=== PATIENT | male | born 1955 | race Caucasian/White ===

== ENCOUNTER 2016-10-25 23:45 | Emergency (ER) | payer OTHER ==
[~2016-10-25] VITALS: Ht 193 cm; Wt 163.3 kg
[~2016-10-25 23:45] MED LIST: ALLOPURINOL300 MG PO; DURAGESIC100 MCG TOP; LASIX20 MG PO; LISINOPRIL HCTZ1 TAB PO; OXYCODONE HCL30 MG PO; SYMBICORT 160/41 PUF INH; VENTOLIN1 PUF INH; Vitamin B12 PO; XANAX0.5 MG PO
--- NOTE | 2016-10-25 23:55 | ED CARDIAC/CP/PALPITATIONS ---
History of Present Illness General Chief Complaint: General Adult Stated Complaint: FEVER, SORE THROAT, "HES IN AFIB" PER Source: patient Exam Limitations: no limitations Vital Signs & Intake/Output Vital Signs & Intake/Output Vital Signs Date Time Temp Pulse Resp B/P Pulse O2 O2 Flow FiO2 Ox Delivery Rate 10/26 0259 100.7 10/26 0006 100.7 85 18 157/89 97 Room Air 10/26 0005 Room Air Allergies Coded Allergies: NO KNOWN ALLERGIES (10/26/16) Reconcile Medications Albuterol Sulfate (Ventolin) 1 UNIT PUF 2 PUF INH Q4P PRN SHORTNESS OF BREATH Albuterol Sulfate (Ventolin Hfa) 90 MCG HFA.AER.AD 2 PUF INH Q4-6 PRN PRN WHEEZE/COUGH Allopurinol 300 MG TAB 1 TAB PO DAILY GOUT (Reported) Alprazolam (Xanax) 0.5 MG TABLET 1 TAB PO BID PRN ANXIETY (Reported) Budesonide/Formoterol Fumara (Symbicort 160-4.5 Mcg Inhaler) 160 MCG/4.5 MCG PUF 2 PUF INH BID COPD Fentanyl Citrate (Duragesic) 75 MCG/HOUR PATCH.TD72 1 PATCH TOP Q48 PAIN ( Reported) HOLD IF MENTAL STATUS CHANGES OR BREATHING PROBLEMS Furosemide (Lasix) 20 MG TABLET 20 MG PO DAILY LEG SWELLING FOLLOW UP WITH PCP ABOUT NEED FOR CONTINUING Levofloxacin (Levaquin) 500 MG TABLET 1 TAB PO DAILY BRONCHITIS LISINOPRIL/HYDROCHLOROTHIAZIDE (Lisinopril-Hctz 20-25 MG Tab) 20 MG-25 MG TABLET 1 TAB PO DAILY HYPERTENSION (Reported) OXYCODONE HCL (Oxycodone HCl) 30 MG TABLET 1 TAB PO Q4 PAIN (Reported) HOLD IF MENTAL STATUS CHANGES, OR IF BREATHING PROBLEM [Vitamin B12] 250 MCG TAB 250 MCG PO DAILY VITAMIN SUPPLEMENT Triage Nurses Notes Reviewed? yes Onset: Gradual Duration: day(s): Timing: recent history Quality/Severity: moderate Location: cough and dyspnea Radiation: no radiation Activities at Onset: none Prior Chest Pain/Card Workup: history of atrial fibrillation. Negative stress test in 2016 Associated Symptoms: cough associated with phlegm HPI: 61-year-old gentleman history of atrial fibrillation on Peridex, history of cigarette smoking, presents with 2-3 days of cough productive of copious green and yellow sputum. He notes that he has had low-grade temperatures. He has a sore throat and nasal congestion. He states that he has no wheezing, chest pain , shortness of breath, increased pedal edema. He is otherwise well. Past History Travel History Traveled to [place] past 21 day No Medical History Any Pertinent Medical History? see below for history Cardiovascular: AFIB, hypertension Respiratory: COPD History of MRSA: No History of VRE: No History of CDIFF: No Surgical History Surgical History: non-contributory Psychosocial History Who do you live with Spouse What is your primary language Faroese Family History Family History, If Any: FATHER Relation not specified for: FH: COPD (chronic obstructive pulmonary disease) FH: diabetes mellitus FH: esophageal cancer FH: Rosibel Gehrig's disease Hx Contributory? No Review of Systems Review of Systems Constitutional: Reports: no symptoms. EENTM: Reports: no symptoms. Respiratory: Reports: no symptoms. Cardiovascular: Reports: no symptoms. GI: Reports: no symptoms. Genitourinary: Reports: no symptoms. Musculoskeletal: Reports: no symptoms. Skin: Reports: no symptoms. Neurological/Psychological: Reports: no symptoms. Hematologic/Endocrine: Reports: no symptoms. Immunologic/Allergic: Reports: no symptoms. All Other Systems: Reviewed and Negative Physical Exam Physical Exam General Appearance: well developed/nourished, no apparent distress Head: atraumatic, normal appearance Eyes: Bilateral: normal appearance. Ears, Nose, Throat: pharyngeal erythema Neck: normal inspection, supple, full range of motion Respiratory: rhonchi, no wheezing Cardiovascular: irregularly irregular Gastrointestinal: normal bowel sounds, soft, non-tender, no organomegaly Back: normal inspection, normal range of motion Extremities: normal inspection Neurologic/Psych: no motor/sensory deficits, awake, alert, oriented x 3 Skin: intact, normal color, warm/dry Core Measures ACS in differential dx? No Severe Sepsis Present: No Septic Shock Present: No Progress Differential Diagnosis: CHF/pulm edema, costochondritis, bronchitis vs pneumonia Plan of Care: Orders Procedure Date/time Status PARTIAL THROMBOPLASTIN TIME 10/26 2355 Complete PROTHROMBIN TIME 10/26 2355 Complete RAPID VIRAL INFLUENZA A 10/25 2354 Complete THROAT CULTURE W/QUICK STREP 10/25 2354 Active TROPONIN LEVEL 10/25 2354 Complete COMPREHENSIVE METABOLIC PANEL 10/25 2354 Complete CBC WITHOUT DIFFERENTIAL 10/25 2354 Complete EKG 10/25 2349 Active Laboratory Tests 10/26/16 0027: Anion Gap 9, Estimated GFR > 60, BUN/Creatinine Ratio 20.0, Glucose 107 H, Calcium 9.4, Total Bilirubin 0.6, AST 32, ALT 47, Alkaline Phosphatase 94, Troponin I 0.01, Total Protein 6.7, Albumin 4.0, Globulin 2.7, Albumin/Globulin Ratio 1.5, PT 12.0, INR 1.14, APTT 41 H, CBC w Diff NO MAN DIFF REQ, RBC 5.15, MCV 97.4 H, MCH 33.4 H, RDW 14.8 H, MPV 8.3, Gran % 82.9 H, Lymphocytes % 5.1 L, Monocytes % 11.9 H, Eosinophils % 0, Basophils % 0.1, Absolute Granulocytes 8.1 H, Absolute Lymphocytes 0.5 L, Absolute Monocytes 1.2 H, Absolute Eosinophils 0, Absolute Basophils 0, PUBS MCHC 34.3 Microbiology 10/26 0035 NASOPHARYN: Influenza Virus A & B Rapid Smear - COMP Diagnostic Imaging: Viewed by Me: Radiology Read. Discussed w/RAD: Radiology Read. CXR Impression: no acute abnormality, no infiltrates, normal size heart, normal mediastinum Initial ED EKG: AFIB, rate in low 100's Comments: PATIENT: ELAINE KNAPP PRESENT AGE: 61 PATIENT ACCOUNT NO: [id number] : 59 LOCATION: [facility] ORDERING PHYSICIAN: LAZ PIERSON MD SERVICE DATE: 10/25/16 EXAM TYPE: RAD - XRY-PORTABLE CHEST XRAY EXAMINATION: XR PORTABLE CHEST CLINICAL INFORMATION: Chest discomfort. COMPARISON: Chest 03/09/2014 TECHNIQUE: Portable AP view of the chest was obtained. 11:53 PM FINDINGS: Portion of the left lung base not included in study. Cardiac silhouette enlarged. No pulmonary vascular congestion. No infiltrate or large pleural effusion. IMPRESSION: No acute change of the chest. DICTATED BY: JULIETTE WINTERS MD DATE/TIME DICTATED:10/26/1617 TRAY SETTER:YEVGENIY DATE/TIME TRANSCRIBED:10/26/1617 CONFIDENTIAL, DO NOT COPY WITHOUT APPROPRIATE AUTHORIZATION. <Electronically signed in Other Vendor System> SIGNED BY: JULIETTE WINTERS MD 03/20/17 0022 Departure Departure Disposition: HOME OR SELF CARE Condition: Stable Clinical Impression Primary Impression: Bronchitis Secondary Impressions: Atrial fibrillation Referrals: LUIS JIMÉNEZ DO (PCP/Family) Departure Forms: Customer Survey General Discharge Information Prescriptions: Current Visit Scripts Levofloxacin (Levaquin) 1 TAB PO DAILY #7 TAB Albuterol Sulfate (Ventolin Hfa) 2 PUF INH Q4-6 PRN PRN WHEEZE/COUGH #1 INHAL Ref 1 Comments 10/26/16, 3:23AM... Pt feeling well.... cxr neg. labs benign... pt known to have afib, rate is well controlled.... he never had chest pain/syncopal type symptoms... he would like to go home... he is safe for discharge... gave rx for levaquin and albuterol... close follow up advised. Critical Care Note Critical Care Note Critical Care Time: non-applicable
[2016-10-26 00:06] VITALS: BP 157/89
--- NOTE | 2016-10-26 00:22 | RADIOLOGY REPORT ---
EXAMINATION: XR PORTABLE CHEST CLINICAL INFORMATION: Chest discomfort. COMPARISON: Chest 03/09/2014 TECHNIQUE: Portable AP view of the chest was obtained. 11:53 PM FINDINGS: Portion of the left lung base not included in study. Cardiac silhouette enlarged. No pulmonary vascular congestion. No infiltrate or large pleural effusion. IMPRESSION: No acute change of the chest.
[2016-10-26 01:34] LABS: ABSOLUTE BASOPHIL COUNT 0 /CUMM (0.0-0.2); ABSOLUTE EOSINOPHIL COUNT 0 /CUMM (0.0-0.7); ABSOLUTE GRANULOCYTE CT 8.1 /CUMM (1.4-6.5); ABSOLUTE LYMPH COUNT 0.5 /CUMM (1.2-3.4); ABSOLUTE MONOCYTE COUNT 1.2 /CUMM (0.10-0.60); BASOPHIL % 0.1 % (0.0-2.0); EOSINOPHIL % 0 % (0-5); GRANULOCYTE % 82.9 % (42.2-75.2); HEMATOCRIT 50.2 % (42-52); MEAN CORPUSCULAR HGB 33.4 PG (27.0-31.0); MEAN CORPUSCULAR HGB CONC 34.3 G/DL (33.0-37.0); MEAN CORPUSCULAR VOLUME 97.4 FL (80.0-94.0); MEAN PLATELET VOLUME 8.3 FL (7.4-10.4); PLATELET COUNT 132 /CUMM (130-400); RBC DISTRIBUTION WIDTH 14.8 % (11.5-14.5); RED BLOOD CELL CT 5.15 /CUMM (4.70-6.10); WHITE BLOOD CELL COUNT 9.8 /CUMM (4.8-10.8)
[2016-10-26 01:38] LABS: PTT 41 SEC (25-37)
[2016-10-26] MEDS ORDERED: LEVAQUIN500 M1 PO (03:12)
[2016-10-26] MEDS ORDERED: VENTOLIN HFA18 GM INH (03:12)
== END 2016-10-26 03:11 ==
LOC: ERH 23:45
PROVIDERS: Pediatrics
DX: J40 Bronchitis, not specified as acute or chronic (principal); I48.91 Unspecified atrial fibrillation; Z87.891 Personal history of nicotine dependence; J02.9 Acute pharyngitis, unspecified
CPT/HCPCS: 87804; 87804-59; 93005; 93010; J0456; J0696

== ENCOUNTER 2017-12-16 21:41 | Inpatient (IN) | payer OTHER ==
[~2017-12-16] VITALS: Ht 193 cm; Wt 150.6 kg
[~2017-12-16 21:41] MED LIST changes: +ALLOPURINOL300 M1 PO; -ALLOPURINOL300 MG PO; +DURAGESIC1 EAC4 TOP; -DURAGESIC100 MCG TOP; +LEVAQUIN500 M1 PO; -LISINOPRIL HCTZ1 TAB PO; +LISINOPRIL-HCT1 EAC1 PO; +OXYCODONE HCL20 M2 PO; -OXYCODONE HCL30 MG PO; +VENTOLIN HFA18 GM INH; +XANAX0.5 M1 PO; -XANAX0.5 MG PO
--- NOTE | 2017-12-16 22:10 | ED GI/GU/ABDOMINAL COMPLAINT ---
History of Present Illness General Chief Complaint: Abdominal Pain/Flank Pain Stated Complaint: "ABD PAIN" Source: patient, family Exam Limitations: no limitations Vital Signs & Intake/Output Vital Signs & Intake/Output Vital Signs Date Time Temp Pulse Resp B/P B/P Pulse O2 O2 Flow FiO2 Mean Ox Delivery Rate 12/17 0105 98.2 88 16 130/76 94 Nasal 4.0L Cannula 12/16 2308 Nasal 3.0L Cannula 12/16 2306 98.1 92 18 120/76 92 Nasal 3.0L Cannula 12/16 2229 77 16 116/70 91 Room Air 12/16 2153 97.6 76 18 109/64 91 Room Air ED Intake and Output 12/17 0000 12/16 1200 Intake Total 0 Output Total 0 Balance 0 Intake, Oral 0 Output, Urine 0 Patient 365 lb Weight Allergies Coded Allergies: NO KNOWN ALLERGIES (10/26/16) Reconcile Medications Albuterol Sulfate (Ventolin) 1 UNIT PUF 2 PUF INH Q4P PRN SHORTNESS OF BREATH Albuterol Sulfate (Ventolin Hfa) 90 MCG HFA.AER.AD 2 PUF INH Q4-6 PRN PRN WHEEZE/COUGH Allopurinol 300 MG TAB 1 TAB PO DAILY GOUT (Reported) Alprazolam (Xanax) 0.5 MG TABLET 1 TAB PO BID PRN ANXIETY (Reported) Budesonide/Formoterol Fumara (Symbicort 160-4.5 Mcg Inhaler) 160 MCG/4.5 MCG PUF 2 PUF INH BID COPD Fentanyl Citrate (Duragesic) 75 MCG/HOUR PATCH.TD72 1 PATCH TOP Q48 PAIN ( Reported) HOLD IF MENTAL STATUS CHANGES OR BREATHING PROBLEMS Furosemide (Lasix) 20 MG TABLET 20 MG PO DAILY LEG SWELLING FOLLOW UP WITH PCP ABOUT NEED FOR CONTINUING Levofloxacin (Levaquin) 500 MG TABLET 1 TAB PO DAILY BRONCHITIS LISINOPRIL/HYDROCHLOROTHIAZIDE (Lisinopril-Hctz 20-25 MG Tab) 20 MG-25 MG TABLET 1 TAB PO DAILY HYPERTENSION (Reported) OXYCODONE HCL (Oxycodone HCl) 30 MG TABLET 1 TAB PO Q4 PAIN (Reported) HOLD IF MENTAL STATUS CHANGES, OR IF BREATHING PROBLEM [Vitamin B12] 250 MCG TAB 250 MCG PO DAILY VITAMIN SUPPLEMENT Triage Note: 62 YEAR OLD MALE BIBA FROM WORK ([employer]) WITH GENERALIZED ABDOMINAL PAIN. REPORTS LAST NORMAL BM WAS YESTERDAY. DENIES N,V,D. EMS STATES HE WAS PALE AND DIAPHORETIC AT WORK. HX COPD,DIABETES, AFIB. PATIENT IS ON PRADAXA. HE IS AWAKE, ALERT, ORIENTED, CALM, AND COOPERATIVE. Triage Nurses Notes Reviewed? yes Onset: Gradual Duration: hour(s): Timing: single episode today Quality/Severity: severe Severity Numbers: 10 Location: periumbilical Radiation: no radiation HPI: 62YO MALE with hx of HTN, DM, COPD, afib on pradaxa presents to ED complaining of abdominal pain x 2 hours. Patient states that around 8 PM he began having gradually increasing periumbilical abdominal pain. Pain described as severe, 10 /10, without radiation, constant. Patient has no history of similar pain in the past. Patient has not had anything to eat since 0300 this a.m. Last bowel movement was yesterday and normal. Patient denies dyspnea, chest pain, back pain, urinary symptoms, diarrhea, constipation, nausea, vomiting, fevers, chills. (Amy García) Past History Travel History Traveled to [place] past 21 day No Medical History Any Pertinent Medical History? see below for history Neurological: NONE EENT: NONE Cardiovascular: AFIB, hypertension Respiratory: COPD Gastrointestinal: NONE Hepatic: NONE Renal: NONE Musculoskeletal: ARTHRITIS Psychiatric: NONE Endocrine: diabetes Blood Disorders: NONE Cancer(s): NONE PERSONAL FINANCIAL REPRESENTATIVE/Reproductive: NONE History of MRSA: No History of VRE: No History of CDIFF: No Surgical History Surgical History: non-contributory Psychosocial History Who do you live with Spouse What is your primary language Hungarian Family History Family History, If Any: FATHER Relation not specified for: FH: COPD (chronic obstructive pulmonary disease) FH: diabetes mellitus FH: esophageal cancer FH: Rosibel Gehrig's disease Hx Contributory? No (Amy García) Review of Systems Review of Systems Constitutional: Reports: no symptoms. EENTM: Reports: no symptoms. Respiratory: Reports: no symptoms. Cardiovascular: Reports: no symptoms. GI: Reports: see HPI. Genitourinary: Reports: no symptoms. Musculoskeletal: Reports: no symptoms. Skin: Reports: no symptoms. Neurological/Psychological: Reports: no symptoms. Hematologic/Endocrine: Reports: no symptoms. Immunologic/Allergic: Reports: no symptoms. All Other Systems: Reviewed and Negative (Malgorzata QUEEN,Aym Gonsales) Physical Exam Physical Exam General Appearance: well developed/nourished, alert, awake, mild distress, obese Head: atraumatic, normal appearance Eyes: Bilateral: normal appearance. Ears, Nose, Throat, Mouth: hearing grossly normal Neck: normal inspection, supple, full range of motion Respiratory: wheezing bilaterally Cardiovascular: normal peripheral pulses, irregularly irregular Peripheral Pulses: 2+ radial (R), 2+ radial (L), 2+ dorsalis pedis (R), 2+ dorsalis pedis (L) Gastrointestinal: normal bowel sounds, soft, no organomegaly, exam limited d/t obesity, periumbilical tenderness, no gaurding Back: normal inspection, normal range of motion Extremities: normal range of motion Neurologic/Psych: awake, alert, oriented x 3 Skin: intact, normal color, warm/dry Core Measures ACS in differential dx? No Sepsis Present: No Sepsis Focused Exam Completed? No (Malgorzata QUEEN,Amy Gonsales) Progress Differential Diagnosis: AAA, appendicitis, biliary colic, bowel obstruction, colon cancer, cholecystitis, diverticulitis, gastritis, hepatitis, hernia, ischemic bowel, inflamm bowel dis, pancreatitis, peptic ulcer, PUD/GERD, perforated viscous, pyelonephritis, SBO, UTI/pyelo Plan of Care: Orders Procedure Date/time Status Nothing by Mouth 12/17 B Active CBC WITHOUT DIFFERENTIAL 12/17 0600 Active BASIC ELECTROLYTES PLUS BUN&CR 12/17 0600 Active Pathway - chart 12/17 0152 Active TRC EVALUATION (GEN) 12/17 0142 Active OXYGEN SETUP (GEN) 12/17 0142 Active Saline Lock 12/17 0142 Active Pathway - chart 12/17 0142 Active Patient Data 12/17 0142 Active Code Status 12/17 0142 Active Add-on Test (ER Only) 12/17 0141 Active Admit to inpatient 12/17 0117 Active LACTIC ACID 12/17 0104 Complete Glucose Management Indications 12/17 UNK Active VTE Mechanical Prophylaxis 12/17 UNK Active Vital Signs 12/17 UNK Active MISTAKE 12/17 UNK Active Intake & Output 12/17 UNK Active FingerStick- Glucose 12/17 UNK Active CIWA 12/17 UNK Active Activity/Ambulation 12/17 UNK Active ETHANOL 12/16 2215 Active URINALYSIS 05/10 2204 Complete TROPONIN LEVEL 12/17 2203 Active LIPASE 12/17 2203 Active LACTIC ACID 12/17 2203 Active COMPREHENSIVE METABOLIC PANEL 12/17 2203 Active CBC WITHOUT DIFFERENTIAL 12/17 2203 Complete EKG 12/17 2203 Active Current Medications Sig/Pablo Start time Last Medication Dose Stop Time Status Admin Atorvastatin Calcium 10 MG 1700 12/17 170 AC (Lipitor) Allopurinol 300 MG DAILY 12/17 899 AC (Zyloprim) Amlodipine Besylate 10 MG DAILY 12/17 899 AC (Norvasc) Diltiazem HCl 360 MG DAILY 12/17 899 AC (Cardizem CD) Docusate Sodium 100 MG DAILY 12/17 899 AC (Colace) Fentanyl Citrate 100 MCG Q48 12/17 899 UNVr (Duragesic) Folic Acid 1 MG DAILY 12/17 899 AC (Folic Acid) Furosemide 40 MG DAILY 12/17 899 AC (Lasix) Hydrochlorothiazide 25 MG DAILY 12/17 899 AC (Hydrodiuril) Lisinopril 20 MG DAILY 12/17 899 AC (Prinivil) Multivitamins 1 TAB DAILY 12/17 899 AC (Theragran Vitamins) Nicotine 14 MG Q24 12/17 899 AC (Nicotine Cq) Potassium Chloride 10 MEQ DAILY 12/17 899 AC (K-Dur) Thiamine HCl 100 MG DAILY 12/17 899 AC (Vitamin B1) Insulin Aspart 0 AC 12/17 699 AC (NovoLOG) Acetaminophen 1,000 MG Q6H 12/17 199 AC 12/17 (Ofirmev) 12/17 N/A 1 UNIT (No Carrier) Morphine Sulfate 2 MG Q4P PRN 12/17 199 AC (MORPHINE SULFATE) Oxycodone HCl 20 MG 4 TIMES/DAY PRN 12/17 199 AC (Roxicodone) Budesonide/ 2 PUF BID 12/17 146 AC Formoterol Fumarate (Symbicort) Dextrose 50 GM PER PROTOCL PRN 12/17 144 UNVr (Dextrose 50%) Albuterol Sulfate 2 PUF Q4-6 PRN PRN 12/17 129 CAN (Ventolin) Albuterol Sulfate 2 PUF Q4P PRN 12/17 129 AC (Ventolin) Ondansetron HCl 4 MG Q8P PRN 05/11 0130 AC (Zofran) Sodium Chloride 1,000 ML .Q10H 12/17 0130 AC 12/17 (Normal Saline 0.9%) 0130 Laboratory Tests 12/17/17 0135: Urine Color YEL, Urine Clarity HAZY H, Urine pH 6.5, Ur Specific Gardner 1.010, Urine Protein 30 H, Urine Ketones NEG, Urine Nitrite NEG, Urine Bilirubin NEG, Urine Urobilinogen 4.0 H, Ur Leukocyte Esterase NEG, Ur Microscopic SEDIMENT EXAMINED, Urine RBC RARE, Urine WBC RARE, Ur Epithelial Cells RARE, Urine Bacteria RARE H, Urine Mucus RARE, Urine Hemoglobin NEG, Urine Glucose NEG 12/17/17 0115: Lactic Acid 1.9 12/16/17 2215: Anion Gap 17 H, Estimated GFR > 60, BUN/Creatinine Ratio 25.7 H, Glucose 111 H, Lactic Acid 3.6 H, Calcium 9.2, Total Bilirubin 0.8, AST 24, ALT 29, Alkaline Phosphatase 79, Troponin I < 0.01, Total Protein 7.1, Albumin 4.3, Globulin 2.8, Albumin/Globulin Ratio 1.5, Lipase 45, CBC w Diff NO MAN DIFF REQ, RBC 5.24, MCV 99.2 H, MCH 32.8 H, MCHC 33.1, RDW 14.0, MPV 7.3 L, Gran % 72.9 , Lymphocytes % 15.5 L, Monocytes % 10.4 H, Eosinophils % 0.8, Basophils % 0.4 , Absolute Granulocytes 8.0 H, Absolute Lymphocytes 1.7, Absolute Monocytes 1.1 H, Absolute Eosinophils 0.1, Absolute Basophils 0, Serum Alcohol Pending Patient with wheezing on physical exam however reports no dyspnea, he does have COPD at baseline. Patient complaining of severe abdominal pain, will obtain CT scan of his abdomen to assess for acute abdominal pathology. Patient arrives in mild distress relating to his pain. He also has history of atrial fibrillation. ischemic colitis is possible, CT scan with IV contrast to be obtained. Patient reporting reduction of pain from 10/10 to 3/10 following IV pain medications. The patient was signed out to Dr. Stovall pending labs, CT scan. Initial ED EKG: atrial fibrillation @76bpm, nonspecific IVCD Prior EKG: unchanged (10/25/16) Hand-Off Endorsed To: Major Stovall MD Endorsed Time: 2300 Pending: CT, labs (Amy García) Diagnostic Imaging: Viewed by Me: CT Scan. Discussed w/RAD: CT Scan. Radiology Impression: Prominent periumbilical hernia containing loops of small bowel which are mildly prominent fluid-filled. Mild stranding is seen in the associated fat. This may represent an incarcerated hernia. There is no evidence of bowel obstruction at this time, with the remainder of the small bowel normal in caliber and gas and stool seen throughout the colon. Additional findings as above, including cysts in the liver and left kidney. Gallbladder sludge. Ectatic infrarenal abdominal aorta. Comments: Sepsis bolus not given secondary to cardiac condition and risk of volume overload and CHF. (Major Stovall MD) Departure Departure Disposition: STILL A PATIENT Condition: Stable Referrals: Jose A Melendez DO (PCP/Family) Departure Forms: Customer Survey General Discharge Information (Amy García) Departure Clinical Impression Primary Impression: Incarcerated umbilical hernia Secondary Impressions: Abdominal pain Qualifiers: Abdominal location: periumbilical Qualified Code: R10.33 - Periumbilical pain Chronic atrial fibrillation Admission Note Spoke With: Malick Lynch DO Documentation of Exam: Documentation of any treatments & extenuating circumstances including Concerns Regarding Discharge (functional status, medication knowledge or non-compliance, living conditions, etc.) that warrant an admission rather than observation: Serial CIWA nothing by mouth IV hydration surgical evaluation medication adjustment continuing care discharge planning PA/[facility] Co-Sign Statement Statement: ED Attending supervision documentation- x I saw and evaluated the patient. I have also reviewed all the pertinent lab results and diagnostic results. I agree with the findings and the plan of care as documented in the PA's/[facility]'s documentation. Periumbilical hernia defect unable to be reduced, later reduced by surgery. [] I have reviewed the ED Record and agree with the PA's/[facility]'s documentation. [] Additions or exceptions (if any) to the PAs/[facility]'s note and plan are summarized below: [] (Major Stovall MD)
[2017-12-16 22:27] LABS: ABSOLUTE BASOPHIL COUNT 0 /CUMM (0.0-0.2); ABSOLUTE EOSINOPHIL COUNT 0.1 /CUMM (0.0-0.7); ABSOLUTE LYMPH COUNT 1.7 /CUMM (1.2-3.4); ABSOLUTE MONOCYTE COUNT 1.1 /CUMM (0.10-0.60); BASOPHIL % 0.4 % (0.0-2.0); EOSINOPHIL % 0.8 % (0-5); GRANULOCYTE % 72.9 % (42.2-75.2); MEAN CORPUSCULAR HGB 32.8 PG (27.0-31.0); MEAN CORPUSCULAR HGB CONC 33.1 G/DL (33.0-37.0); MEAN CORPUSCULAR VOLUME 99.2 FL (80.0-94.0); MEAN PLATELET VOLUME 7.3 FL (7.4-10.4); PLATELET COUNT 231 /CUMM (130-400); RED BLOOD CELL CT 5.24 /CUMM (4.70-6.10); WHITE BLOOD CELL COUNT 10.9 /CUMM (4.8-10.8)
--- NOTE | 2017-12-16 23:54 | CT SCAN REPORT ---
EXAMINATION: CT ABDOMEN AND PELVIS WITH CONTRAST CLINICAL INFORMATION: Periumbilical abdominal pain for 2 hours. COMPARISON: None TECHNIQUE: Multidetector volumetric imaging was performed of the abdomen and pelvis following IV administration of 95 mL of Optiray 320 intravenous contrast. Sagittal and coronal reformatted images were obtained on the technologist's workstation. DLP: 1580 mGy-cm FINDINGS: LUNG BASES: Basilar atelectasis. Coronary artery calcifications. The heart is mildly enlarged. LIVER, GALLBLADDER, AND BILIARY TREE: The liver is normal in size, shape, and attenuation. There is a 2.2 cm cyst in segment 5 of the liver. No solid hepatic lesion or biliary ductal dilatation is present. There is layering high attenuation within the gallbladder lumen suggestive of sludge. No gallbladder wall thickening or pericholecystic fluid. PANCREAS: Unremarkable. SPLEEN: Unremarkable. ADRENAL GLANDS: Unremarkable. KIDNEYS AND URETERS: The kidneys are normal in size, shape, and attenuation. No hydronephrosis, hydroureter, or calculi seen. Mild symmetric perinephric stranding. There is a 2 cm cortical cyst at the lower pole of the left kidney. BLADDER: Unremarkable. GASTROINTESTINAL TRACT: The stomach is decompressed with no gross abnormality. The proximal small bowel is normal in caliber. There is no obstruction. Small bowel extends into a prominent periumbilical hernia. There is stranding in the region of the bowel with mild fluid-filled prominent appearance. Bowel enters and exits the hernia twice. Gas and stool are seen in the colon. No colonic wall thickening. No free air. No fluid collection. ABDOMINAL WALL: Prominent ventral periumbilical hernia containing small bowel. The abdominal wall defect measures 4.7 cm transverse by 3.9 cm cc. The hernia sac measures 12.5 x 8.3 x 10.4 cm. Small fat-containing right inguinal hernia also noted. LYMPH NODES: Normal. VASCULAR: Ectatic infrarenal abdominal aorta measuring 3.7 cm AP. Moderate atherosclerotic calcifications. PELVIC VISCERA: The prostate and seminal vesicles are unremarkable. OSSEOUS STRUCTURES: No acute or suspicious osseous abnormality. Moderate degenerative changes throughout the spine. Moderate degenerative changes of the hips. IMPRESSION: Prominent periumbilical hernia containing loops of small bowel which are mildly prominent fluid-filled. Mild stranding is seen in the associated fat. This may represent an incarcerated hernia. There is no evidence of bowel obstruction at this time, with the remainder of the small bowel normal in caliber and gas and stool seen throughout the colon. Additional findings as above, including cysts in the liver and left kidney. Gallbladder sludge. Ectatic infrarenal abdominal aorta. This critical result was discussed with Dr. Stovall by telephone at 12/16/2017 11:47 PM and it was ascertained that the content and urgency of the report was understood at the time of direct communication.
[2017-12-17] VITALS (12 sets, daily range): BP systolic 128–156; BP diastolic 75–98
--- NOTE | 2017-12-17 02:08 | Cons- General Surgery ---
General Information and HPI Consulting Request Date of Consult: 12/17/17 Requested By: DR. THOMAS Reason for Consult: ABDOMINAL PAIN Source of Information: patient, family Exam Limitations: no limitations History of Present Illness: This is a 62-year-old obese male who presented to the emergency room complaining of diffuse abdominal pain for the last 6 hours. Patient was at work and was not feeling well. He described a continuous dull persistent ache at the area of his belly button.. He had feelings of nausea without vomiting and increasing pain in this area. At one point he felt clammy and short of breath but this subsided. He denies any fevers or chills fevers or chills. He has had 3 abdominal surgeries in the past right inguinal hernia repair 2 and a left inguinal hernia repair. This was performed years ago and he has had no issues up until today . His last bowel move was yesterday and it was normal appearing he does not complain of any bloody stools or urinary symptoms. Allergies/Medications Allergies: Coded Allergies: NO KNOWN ALLERGIES (10/26/16) Home Med List: Albuterol Sulfate (Proair Hfa) 90 MCG HFA.AER.AD 2 PUF INH Q4-PRN PRN Shortness of breath (Reported) Allopurinol 300 MG TABLET 1 TAB PO DAILY GOUT (Reported) Alprazolam (Xanax) 0.5 MG TABLET 1 TAB PO BIDP PRN ANXIETY (Reported) Atorvastatin Calcium 10 MG TABLET 1 TAB PO DAILY Heart Health (Reported) Budesonide/Formoterol Fumarate (Symbicort 160-4.5 Mcg Inhaler) 160 MCG-4.5 MCG/ ACTUATION HFA.AER.AD 2 PUF INH BID COPD (Reported) Celecoxib 200 MG CAPSULE 1 CAP PO BID Pain (Reported) Cyanocobalamin (Vitamin B-12) (Vitamin B-12) 250 MCG TABLET 1 TAB PO DAILY VITAMIN SUPPORT (Reported) Dabigatran Etexilate Mesylate (Pradaxa 150 MG) 150 MG CAPSULE 1 CAP PO BID Atrial Fibrilliation (Reported) Diltiazem HCl (Diltiazem 24HR ER) 360 MG CAP.ER.24H 1 CAP PO DAILY Blood Pressure (Reported) Docusate Sodium (Colace) 100 MG CAPSULE 1 CAP PO DAILY PRN Constipation Fentanyl Citrate (Duragesic) 100 MCG/HOUR PATCH.TD72 1 PAT TOP Q48 Pain ( Reported) Furosemide 40 MG TABLET 1 TAB PO DAILY Fluid Retention (Reported) Lisinopril/Hydrochlorothiazide (Lisinopril-Hctz 20-25 MG Tab) 20 MG-25 MG TABLET 1 TAB PO DAILY HTN (Reported) Metformin HCl 500 MG TABLET 1 TAB PO BID Diabetes (Reported) Metoprolol Tartrate 50 MG TABLET 1 TAB PO BID Atrial Fibrilliation Oxycodone HCl 20 MG TABLET 1 TAB PO Q4 Pain (Reported) Potassium Chloride 10 MEQ CAPSULE.ER 1 CAP PO DAILY Supplement (Reported) Sennosides (Senna) 8.6 MG TABLET 2 TAB PO DAILY PRN Constipation Zolpidem Tartrate (Ambien) 10 MG TABLET 1 TAB PO QPMP Sleep (Reported) Current Medications: Current Medications Sig/Pablo Start time Last Medication Dose Route Stop Time Status Admin Acetaminophen 1,000 MG Q6H 12/17 199 UNVr N/A 1 UNIT IV 12/17 2013 Albuterol Sulfate 2 PUF Q4 12/17 199 UNVr INH Albuterol Sulfate 2 PUF Q4-6 PRN PRN 12/17 129 CAN INH Albuterol Sulfate 2 PUF Q4P PRN 12/17 129 AC INH Allopurinol 300 MG DAILY 12/17 899 UNVr PO Amlodipine Besylate 10 MG DAILY 12/17 899 UNVr PO Atorvastatin Calcium 10 MG 1700 12/17 170 UNVr PO Budesonide/ 2 PUF BID 12/17 146 UNVr Formoterol Fumarate INH Dextrose 50 GM PER PROTOCL PRN 12/17 144 UNVr IV Diltiazem HCl 360 MG DAILY 12/17 899 UNVr PO Docusate Sodium 100 MG DAILY 12/17 899 UNVr PO Fentanyl Citrate 100 MCG Q48 12/17 899 UNVr TOP Folic Acid 1 MG DAILY 12/17 899 UNVr PO Furosemide 40 MG DAILY 12/17 899 UNVr PO Hydrochlorothiazide 25 MG DAILY 12/17 899 UNVr PO Insulin Aspart 0 AC 12/17 699 UNVr SC Ketorolac 0 .STK-MED ONE 12/16 2238 DC Tromethamine .ROUTE Ketorolac 15 MG ONCE ONE 12/16 2214 DC 12/16 Tromethamine IV 12/16 Lisinopril 20 MG DAILY 12/17 899 UNVr PO Morphine Sulfate 2 MG Q4P PRN 12/17 199 UNVr IV Morphine Sulfate 0 .STK-MED ONE 12/17 0001 DC .ROUTE Morphine Sulfate 6 MG ONCE ONE 12/165 DC 12/17 IV 12/17 2315 0030 Morphine Sulfate 0 .STK-MED ONE 12/16 224 DC .ROUTE Morphine Sulfate 2 MG ONCE ONE 12/16 2214 DC 12/16 IV 12/17 2215 223 Multivitamins 1 TAB DAILY 12/17 899 UNVr PO Nicotine 14 MG Q24 12/17 899 UNVr TOP Ondansetron HCl 4 MG Q8P PRN 12/17 129 UNVr IV Oxycodone HCl 20 MG 4 TIMES/DAY PRN 12/17 199 UNVr PO Potassium Chloride 10 MEQ DAILY 12/17 899 UNVr PO Sodium Chloride 1,000 ML .Q10H 12/17 129 UNVr 12/17 IV 0130 Sodium Chloride 1,000 ML BOLUS ONE 12/16 2214 DC 12/16 IV 12/16 2313 222 Thiamine HCl 100 MG DAILY 12/17 899 UNVr PO Past History Medical History Neurological: NONE EENT: NONE Cardiovascular: AFIB, hypertension Respiratory: COPD Gastrointestinal: NONE Hepatic: NONE Renal: NONE Musculoskeletal: ARTHRITIS Psychiatric: NONE Endocrine: diabetes Blood Disorders: NONE Cancer(s): NONE HELPDESK MANAGER/Reproductive: NONE Surgical History Pertinent Surgical History: non-contributory Family History Relations & Conditions If Any: FATHER Relation not specified for: FH: COPD (chronic obstructive pulmonary disease) FH: diabetes mellitus FH: esophageal cancer FH: Rosibel Gehrig's disease Review of Systems Review of Systems: Constitutional: No chills no fever no weakness HEENT: No blurred vision visual changes no throat pain nasal pain CV: denies chest pain edema orthopnea syncopal episode no peripheral edema Respiratory: No cough hemoptysis shortness of breath or wheeze GI: POS abdominal pain POS bloating NO constipation, diarrhea, bloody stools no vomiting Musculoskeletal: No neck pain back pain or joint swelling Skin: No recent acute changes in skin Neurological: No dizziness weakness or acute mental status changes Hematologic: no history of blood dyscrasia to include PE DVT or bleeding disorder No reported reaction to general anesthetics No recent fevers fluids or infections Exam & Diagnostic Data Vital Signs and I&O Vital Signs Date Time Temp Pulse Resp B/P B/P Pulse O2 O2 Flow FiO2 Mean Ox Delivery Rate 12/17 0105 98.2 88 16 130/76 94 Nasal 4.0L Cannula 12/16 2308 Nasal 3.0L Cannula 12/16 2306 98.1 92 18 120/76 92 Nasal 3.0L Cannula 12/16 2229 77 16 116/70 91 Room Air 12/16 2153 97.6 76 18 109/64 91 Room Air Intake & Output 12/17 0812/17 0000 12/16 1600 12/16 0800 12/16 0000 12/15 1600 Intake Total 1000 0 Output Total 0 Balance 1000 0 Intake, IV 1000 Intake, Oral 0 Output, Urine 0 Patient [address] scan shows Prominent periumbilical hernia containing loops of small bowel which are mildly prominent fluid-filled. Mild stranding is seen in the associated fat. This may represent an incarcerated hernia. There is no evidence of bowel obstruction at this time, with the remainder of the small bowel normal in caliber and gas and stool seen throughout the colon. Physical Exam: Physical examination patient is lying in bed alert and oriented 3 and family is present answering questions for the patient. When prompted he points to his abdomen and says he is very sore. Otherwise he has been sleeping. HEENT is within normal limits Neck is supple nontender with active range of motion CHest is clear to auscultation symmetric without rales rhonchi or wheeze Heart is regular rate rhythm without murmurs rubs gallops Abdomen is obese with tenderness along the periumbilical area. There is fullness and bulging of the umbilicus. Surrounding quadrants of the abdomen are nontender with positive bowel sounds. Patient is positioned in Trendelenburg and with gentle downward pressure on the umbilicus hernia contents are reduced with minimal pain. Patient tolerated this well. An abdominal binder was ordered BILATERAL lower extremities shows stasis dermatitis and chronic skin changes. There is no edema and no calf tenderness. 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 Admission Lab Results I reviewed the following labs: Laboratory Tests 12/17 12/17 0135 0115 Chemistry Lactic Acid (0.7 - 2.1 mmol/L) 1.9 Urines Urine Color (YEL,AMB,STR) YEL Urine Clarity (CLEAR) HAZY H Urine pH (5.0 - 8.0) 6.5 Ur Specific Perry (1.001 - 1.035) 1.010 Urine Protein (NEG,<30 MG/DL) 30 H Urine Ketones (NEG) NEG Urine Nitrite (NEG) NEG Urine Bilirubin (NEG) NEG Urine Urobilinogen (0.1 - 1.0 EU/dl) 4.0 H Ur Leukocyte Esterase (NEG) NEG Ur Microscopic SEDIMENT EXAMINED Urine RBC (0 - 5 /HPF) RARE Urine WBC (0 - 2 /HPF) RARE Ur Epithelial Cells (NONE,FEW) RARE Urine Bacteria (NEG/NONE) RARE H Urine Mucus (FEW,NONE) RARE Urine Hemoglobin (NEG) NEG Urine Glucose (N MG/DL) NEG 12/16 2215 Chemistry Sodium (137 - 145 mmol/L) 135 L Potassium (3.5 - 5.1 mmol/L) 3.2 L Chloride (98 - 107 mmol/L) 84 L Carbon Dioxide (22 - 30 mmol/L) 34 H Anion Gap (5 - 16) 17 H BUN (9 - 20 mg/dL) 18 Creatinine (0.7 - 1.2 mg/dL) 0.7 Estimated GFR (>60 ml/min) > 60 BUN/Creatinine Ratio (7 - 25 %) 25.7 H Glucose (65 - 99 mg/dL) 111 H Lactic Acid (0.7 - 2.1 mmol/L) 3.6 H Calcium (8.4 - 10.2 mg/dL) 9.2 Total Bilirubin (0.2 - 1.3 mg/dL) 0.8 AST (17 - 59 U/L) 24 ALT (21 - 72 U/L) 29 Alkaline Phosphatase (< 127 U/L) 79 Troponin I (<0.11 ng/ml) < 0.01 Total Protein (6.3 - 8.2 g/dL) 7.1 Albumin (3.5 - 5.0 g/dL) 4.3 Globulin (1.9 - 4.2 gm/dL) 2.8 Albumin/Globulin Ratio (1.1 - 2.2 %) 1.5 Lipase (23 - 300 U/L) 45 Hematology CBC w Diff NO MAN DIFF REQ WBC (4.8 - 10.8 /CUMM) 10.9 H RBC (4.70 - 6.10 /CUMM) 5.24 Hgb (14.0 - 18.0 G/DL) 17.2 Hct (42 - 52 %) 52.0 MCV (80.0 - 94.0 FL) 99.2 H MCH (27.0 - 31.0 PG) 32.8 H MCHC (33.0 - 37.0 G/DL) 33.1 RDW (11.5 - 14.5 %) 14.0 Plt Count (130 - 400 /CUMM) 231 MPV (7.4 - 10.4 FL) 7.3 L Gran % (42.2 - 75.2 %) 72.9 Lymphocytes % (20.5 - 51.1 %) 15.5 L Monocytes % (1.7 - 9.3 %) 10.4 H Eosinophils % (0 - 5 %) 0.8 Basophils % (0.0 - 2.0 %) 0.4 Absolute Granulocytes (1.4 - 6.5 /CUMM) 8.0 H Absolute Lymphocytes (1.2 - 3.4 /CUMM) 1.7 Absolute Monocytes (0.10 - 0.60 /CUMM) 1.1 H Absolute Eosinophils (0.0 - 0.7 /CUMM) 0.1 Absolute Basophils (0.0 - 0.2 /CUMM) 0 Toxicology Serum Alcohol (<10 MG/DL) Pending Admission Meds I reviewed the following Meds: Current Medications Sig/Pablo Start time Last Medication Dose Stop Time Status Admin Acetaminophen 1,000 MG Q6H 12/17 199 UNVr 12/17 (irmev) 12/17 N/A 1 UNIT (No Carrier) Albuterol Sulfate 2 PUF Q4 12/17 020 UNVr (Ventolin) Albuterol Sulfate 2 PUF Q4-6 PRN PRN 12/17 129 CAN (Ventolin) Albuterol Sulfate 2 PUF Q4P PRN 12/17 013 AC (Ventolin) Allopurinol 300 MG DAILY 12/17 899 UNVr (Zyloprim) Amlodipine Besylate 10 MG DAILY 12/17 899 UNVr (Norvasc) Atorvastatin Calcium 10 MG 1700 12/17 170 UNVr (Lipitor) Budesonide/ 2 PUF BID 12/17 146 UNVr Formoterol Fumarate (Symbicort) Dextrose 50 GM PER PROTOCL PRN 12/17 144 UNVr (Dextrose 50%) Diltiazem HCl 360 MG DAILY 12/17 899 UNVr (Cardizem CD) Docusate Sodium 100 MG DAILY 12/17 899 UNVr (Colace) Fentanyl Citrate 100 MCG Q48 12/17 899 UNVr (Duragesic) Folic Acid 1 MG DAILY 12/17 899 UNVr (Folic Acid) Furosemide 40 MG DAILY 12/17 899 AC (Lasix) Hydrochlorothiazide 25 MG DAILY 12/17 899 AC (Hydrodiuril) Insulin Aspart 0 AC 12/17 07 AC (NovoLOG) Lisinopril 20 MG DAILY 12/17 899 AC (Prinivil) Morphine Sulfate 2 MG Q4P PRN 12/17 199 AC (MORPHINE SULFATE) Multivitamins 1 TAB DAILY 12/17 899 AC (Theragran Vitamins) Nicotine 14 MG Q24 12/17 899 AC (Nicotine Cq) Ondansetron HCl 4 MG Q8P PRN 12/17 013 AC (Zofran) Oxycodone HCl 20 MG 4 TIMES/DAY PRN 12/17 020 AC (Roxicodone) Potassium Chloride 10 MEQ DAILY 12/17 899 AC (K-Dur) Sodium Chloride 1,000 ML .Q10H 12/17 0130 UNVr 12/17 (Normal Saline 0.9%) 0130 Thiamine HCl 100 MG DAILY 12/17 899 AC (Vitamin B1) Assessment/Plan Assessment/Plan 62-year-old male with incarcerated umbilical hernia that has been reduced in the ER without incident. He will be admitted on the surgical service and observed tonight with medical clearance in the morning. OR planning for umbilical hernia repair has been discussed for the am. Patient has a history of atrial fibrillation and takes pradaxa, last dose was 2 PM today this will be held, put on Alps for DVT prophylaxis tonight. Patient is on chronic pain medication for psoriatic arthritis this has been continued along with breakthrough medication. He also is a heavy smoker and drinks daily. Nicotine patch has been ordered and he has been placed on CIWA protocol. We will continue to watch him carefully through the night and if his pain returns reassess his hernia. His labs are stable and his lactic acid has fallen to 1.9. Currently he has no pain and is comfortable Consult Acknowledgment - Thank you for your consult request.
--- NOTE | 2017-12-17 02:32 | Cons- Medical ---
Rachel Soto MD 12/17/17 0231: General Information and HPI Consulting Request Date of Consult: 12/17/17 Requested By: Malick Lynch DO Reason for Consult: Preoperative evaluation Source of Information: patient, family, old records, EMS Exam Limitations: no limitations History of Present Illness: Patient is a 62 YO M with PMH significant for COPD, A.fib on pradaxa, JERRELL (not compliant with CPAP), Psoriatic arthritis, Venous insufficiency, regular alcohol consumption, HTN presented [facility] after developing abdominal pain this evening. He was found to have periumbilical hernia with stranding on abdominal CT requiring surgery. Hence medicine team consulted for preoperative clearence. Patient had good functional status at baseline. He denies any shortness of breath, chest pain, palpitations (asymptomatic A.fib). He had a stress test and ECHO in 2016 which were apparently normal. He smokes 1pack per day for the past 40 yrs (quit 8 yrs in between), regularly consumes beer 4/day. He often experiences shakes without alcohol, however never required admission for withdrawl. Denies any drug abuse. NKDA Reportedly compliant with medications Allergies/Medications Allergies: Coded Allergies: NO KNOWN ALLERGIES (10/26/16) Home Med List: Albuterol Sulfate (Ventolin) 1 UNIT PUF 2 PUF INH Q4P PRN SHORTNESS OF BREATH Albuterol Sulfate (Ventolin Hfa) 90 MCG HFA.AER.AD 2 PUF INH Q4-6 PRN PRN WHEEZE/COUGH Allopurinol 300 MG TAB 1 TAB PO DAILY GOUT (Reported) Alprazolam (Xanax) 0.5 MG TABLET 1 TAB PO BID PRN ANXIETY (Reported) Budesonide/Formoterol Fumara (Symbicort 160-4.5 Mcg Inhaler) 160 MCG/4.5 MCG PUF 2 PUF INH BID COPD Fentanyl Citrate (Duragesic) 75 MCG/HOUR PATCH.TD72 1 PATCH TOP Q48 PAIN ( Reported) HOLD IF MENTAL STATUS CHANGES OR BREATHING PROBLEMS Furosemide (Lasix) 20 MG TABLET 20 MG PO DAILY LEG SWELLING FOLLOW UP WITH PCP ABOUT NEED FOR CONTINUING Levofloxacin (Levaquin) 500 MG TABLET 1 TAB PO DAILY BRONCHITIS LISINOPRIL/HYDROCHLOROTHIAZIDE (Lisinopril-Hctz 20-25 MG Tab) 20 MG-25 MG TABLET 1 TAB PO DAILY HYPERTENSION (Reported) OXYCODONE HCL (Oxycodone HCl) 30 MG TABLET 1 TAB PO Q4 PAIN (Reported) HOLD IF MENTAL STATUS CHANGES, OR IF BREATHING PROBLEM [Vitamin B12] 250 MCG TAB 250 MCG PO DAILY VITAMIN SUPPLEMENT Current Medications: Current Medications Sig/Pablo Start time Last Medication Dose Route Stop Time Status Admin Acetaminophen 0 .STK-MED ONE 12/17 206 DC IV Acetaminophen 1,000 MG Q6H 12/17 199 AC 12/17 N/A 1 UNIT IV 12/17 Albuterol Sulfate 2 PUF Q4 12/17 199 DC INH Albuterol Sulfate 2 PUF Q4-6 PRN PRN 12/17 129 CAN INH Albuterol Sulfate 2 PUF Q4P PRN 12/17 129 AC INH Allopurinol 300 MG DAILY 12/17 899 AC PO Amlodipine Besylate 10 MG DAILY 12/17 899 CAN PO Atorvastatin Calcium 10 MG 1700 12/17 1700 AC PO Budesonide/ 2 PUF BID 12/17 146 AC Formoterol Fumarate INH Dextrose 50 GM PER PROTOCL PRN 12/17 144 UNVr IV Diltiazem HCl 360 MG DAILY 12/17 899 CAN PO Diltiazem HCl 180 MG DAILY 12/17 899 UNVr PO Docusate Sodium 100 MG DAILY 12/17 899 AC PO Fentanyl Citrate 100 MCG Q48 12/17 899 UNVr TOP Folic Acid 1 MG DAILY 12/17 899 AC PO Furosemide 40 MG DAILY 12/17 899 CAN PO Heparin Sodium/ 25,000 UNIT Q24H 12/17 244 UNVr Dextrose IV Dextrose/Water 500 ML Hydrochlorothiazide 25 MG DAILY 12/17 899 CAN PO Insulin Aspart 0 AC 12/17 07 CAN SC Insulin Human Regular 0 Q6 12/17 244 UNVr SC Ketorolac 0 .STK-MED ONE 12/16 2238 DC Tromethamine .ROUTE Ketorolac 15 MG ONCE ONE 12/16 2214 DC 12/16 Tromethamine IV 12/16 Lisinopril 20 MG DAILY 12/17 899 CAN PO Lorazepam 0.5 MG Q4P PRN 12/17 244 UNVr IV Morphine Sulfate 2 MG Q4P PRN 12/17 199 AC IV Morphine Sulfate 0 .STK-MED ONE 12/17 2314 DC .ROUTE Morphine Sulfate 6 MG ONCE ONE 12/16 2314 DC 12/17 IV 12/16 231 0030 Morphine Sulfate 0 .STK-MED ONE 12/17 2239 DC .ROUTE Morphine Sulfate 2 MG ONCE ONE 12/16 2214 DC 12/16 IV 12/17 2215 2238 Multivitamins 1 TAB DAILY 12/17 899 AC PO Nicotine 14 MG Q24 12/17 899 AC TOP Ondansetron HCl 4 MG Q8P PRN 12/17 013 AC IV Oxycodone HCl 20 MG 4 TIMES/DAY PRN 12/17 0200 AC PO Potassium Chloride 10 MEQ DAILY 12/17 899 AC PO Sodium Chloride 1,000 ML .Q10H 12/17 013 AC 12/17 IV 0130 Sodium Chloride 1,000 ML BOLUS ONE 12/16 2214 DC 12/16 IV 12/16 2313 2225 Thiamine HCl 100 MG DAILY 12/17 899 AC PO Review of Systems Review of Systems Constitutional: Reports: see HPI. EENTM: Reports: see HPI. Cardiovascular: Reports: see HPI. Denies: chest pain, orthopena, palpitations. Respiratory: Reports: see HPI. GI: Reports: no symptoms. Genitourinary: Reports: no symptoms. Musculoskeletal: Reports: no symptoms. Skin: Reports: no symptoms. Neurological/Psychological: Reports: no symptoms. Past History Travel History Traveled to [place] past 21 day No Medical History Neurological: NONE EENT: NONE Cardiovascular: AFIB, hypertension Respiratory: COPD Gastrointestinal: NONE Hepatic: NONE Renal: NONE Musculoskeletal: ARTHRITIS Psychiatric: NONE Endocrine: diabetes Blood Disorders: NONE Cancer(s): NONE PROMOTION WRITER/Reproductive: NONE Surgical History Surgical History: non-contributory Family History Relations & Conditions If Any: FATHER Relation not specified for: FH: COPD (chronic obstructive pulmonary disease) FH: diabetes mellitus FH: esophageal cancer FH: Rosibel Gehrig's disease Psychosocial History Where Do You Live? Home Who Do You Live With? spouse Services at Home: None Smoking Status: Current Everyday Smoker ETOH Use: heavy use Illicit Drug Use: denies illicit drug use Functional Ability ADLs Independent: dressing, eating, toileting, bathing. Ambulation: independent IADLs Independent: shopping, housework, finances, food prep, telephone, transportation , medication admin. Exam & Diagnostic Data Last 24 Hrs of Vital Signs/I&O Vital Signs Date Time Temp Pulse Resp B/P B/P Pulse O2 O2 Flow FiO2 Mean Ox Delivery Rate 12/17 104 98.2 88 16 130/76 12/17 010 98.2 88 16 130/76 94 Nasal 4.0L Cannula 12/16 2308 Nasal 3.0L Cannula 12/16 2306 98.1 92 18 120/76 92 Nasal 3.0L Cannula 12/16 2229 77 16 116/70 91 Room Air 12/16 2153 97.6 76 18 109/64 91 Room Air Intake & Output 12/17 0800 12/17 0000 12/16 1600 Intake Total 1000 0 Output Total 0 Balance 1000 0 Intake, IV 1000 Intake, Oral 0 Output, Urine 0 Patient 165.561 kg Weight Physical Exam General Appearance: well developed/nourished, alert, awake, anxious, moderate distress Head: atraumatic, normal appearance Eyes: Bilateral: normal appearance, PERRL, EOMI. Ears, Nose, Throat: normal pharynx Neck: normal inspection Respiratory: normal breath sounds, chest non-tender, no respiratory distress, lungs clear Cardiovascular: edema, normal peripheral pulses Peripheral Pulses: 2+ radial (R), 2+ radial (L) Gastrointestinal: soft, banding present in the middle of the abdomen after reduction in ER. Extremities: normal range of motion, pedal edema Neurologic/Psych: no motor/sensory deficits, awake, alert, oriented x 3, normal mood/affect Cranial Nerves: normal hearing, normal speech, PERRL Skin: intact, normal color, warm/dry Last 24 Hrs of Labs/Timothy: Laboratory Tests 12/17/17 0238: APTT Cancelled 12/17/17 0135: Urine Color YEL, Urine Clarity HAZY H, Urine pH 6.5, Ur Specific [place] 1.010, Urine Protein 30 H, Urine Ketones NEG, Urine Nitrite NEG, Urine Bilirubin NEG, Urine Urobilinogen 4.0 H, Ur Leukocyte Esterase NEG, Ur Microscopic SEDIMENT EXAMINED, Urine RBC RARE, Urine WBC RARE, Ur Epithelial Cells RARE, Urine Bacteria RARE H, Urine Mucus RARE, Urine Hemoglobin NEG, Urine Glucose NEG 12/17/17 0115: Lactic Acid 1.9 12/16/17 2215: Anion Gap 17 H, Estimated GFR > 60, BUN/Creatinine Ratio 25.7 H, Glucose 111 H, Lactic Acid 3.6 H, Calcium 9.2, Total Bilirubin 0.8, AST 24, ALT 29, Alkaline Phosphatase 79, Troponin I < 0.01, Total Protein 7.1, Albumin 4.3, Globulin 2.8, Albumin/Globulin Ratio 1.5, Lipase 45, PT Pending, INR Pending, APTT Pending, CBC w Diff NO MAN DIFF REQ, RBC 5.24, MCV 99.2 H, MCH 32.8 H, MCHC 33.1, RDW 14.0, MPV 7.3 L, Gran % 72.9, Lymphocytes % 15.5 L, Monocytes % 10.4 H, Eosinophils % 0.8, Basophils % 0.4, Absolute Granulocytes 8.0 H, Absolute Lymphocytes 1.7, Absolute Monocytes 1.1 H, Absolute Eosinophils 0.1, Absolute Basophils 0, Serum Alcohol 102.0 Diagnostic Data EKG Results A.fib with HR 75, Left axis deviation with interventricular conduction delay CXR Results Pending Assessment/Plan Assessment/Plan Patient is a 62 YO M acitve smoker with heavy alcohol consumption had PMH significant for HTN, Diabetes, A.fib on pradaxa, Psoriatic arthritis on celebrex /fentanyl patch, JERRELL noncompliant with CPAP presented to [facility] with incarcirated umbilical hernia. Medical team consulted for preoperative risk stratification. VS at admission are afebrile, HR 75, BP 109/64mmHg, 91% on room air. Physical exam did show irregular heart beat with pedal edema, abdominal banding (manual reduction in ER). Labs did show polycythemia with macrocytosis ( H&H 17/52, 99MCV), Na 135, K 3.2, Cl 84, HCo3 34, AG 17, Lactic acid 3.6-->1.9, Trop <0.01, BUN/Cr 25.7/0.7. Normal LFT's, serum alchol level of 102. Coags - PT 13, PTT 48, INR 1.26. Imaging consistent with incarcirated umbilical hernia on abdominal CT. Admitted to general medicine floor under surgical service Plan Preoperative evaluation Patient is in good functional status. Patient meets 4-10 metabolic equivalents. No chest pain, shortness of breath, oxygen requirement at baseline. He is not on insulin at baseline, no history of CVA, [place], CHF, normal renal function. He had a stress test/ECHO on may 2016 which were unremarkable. RCRI score - 1 ( high risk procedure) with 0.9% chance of adverse cardiac events. Patient had previous hernia surgeries complicated with inadequate anesthesia. No history of bleeding in the past. He is mild to moderate risk for surgery. * Would proceed with the surgery if urgent * Recommend obtaining a formal cardiology consult if surgery is not an emergency (follows ) * Start Heparin for A.fib CHADSVaSC - 2 * CXR prior to surgery * Hold lisinopril, HCTZ, furosemide, pradaxa prior to surgery A.fib Asymptomatic. Underwent cardioversion twice and reverted back. Patient is on cardizem 180mg daily and pradaxa. EKG shows A.fib with left axis deviation HR 75 , rate controlled. * continue cardizem * Hold pradaxa and start IV heparin * Stop heparin 3 hrs prior to surgery * Maintain K>4, Mag>2. * Cardiology consult Alcohol withdrawl Patient consumes 4 beers/day and at risk for withdrawl. Serum alcohol level of 102. * Diagnostic CIWA * Ativan per CIWA * Thiamine/folat/multivitamin COPD Patient follows . Not on home oxygen lately. * TRC/Nebs * CXR * Spirometry after sugery * Smoking cessation counselling/nicotine patches Diabetes Patienti was on oral hypoglycemics (metformin 500mg bid). * Insulin during this stay recommended * NPO sliding scale for now. * Accuchecks HTN Hold HCTZ, Lisinopril prior to surgery Venous insufficiency Patient was on furosemide 40mg daily for leg edema. * Hold furosemide prior to surgery DVT prophylaxis IV heparin Please call back with any questions. Problem List: 1. COPD (chronic obstructive pulmonary disease) 2. Incarcerated umbilical hernia 3. Chronic atrial fibrillation 4. ETOHism 5. Sleep apnea Copies To: Malick Lynch DO Consult Acknowledgment - Thank you for your consult request. Remigio Brooks 12/17/17 0426: Assessment/Plan Consult Acknowledgment - Thank you for your consult request. Attending MD Review Statement Attending Statement Attending MD Statement: examined this patient, discuss w/resident/PA/BLEACH BOILER PULLER, agreed w/resident/PA/BLEACH BOILER PULLER, discussed with family, reviewed EMR data (avail), reviewed images, amended to note Attending Assessment/Plan: # Preop evaluation: Low risk for adverse outcome for noncardiac surgery, 0.9% risk of cardiac complication according to the revised cardiac risk index scoring. Given the condition, surgery may be need emergent. We Would suggest consult cardiology given that he is known to Dr. Perez for his A. fib # A. fib: Rate controlled, currently on Pradaxa - Continue extended release diltiazem - Hold the Pradaxa, continue IV heparin - Discontinue heparin prior to surgery - Cardiology consult # HTN - Hold lisinopril, HCTZ in view avoid any kidney injury or hypotension # DM - DC metformin - Continue low-dose sliding scale insulin for nothing by mouth - Change fluids to D5 half normal saline # COPD - Current smoker - Continue nicotine patch - Incentive spirometry after surgery - Continue home Symbicort and albuterol # Daily alcohol use: when necessary Ativan according to CIWA score, nutritional supplement # History of venous insufficiency and chronic leg edema - Previous 2-D echocardiogram in 2016, patient does not carry diagnosis of congestive heart failure - Hold Lasix for now, in view avoid kidney injury and hypotension # Pain management: According to primary team # Continue allopurinol, atorvastatin Replete electrolytes Trend lactate Appreciate consult, we will follow along. Personally spoke to surgical PA about the saturations.
[2017-12-17 03:10] LABS: PT 13.8 SEC (9.4-12.5); PTT 48 SEC (25-37)
[2017-12-17] MEDS ORDERED: SYMBICORT 16010.2 GM INH (07:38)
[2017-12-17] MEDS ORDERED: FUROSEMIDE40 M1 PO (07:40)
[2017-12-17] MEDS ORDERED: VITAMIN B-12250 MCG PO (07:42)
[2017-12-17 08:55] LABS: ABSOLUTE BASOPHIL COUNT 0 /CUMM (0.0-0.2); ABSOLUTE EOSINOPHIL COUNT 0 /CUMM (0.0-0.7); ABSOLUTE LYMPH COUNT 1.4 /CUMM (1.2-3.4); ABSOLUTE MONOCYTE COUNT 0.9 /CUMM (0.10-0.60)
[2017-12-17 08:57] LABS: PTT 42 SEC (25-37)
[2017-12-17 09:06] LABS: ABSOLUTE GRANULOCYTE CT 7.1 /CUMM (1.4-6.5); BASOPHIL % 0.1 % (0.0-2.0); EOSINOPHIL % 0.4 % (0-5); MEAN CORPUSCULAR HGB 32.6 PG (27.0-31.0); MEAN CORPUSCULAR HGB CONC 32.9 G/DL (33.0-37.0); MEAN CORPUSCULAR VOLUME 98.9 FL (80.0-94.0); MEAN PLATELET VOLUME 7.9 FL (7.4-10.4); PLATELET COUNT 212 /CUMM (130-400); RBC DISTRIBUTION WIDTH 14.4 % (11.5-14.5); RED BLOOD CELL CT 4.74 /CUMM (4.70-6.10); WHITE BLOOD CELL COUNT 9.5 /CUMM (4.8-10.8)
[2017-12-17 09:09] LABS: HEMATOCRIT 46.9 % (42-52)
--- NOTE | 2017-12-17 10:51 | PN- Medicine Consult ---
James Singh 12/17/17 1051: Assessment/PlanMedical Consult Assessment/Plan Assessment: Patient is a 62 YO M acitve smoker with heavy alcohol consumption had PMH significant for HTN, Diabetes, A.fib on pradaxa, Psoriatic arthritis on celebrex /fentanyl patch, JERRELL noncompliant with CPAP admitted to the surgical service for incarcirated umbilical hernia. Medical team consulted for help with medical managment. Problem list: # Preop evaluation for incarcerated abdominal hernia. #A.fib on pradaxa #HTN,DM, COPD #Chronic pain #Chronic benzo use #ETOH use Plan: Recommendations: * How long to hold pradaxa per surgery/cardio recs * Resumed cardizem at home dose of 180 daily * Resumed lisinopril 20 qd, would not start HCTZ at this point * Resume inhalers at home dose for COPD * IV fluids as per surgery * DVT ppx at all times Problem List: 1. Incarcerated umbilical hernia Subjective Subjective: The patient was seen and examined. Was able to pass gas this morning. Does not have any abdominal pain after receivinig pain medications. Denies any headache, dizziness, lightheadedness, nausea, vomiting, chest pain, shortness of breath, urinary symptoms. Objective Last 24 Hrs of Vital Signs/I&O Vital Signs Date Time Temp Pulse Resp B/P B/P Pulse O2 O2 Flow FiO2 Mean Ox Delivery Rate 12/17 1423 Nasal 4.0L Cannula 12/17 1422 97.3 99 20 150/90 91 12/17 1110 Nasal 4.0L Cannula 12/17 1103 98.3 95 20 140/80 91 12/17 1000 98.3 95 20 140/80 12/17 0800 Nasal 4.0L Cannula 12/17 0800 98.3 95 20 140/80 12/17 0620 98.4 91 20 156/90 95 Nasal 4.0L Cannula 12/17 0600 98.4 91 20 156/90 12/17 0400 92 Nasal 4.0L Cannula 12/17 0353 98.5 96 20 156/98 92 Nasal 4.0L Cannula 12/17 0305 97.9 98 20 144/75 12/17 0305 97.9 98 20 144/75 90 12/17 0105 98.2 88 16 130/76 12/17 0105 98.2 88 16 130/76 94 Nasal 4.0L Cannula 12/16 2308 Nasal 3.0L Cannula 12/16 2305 98.1 92 18 120/76 92 Nasal 3.0L Cannula 12/16 2229 77 16 116/70 91 Room Air 12/16 2153 97.6 76 18 109/64 91 Room Air Intake & Output 12/17 1600 12/17 0800 12/17 0000 Intake Total 1498 0 Output Total 200 0 Balance 1298 0 Intake, IV 1378 Intake, Oral 120 0 Output, Urine 200 0 Patient 343 lb 365 lb Weight Weight Bed scale Measurement Method Physical Exam General Appearance: alert, awake, comfortable Head: atraumatic Neck: normal inspection, supple Cardiovascular: irregularly irregular Respiratory: normal breath sounds, chest non-tender, no respiratory distress Abdomen: soft, abdominal umbilical hernia bulging Current Medications: Current Medications Sig/Pablo Start time Last Medication Dose Route Stop Time Status Admin Acetaminophen 0 .STK-MED ONE 12/17 206 DC IV Acetaminophen 1,000 MG Q6H 12/17 020 AC 12/17 N/A 1 UNIT IV 12/17 2013 1433 Albuterol Sulfate 3 ML Q4P PRN 12/17 1130 AC INH Albuterol Sulfate 2 PUF Q4 12/17 020 DC INH Albuterol Sulfate 2 PUF Q4-6 PRN PRN 12/17 0130 CAN INH Albuterol Sulfate 2 PUF Q4P PRN 12/17 0130 AC INH Allopurinol 300 MG DAILY 12/17 899 AC 12/17 PO 1023 Amlodipine Besylate 10 MG DAILY 12/17 899 CAN PO Atorvastatin Calcium 10 MG 1700 12/17 1700 AC PO Budesonide/ 2 PUF BID 12/17 0147 AC 12/17 Formoterol Fumarate INH 1022 Cyanocobalamin 250 MCG DAILY 12/17 1434 UNVr PO Dextrose 50 GM PER PROTOCL PRN 12/17 0145 DC IV 12/17 0350 Diltiazem HCl 360 MG DAILY 12/17 899 CAN PO Diltiazem HCl 180 MG DAILY 12/17 899 AC 12/17 PO 1024 Docusate Sodium 100 MG DAILY 12/17 899 AC 12/17 PO 1024 Fentanyl Citrate 100 MCG Q72 12/17 899 AC 12/17 TOP 1022 Folic Acid 1 MG DAILY 12/17 899 AC 12/17 PO 1024 Furosemide 40 MG DAILY 12/17 0900 CAN PO Heparin Sodium 11,670 UNIT ONCE ONE 12/17 1150 DC 12/17 (Porcine) IV 12/17 1151 1257 Heparin Sodium/ 25,000 UNIT Q24H 12/17 0245 AC 12/17 Dextrose IV 1115 Dextrose/Water 500 ML Hydrochlorothiazide 25 MG DAILY 12/17 0900 CAN PO Insulin Aspart 0 AC 12/17 0700 CAN SC Insulin Human Regular 0 Q6 12/17 0245 AC 12/17 SC 1258 Ketorolac 0 .STK-MED ONE 12/16 2239 DC Tromethamine .ROUTE Ketorolac 15 MG ONCE ONE 12/16 2215 DC 12/16 Tromethamine IV 12/16 221 2238 Lisinopril 20 MG DAILY 12/17 1436 UNVr PO Lisinopril 20 MG DAILY 12/17 0900 CAN PO Lorazepam 0 .STK-MED ONE 12/17 0329 DC .ROUTE Lorazepam 0.5 MG Q4P PRN 12/17 0245 AC 12/17 IV 1430 Magnesium Sulfate 1 GM ONCE ONE 12/17 1200 AC 12/17 Dextrose/Water 100 ML IV 12/17 1559 1257 Morphine Sulfate 2 MG Q4P PRN 12/17 0200 AC IV Morphine Sulfate 0 .STK-MED ONE 12/17 0001 DC .ROUTE Morphine Sulfate 6 MG ONCE ONE 12/16 2315 DC 12/17 IV 12/16 2316 0030 Morphine Sulfate 0 .STK-MED ONE 12/16 2240 DC .ROUTE Morphine Sulfate 2 MG ONCE ONE 12/16 2215 DC 12/16 IV 12/16 221 2238 Multivitamins 1 TAB DAILY 12/17 0900 AC 12/17 PO 1024 Nicotine 14 MG Q24 12/17 0900 AC 12/17 TOP 1021 Ondansetron HCl 4 MG Q8P PRN 12/17 0130 AC IV Oxycodone HCl 20 MG 4 TIMES/DAY PRN 12/17 0200 AC 12/17 PO 1023 Patient Medication 1 ED ONE ONE 12/17 1030 DC Teaching ED 12/17 1031 Potassium Chloride 20 MEQ CONTINOUS INFUSION 12/17 1130 CAN IV Potassium Chloride 20 MEQ Q13H 12/17 1130 AC 12/17 Dextrose/Sodium 1,000 ML IV 1258 Chloride Potassium Chloride 10 MEQ DAILY 12/17 0900 AC 12/17 PO 1024 Sodium Chloride 1,000 ML .Q10H 12/17 0130 DC 12/17 IV 0456 Sodium Chloride 1,000 ML BOLUS ONE 12/165 DC 12/16 IV 12/16 2314 2225 Thiamine HCl 100 MG DAILY 12/17 0900 AC 12/17 PO 1024 Results Last 24 Hrs Lab/Timothy Results: Laboratory Tests 12/17/17 1000: APTT 41 H 12/17/17 0705: Anion Gap 8, Estimated GFR > 60, BUN/Creatinine Ratio 25.0, Magnesium 1.7, APTT 42 H, CBC w Diff NO MAN DIFF REQ, RBC 4.74, MCV 98.9 H, MCH 32.6 H, MCHC 32.9 L, RDW 14.4, MPV 7.9, Gran % 75.0, Lymphocytes % 15.2 L, Monocytes % 9.3, Eosinophils % 0.4, Basophils % 0.1, Absolute Granulocytes 7.1 H, Absolute Lymphocytes 1.4, Absolute Monocytes 0.9 H, Absolute Eosinophils 0, Absolute Basophils 0 12/17/17 0238: APTT Cancelled 12/17/17 0135: Urine Color YEL, Urine Clarity HAZY H, Urine pH 6.5, Ur Specific [place] 1.010, Urine Protein 30 H, Urine Ketones NEG, Urine Nitrite NEG, Urine Bilirubin NEG, Urine Urobilinogen 4.0 H, Ur Leukocyte Esterase NEG, Ur Microscopic SEDIMENT EXAMINED, Urine RBC RARE, Urine WBC RARE, Ur Epithelial Cells RARE, Urine Bacteria RARE H, Urine Mucus RARE, Urine Hemoglobin NEG, Urine Glucose NEG 12/17/17 0115: Lactic Acid 1.9 12/16/17 2215: Anion Gap 17 H, Estimated GFR > 60, BUN/Creatinine Ratio 25.7 H, Glucose 111 H, Lactic Acid 3.6 H, Calcium 9.2, Magnesium 1.8, Total Bilirubin 0.8, AST 24, ALT 29, Alkaline Phosphatase 79, Troponin I < 0.01, Total Protein 7.1, Albumin 4.3, Globulin 2.8, Albumin/Globulin Ratio 1.5, Lipase 45, PT 13.8 H, INR 1.26 H, APTT 48 H, CBC w Diff NO MAN DIFF REQ, RBC 5.24, MCV 99.2 H, MCH 32.8 H, MCHC 33.1, RDW 14.0, MPV 7.3 L, Gran % 72.9, Lymphocytes % 15.5 L, Monocytes % 10.4 H, Eosinophils % 0.8, Basophils % 0.4, Absolute Granulocytes 8.0 H, Absolute Lymphocytes 1.7, Absolute Monocytes 1.1 H, Absolute Eosinophils 0.1, Absolute Basophils 0, Serum Alcohol 102.0 Vick Callejas MD 12/17/17 1012: Attending MD Review Statement Attending Sign Off Attending Cosign Statement: I have: examined this patient, reviewed [employer] EMR data, discussd w/resident/PA/ EP TECH, discussed mgmt plan w/darwin, discussed mgmt plan w/pt, agreed w/resident/PA/EP TECH , amended to note. Other Findings: The patient was seen and discussed with house staff. Appreciate Cardiology input. Plan is to defer surgery at present awaiting Pradaxa to wear off (?2-3 d) . As per Dr. Mosley will not reverse Pradaxa. Note patient is on Xanax at home 0.5 mg bid (he receives 60 pills each month, however states he only takes prn) and he has chronic pain on Fentanyl Patch and oxycodone. Abdominal pain is improved at present as hernia has been reduced. OK to give meds with sip of water (Cardizem). Will follow with surgery.
--- NOTE | 2017-12-17 10:55 | RADIOLOGY REPORT ---
EXAMINATION: XR PORTABLE CHEST CLINICAL INFORMATION: History of COPD. Preoperative evaluation. COMPARISON: Chest done on 10/25/2016. TECHNIQUE: Portable 75 degrees frontal view of the chest was obtained. FINDINGS: The evaluation is technically limited due to positioning and portable nature. The left lung base is not optimally evaluated. The cardiomediastinal silhouette is at least moderately enlarged. There is mild pulmonary venous prominence noted at both upper lobes, likely represent mild CHF. There is trace amount of fluid noted within the right minor fissure. There is no right-sided pleural effusion present. Presence or absence of small left-sided pleural effusion cannot be evaluated on this radiograph. IMPRESSION: 1. Technically limited study. Dedicated frontal, lateral view of the chest may be considered for further full detail evaluation, if clinically appropriate. 2. On these limited images, there is suggestion of at least moderate enlargement of the cardiomediastinal silhouette, mild pulmonary venous congestion, and a trace amount of effusion within the right minor fissure.
[2017-12-17 11:20] LABS: PTT 41 SEC (25-37)
--- NOTE | 2017-12-17 12:25 | Cons- Cardiology ---
General Information and HPI Consulting Request Date of Consult: 12/17/17 Requested By: Malick Lynch DO Reason for Consult: Atrial fibrillation, preoperative evaluation for hernia repair Source of Information: patient, old records Exam Limitations: no limitations History of Present Illness: The patient is a 62-year-old gentleman with a past medical history of persistent atrial fibrillation (anticoagulated with Pradaxa), diabetes mellitus, hypertension and obstructive sleep apnea. He presented to our hospital with symptoms of abdominal pain, and was found to have a periumbilical hernia, and will require surgical correction for the same. The patient presented with an incarcerated periumbilical hernia; however, was able to be reduced in the emergency room. From a cardiac standpoint, the patient is overall doing well. He is moderately active, and describes being able to perform approximately 4-6 minutes of physical activity on a regular basis, limited by his psoriatic arthritis. He has been tolerant of and compliant with his medication regimen including Pradaxa. The last dose was taken on the afternoon of December 16, 2017. There have been no bleeding issues. A recent outpatient echocardiogram was performed in February 2017 which demonstrated preserved LV systolic function Allergies/Medications Allergies: Coded Allergies: NO KNOWN ALLERGIES (10/26/16) Home Med List: Albuterol Sulfate (Ventolin Hfa) 90 MCG HFA.AER.AD 2 PUF INH Q4-6 PRN PRN WHEEZE/COUGH Allopurinol 300 MG TABLET 1 TAB PO DAILY GOUT (Reported) Alprazolam (Xanax) 0.5 MG TABLET 1 TAB PO BIDP PRN ANXIETY (Reported) Budesonide/Formoterol Fumarate (Symbicort 160-4.5 Mcg Inhaler) 160 MCG-4.5 MCG/ ACTUATION HFA.AER.AD 2 PUF INH BID COPD (Reported) Cyanocobalamin (Vitamin B-12) (Vitamin B-12) 250 MCG TABLET 1 TAB PO DAILY VITAMIN SUPPORT (Reported) Fentanyl Citrate (Duragesic) 75 MCG/HOUR PATCH.TD72 1 PAT TOP Q48 PAIN ( Reported) Furosemide 20 MG TABLET 1 TAB PO DAILY LEG SWELLING (Reported) Levofloxacin (Levaquin) 500 MG TABLET 1 TAB PO DAILY BRONCHITIS Lisinopril/Hydrochlorothiazide (Lisinopril-Hctz 20-25 MG Tab) 20 MG-25 MG TABLET 1 TAB PO DAILY HTN (Reported) Oxycodone HCl 30 MG TABLET 1 TAB PO Q4 PAIN (Reported) Current Medications: Current Medications Sig/Pablo Start time Last Medication Dose Route Stop Time Status Admin Acetaminophen 0 .STK-MED ONE 12/17 206 DC IV Acetaminophen 1,000 MG Q6H 12/17 0200 AC 12/17 N/A 1 UNIT IV 12/17 2013 1025 Albuterol Sulfate 3 ML Q4P PRN 12/17 1130 AC INH Albuterol Sulfate 2 PUF Q4 12/17 0200 DC INH Albuterol Sulfate 2 PUF Q4-6 PRN PRN 12/17 0130 CAN INH Albuterol Sulfate 2 PUF Q4P PRN 12/17 0130 AC INH Allopurinol 300 MG DAILY 12/17 09 AC 12/17 PO 1023 Amlodipine Besylate 10 MG DAILY 12/17 0900 CAN PO Atorvastatin Calcium 10 MG 1700 12/17 1700 AC PO Budesonide/ 2 PUF BID 12/17 0147 AC 12/17 Formoterol Fumarate INH 1022 Dextrose 50 GM PER PROTOCL PRN 12/17 0145 DC IV 12/17 0350 Diltiazem HCl 360 MG DAILY 12/17 0900 CAN PO Diltiazem HCl 180 MG DAILY 12/17 0900 AC 12/17 PO 1024 Docusate Sodium 100 MG DAILY 12/17 09 AC 12/17 PO 1024 Fentanyl Citrate 100 MCG Q72 12/17 09 AC 12/17 TOP 1022 Folic Acid 1 MG DAILY 12/17 0900 AC 12/17 PO 1024 Furosemide 40 MG DAILY 12/17 0900 CAN PO Heparin Sodium/ 25,000 UNIT Q24H 12/17 0245 AC 12/17 Dextrose IV 0327 Dextrose/Water 500 ML Hydrochlorothiazide 25 MG DAILY 12/17 0900 CAN PO Insulin Aspart 0 AC 12/17 0700 CAN SC Insulin Human Regular 0 Q6 12/17 0245 AC SC Ketorolac 0 .STK-MED ONE 12/16 2238 DC Tromethamine .ROUTE Ketorolac 15 MG ONCE ONE 12/16 2214 DC 12/16 Tromethamine IV 12/16 Lisinopril 20 MG DAILY 12/17 09 CAN PO Lorazepam 0 .STK-MED ONE 12/17 328 DC .ROUTE Lorazepam 0.5 MG Q4P PRN 12/17 024 AC 12/17 IV 0325 Magnesium Sulfate 1 GM ONCE ONE 12/17 1200 AC Dextrose/Water 100 ML IV 12/17 1559 Morphine Sulfate 2 MG Q4P PRN 12/17 0200 AC IV Morphine Sulfate 0 .STK-MED ONE 12/17 0001 DC .ROUTE Morphine Sulfate 6 MG ONCE ONE 12/16 2315 DC 12/17 IV 12/16 2316 0030 Morphine Sulfate 0 .STK-MED ONE 12/16 2240 DC .ROUTE Morphine Sulfate 2 MG ONCE ONE 12/16 2215 DC 12/16 IV 12/16 2216 2238 Multivitamins 1 TAB DAILY 12/17 09 AC 12/17 PO 1024 Nicotine 14 MG Q24 12/17 09 AC 12/17 TOP 1021 Ondansetron HCl 4 MG Q8P PRN 12/17 0130 AC IV Oxycodone HCl 20 MG 4 TIMES/DAY PRN 12/17 0200 AC 12/17 PO 1023 Patient Medication 1 ED ONE ONE 12/17 1030 DC Teaching ED 12/17 1031 Potassium Chloride 20 MEQ CONTINOUS INFUSION 12/17 1130 CAN IV Potassium Chloride 20 MEQ Q13H 12/17 1130 AC Dextrose/Sodium 1,000 ML IV Chloride Potassium Chloride 10 MEQ DAILY 12/17 09 AC 12/17 PO 1024 Sodium Chloride 1,000 ML .Q10H 12/17 0130 DC 12/17 IV 0456 Sodium Chloride 1,000 ML BOLUS ONE 12/16 2214 DC 12/16 IV 12/16 2314 2225 Thiamine HCl 100 MG DAILY 12/17 09 AC 12/17 PO 1024 Review of Systems Review of Systems: The review of systems is negative for chest pains, palpitations nor lightheadedness. The remainder of the 14 point review of systems is noncontributory with the exception of above. Past History Travel History Traveled to [place] past 21 day No Medical History Blood Transfusion Hx: No Neurological: NONE EENT: NONE Cardiovascular: AFIB, hypertension Respiratory: COPD Gastrointestinal: NONE Hepatic: NONE Renal: NONE Musculoskeletal: ARTHRITIS Psychiatric: NONE Endocrine: diabetes Blood Disorders: NONE Cancer(s): NONE UPTWIST SPINNER/Reproductive: NONE Surgical History Surgical History: non-contributory Family History Relations & Conditions If Any: FATHER Relation not specified for: FH: COPD (chronic obstructive pulmonary disease) FH: diabetes mellitus FH: esophageal cancer FH: Rosibel Gehrig's disease Psychosocial History Where Do You Live? Home Who Do You Live With? spouse Services at Home: None Smoking Status: Current Everyday Smoker ETOH Use: heavy use Illicit Drug Use: denies illicit drug use Functional Ability ADLs Independent: dressing, eating, toileting, bathing. Ambulation: independent IADLs Independent: shopping, housework, finances, food prep, telephone, transportation , medication admin. Exam & Diagnostic Data Vital Signs and I&O Vital Signs Date Time Temp Pulse Resp B/P B/P Pulse O2 O2 Flow FiO2 Mean Ox Delivery Rate 12/17 1110 Nasal 4.0L Cannula 12/17 1103 98.3 95 20 140/80 91 12/17 0800 Nasal 4.0L Cannula 12/17 0800 98.3 95 20 140/80 12/17 0620 98.4 91 20 156/90 95 Nasal 4.0L Cannula 12/17 0600 98.4 91 20 156/90 12/17 0400 92 Nasal 4.0L Cannula 12/17 0353 98.5 96 20 156/98 92 Nasal 4.0L Cannula 12/17 0305 97.9 98 20 144/75 12/17 0305 97.9 98 20 144/75 90 12/17 0105 98.2 88 16 130/76 12/17 0105 98.2 88 16 130/76 94 Nasal 4.0L Cannula 12/16 2308 Nasal 3.0L Cannula 12/16 2306 98.1 92 18 120/76 92 Nasal 3.0L Cannula 12/16 2229 77 16 116/70 91 Room Air 12/16 2153 97.6 76 18 109/64 91 Room Air Intake & Output 12/17 1600 12/17 0800 12/17 0000 12/16 1600 12/16 0800 12/16 0000 Intake Total 1498 0 Output Total 200 0 Balance 1298 0 Intake, IV 1378 Intake, Oral 120 0 Output, Urine 200 0 Patient 343 lb 365 lb Weight Weight Bed scale Measurement Method Physical Exam: General: Nontoxic, no apparent distress. HEENT: Sclera and conjunctiva within normal limits, without xanthelasmas. Neck: Carotids 2+ without bruits. Respiratory: Clear to auscultation, air movement is good, without accessory respiratory muscle use. Heart: Irregularly irregular rate and rhythm, without murmurs, without JVD. Abdomen: Soft, nontender, no masses, normoactive bowel sounds. Extremities: Without clubbing, cyanosis, without edema. Neuro: Nonfocal exam, strength, 5 out of 5 Skin: Within normal limits without lesions. Psych: Mood and affect: Normal Labs/Timothy Results: Laboratory Tests 12/17 12/17 12/17 1000 0705 0238 Chemistry Sodium (137 - 145 mmol/L) 133 L Potassium (3.5 - 5.1 mmol/L) 3.5 Chloride (98 - 107 mmol/L) 88 L Carbon Dioxide (22 - 30 mmol/L) 37 H Anion Gap (5 - 16) 8 BUN (9 - 20 mg/dL) 15 Creatinine (0.7 - 1.2 mg/dL) 0.6 L Estimated GFR (>60 ml/min) > 60 BUN/Creatinine Ratio (7 - 25 %) 25.0 Magnesium (1.6 - 2.3 mg/dL) 1.7 Coagulation APTT (25 - 37 SEC) 41 H 42 H Cancelled Hematology CBC w Diff NO MAN DIFF REQ WBC (4.8 - 10.8 /CUMM) 9.5 RBC (4.70 - 6.10 /CUMM) 4.74 Hgb (14.0 - 18.0 G/DL) 15.4 Hct (42 - 52 %) 46.9 MCV (80.0 - 94.0 FL) 98.9 H MCH (27.0 - 31.0 PG) 32.6 H MCHC (33.0 - 37.0 G/DL) 32.9 L RDW (11.5 - 14.5 %) 14.4 Plt Count (130 - 400 /CUMM) 212 MPV (7.4 - 10.4 FL) 7.9 Gran % (42.2 - 75.2 %) 75.0 Lymphocytes % (20.5 - 51.1 %) 15.2 L Monocytes % (1.7 - 9.3 %) 9.3 Eosinophils % (0 - 5 %) 0.4 Basophils % (0.0 - 2.0 %) 0.1 Absolute Granulocytes (1.4 - 6.5 /CUMM) 7.1 H Absolute Lymphocytes (1.2 - 3.4 /CUMM) 1.4 Absolute Monocytes (0.10 - 0.60 /CUMM) 0.9 H Absolute Eosinophils (0.0 - 0.7 /CUMM) 0 Absolute Basophils (0.0 - 0.2 /CUMM) 0 12/17 12/17 0135 0115 Chemistry Lactic Acid (0.7 - 2.1 mmol/L) 1.9 Urines Urine Color (YEL,AMB,STR) YEL Urine Clarity (CLEAR) HAZY H Urine pH (5.0 - 8.0) 6.5 Ur Specific [place] (1.001 - 1.035) 1.010 Urine Protein (NEG,<30 MG/DL) 30 H Urine Ketones (NEG) NEG Urine Nitrite (NEG) NEG Urine Bilirubin (NEG) NEG Urine Urobilinogen (0.1 - 1.0 EU/dl) 4.0 H Ur Leukocyte Esterase (NEG) NEG Ur Microscopic SEDIMENT EXAMINED Urine RBC (0 - 5 /HPF) RARE Urine WBC (0 - 2 /HPF) RARE Ur Epithelial Cells (NONE,FEW) RARE Urine Bacteria (NEG/NONE) RARE H Urine Mucus (FEW,NONE) RARE Urine Hemoglobin (NEG) NEG Urine Glucose (N MG/DL) NEG 12/16 2215 Chemistry Sodium (137 - 145 mmol/L) 135 L Potassium (3.5 - 5.1 mmol/L) 3.2 L Chloride (98 - 107 mmol/L) 84 L Carbon Dioxide (22 - 30 mmol/L) 34 H Anion Gap (5 - 16) 17 H BUN (9 - 20 mg/dL) 18 Creatinine (0.7 - 1.2 mg/dL) 0.7 Estimated GFR (>60 ml/min) > 60 BUN/Creatinine Ratio (7 - 25 %) 25.7 H Glucose (65 - 99 mg/dL) 111 H Lactic Acid (0.7 - 2.1 mmol/L) 3.6 H Calcium (8.4 - 10.2 mg/dL) 9.2 Magnesium (1.6 - 2.3 mg/dL) 1.8 Total Bilirubin (0.2 - 1.3 mg/dL) 0.8 AST (17 - 59 U/L) 24 ALT (21 - 72 U/L) 29 Alkaline Phosphatase (< 127 U/L) 79 Troponin I (<0.11 ng/ml) < 0.01 Total Protein (6.3 - 8.2 g/dL) 7.1 Albumin (3.5 - 5.0 g/dL) 4.3 Globulin (1.9 - 4.2 gm/dL) 2.8 Albumin/Globulin Ratio (1.1 - 2.2 %) 1.5 Lipase (23 - 300 U/L) 45 Coagulation PT (9.4 - 12.5 SEC) 13.8 H INR (0.90 - 1.17) 1.26 H APTT (25 - 37 SEC) 48 H Hematology CBC w Diff NO MAN DIFF REQ WBC (4.8 - 10.8 /CUMM) 10.9 H RBC (4.70 - 6.10 /CUMM) 5.24 Hgb (14.0 - 18.0 G/DL) 17.2 Hct (42 - 52 %) 52.0 MCV (80.0 - 94.0 FL) 99.2 H MCH (27.0 - 31.0 PG) 32.8 H MCHC (33.0 - 37.0 G/DL) 33.1 RDW (11.5 - 14.5 %) 14.0 Plt Count (130 - 400 /CUMM) 231 MPV (7.4 - 10.4 FL) 7.3 L Gran % (42.2 - 75.2 %) 72.9 Lymphocytes % (20.5 - 51.1 %) 15.5 L Monocytes % (1.7 - 9.3 %) 10.4 H Eosinophils % (0 - 5 %) 0.8 Basophils % (0.0 - 2.0 %) 0.4 Absolute Granulocytes (1.4 - 6.5 /CUMM) 8.0 H Absolute Lymphocytes (1.2 - 3.4 /CUMM) 1.7 Absolute Monocytes (0.10 - 0.60 /CUMM) 1.1 H Absolute Eosinophils (0.0 - 0.7 /CUMM) 0.1 Absolute Basophils (0.0 - 0.2 /CUMM) 0 Toxicology Serum Alcohol (<10 MG/DL) 102.0 Assessment/Plan Assessment/Plan 62-year-old gentleman with a past medical history of persistent atrial fibrillation (anticoagulated with Pradaxa), diabetes mellitus, hypertension and obstructive sleep apnea. He presented to our hospital with symptoms of abdominal pain, and was found to have a periumbilical hernia, and will require surgical correction for the same. Periumbilical hernia: The patient will require surgical correction for the same. From a cardiac standpoint, given his ability to perform 4-6 metastases of physical activity as well as his cardiac history and known LV function (normal), he may proceed with the upcoming surgery without the need for further preoperative cardiac testing. His overall risk for perioperative ischemic events is not significantly elevated above his baseline risk factors. His overall risk for perioperative congestive heart failure events is not significantly elevated. The timing for his surgery however will need to be based on his last dose of Pradaxa. As the surgery is not emergent, I would not reverse his Pradaxa rather , delay the surgery until 12-18-2017. He will need to restart anticoagulation after the procedure; however, does not require perioperative bridging with heparin. Atrial fibrillation: Heart rate controlled, the patient will require anticoagulation postprocedure as above. Hypertension: The patient has suboptimally controlled hypertension with overall improved results in the outpatient setting. We will continue his current medication regimen and make further adjustments after discharge as an outpatient. Thank you for allowing us to participate in the care of your patient. Please do not hesitate to contact us further with any questions. Sincerely, Cooper Mosley MD [facility] Consult Acknowledgment - Thank you for your consult request.
[2017-12-17] MEDS ORDERED: CARDIZEM CD180 M1 PO (14:31)
--- NOTE | 2017-12-17 16:07 | PN- General Surgery ---
Surgical Brief Attending Note Brief Attending Note: pt seen for Dr Lynch this afternoon appears stable and not obstructed Hernia reduced with binder in place Cardiology recommended letting Pradaxa wear off until tomorrow before considering repair of hernia Surgery can wait at this point will give clear liquids and NPO after midnight for possible surgery tomorrow
[2017-12-17 17:31] LABS: PTT > 120 SEC (25-37)
[2017-12-18] VITALS (7 sets, daily range): BP systolic 130–150; BP diastolic 70–80
[2017-12-18 08:58] LABS: ABSOLUTE BASOPHIL COUNT 0 /CUMM (0.0-0.2); ABSOLUTE EOSINOPHIL COUNT 0.1 /CUMM (0.0-0.7); ABSOLUTE GRANULOCYTE CT 7.5 /CUMM (1.4-6.5); ABSOLUTE LYMPH COUNT 0.9 /CUMM (1.2-3.4); ABSOLUTE MONOCYTE COUNT 0.8 /CUMM (0.10-0.60); BASOPHIL % 0.5 % (0.0-2.0); EOSINOPHIL % 0.7 % (0-5); GRANULOCYTE % 81.2 % (42.2-75.2); HEMATOCRIT 47.2 % (42-52); MEAN CORPUSCULAR HGB 32.4 PG (27.0-31.0); MEAN CORPUSCULAR HGB CONC 32.4 G/DL (33.0-37.0); MEAN CORPUSCULAR VOLUME 99.9 FL (80.0-94.0); MEAN PLATELET VOLUME 7.8 FL (7.4-10.4); PLATELET COUNT 202 /CUMM (130-400); RED BLOOD CELL CT 4.72 /CUMM (4.70-6.10); WHITE BLOOD CELL COUNT 9.3 /CUMM (4.8-10.8)
[2017-12-18 08:59] LABS: PTT 35 SEC (25-37)
--- NOTE | 2017-12-18 10:53 | PN- Cardiology ---
Subjective Subjective: The patient is awake, alert The events of the last 24 hours were reviewed. Review of Systems: The review of systems is negative for chest pains, palpitations nor lightheadedness. The remainder of the 14 point review of systems is noncontributory with the exception of above. Objective Vital Signs and I&Os Vital Signs Date Time Temp Pulse Resp B/P B/P Pulse O2 O2 Flow FiO2 Mean Ox Delivery Rate 12/18 0942 98.4 75 20 138/70 12/18 0620 98.4 75 20 138/70 92 Nasal Cannula 12/18 0600 98.4 75 20 138/70 12/18 0200 98.0 80 20 130/80 12/18 0200 98.1 85 20 132/78 94 Room Air 12/18 0000 96 Nasal 3.0L Cannula 12/17 2200 97.8 88 22 128/80 12/17 2153 97.8 88 22 128/80 96 Nasal Cannula 12/17 1715 86 154/92 12/17 1600 94 Nasal 4.0L Cannula 12/17 1423 Nasal 4.0L Cannula 12/17 1422 97.3 99 20 150/90 91 12/17 1400 97.3 99 20 150/90 12/17 1110 Nasal 4.0L Cannula 12/17 1103 98.3 95 20 140/80 91 Intake & Output 12/18 1600 12/18 0800 12/18 0000 12/17 1600 12/17 0800 12/17 0000 Intake Total 720 085 860 2351 0 Output Total 850 900 400 200 0 Balance -130 -242 580 6246 0 Intake, IV 600 094 637 8229 Intake, Oral 120 120 50 120 0 Output, Urine 850 900 400 200 0 Patient 346 lb 343 lb 365 lb Weight Weight Bed scale Bed scale Measurement Method Physical Exam: General: Nontoxic, no apparent distress. HEENT: Sclera and conjunctiva within normal limits, without xanthelasmas. Neck: Carotids 2+ without bruits. Respiratory: Clear to auscultation, air movement is good, without accessory respiratory muscle use. Heart: Regular rate and rhythm, without murmurs, without JVD. Abdomen: Soft, nontender, no masses, normoactive bowel sounds. Extremities: Without clubbing, cyanosis, without edema. Neuro: Nonfocal exam, strength, 5 out of 5 Skin: Within normal limits without lesions. Psych: Mood and affect: Normal Current Medications: Current Medications Sig/Pablo Start time Last Medication Dose Route Stop Time Status Admin Acetaminophen 1,000 MG Q6H 12/17 0200 DC 12/17 N/A 1 UNIT IV 12/17 Albuterol Sulfate 3 ML Q4P PRN 12/17 1130 AC INH Albuterol Sulfate 2 PUF Q4P PRN 12/17 0130 AC INH Allopurinol 300 MG DAILY 12/17 09 AC 12/18 PO 0941 Atorvastatin Calcium 10 MG 1700 12/17 1700 AC 12/17 PO 1610 Budesonide/ 2 PUF BID 12/17 0147 AC 12/18 Formoterol Fumarate INH 0944 Cyanocobalamin 250 MCG DAILY 12/17 1434 AC 12/18 PO 0942 Diltiazem HCl 180 MG DAILY 12/17 09 AC 12/18 PO 0943 Docusate Sodium 100 MG DAILY 12/17 0900 AC 12/18 PO 0941 Fentanyl Citrate 100 MCG Q72 12/17 09 AC 12/17 TOP 1022 Folic Acid 1 MG DAILY 12/17 09 AC 12/18 PO 0941 Heparin Sodium 5,000 UNIT .STK-MED ONE 12/17 1242 DC (Porcine) IV 12/17 1243 Heparin Sodium 10,000 UNIT .STK-MED ONE 12/17 1236 DC (Porcine) IV 12/17 1237 Heparin Sodium 11,670 UNIT ONCE ONE 12/17 1150 DC 12/17 (Porcine) IV 12/17 1151 1257 Heparin Sodium/ 25,000 UNIT Q24H 12/17 0245 DC 12/17 Dextrose IV 1115 Dextrose/Water 500 ML Insulin Human Regular 0 Q6 12/17 0245 AC 12/18 SC 0628 Lisinopril 20 MG DAILY 12/17 1436 AC 12/18 PO 0942 Lorazepam 1 MG Q2 HRS NEEDED PRN 12/17 1715 AC 12/18 IV 0933 Lorazepam 0.5 MG Q4P PRN 12/17 0245 DC 12/17 IV 1430 Magnesium Sulfate 1 GM ONCE ONE 12/17 1200 DC 12/17 Dextrose/Water 100 ML IV 12/17 1559 1257 Morphine Sulfate 2 MG Q4P PRN 12/17 0200 AC 12/18 IV 0934 Multivitamins 1 TAB DAILY 12/17 0900 AC 12/18 PO 0942 Nicotine 14 MG Q24 12/17 899 12/18 TOP 0943 Ondansetron HCl 4 MG Q8P PRN 12/17 0130 AC IV Oxycodone HCl 20 MG 4 TIMES/DAY PRN 12/17 0200 AC 12/18 PO 0503 Potassium Chloride 20 MEQ CONTINOUS INFUSION 12/17 1130 CAN IV Potassium Chloride 20 MEQ Q13H 12/17 1130 DC 12/17 Dextrose/Sodium 1,000 ML IV 1258 Chloride Potassium Chloride 10 MEQ DAILY 12/17 899 AC 12/18 PO 0941 Sodium Chloride 1,000 ML .Q10H 12/17 0130 DC 12/17 IV 0456 Thiamine HCl 100 MG DAILY 12/17 899 AC 12/18 PO 0942 Results Last 48 Hrs of Labs/Mics: Laboratory Tests 12/18/17 0755: Anion Gap 7, Estimated GFR > 60, BUN/Creatinine Ratio 18.0, Magnesium 1.8, APTT 35, CBC w Diff NO MAN DIFF REQ, RBC 4.72, MCV 99.9 H, MCH 32.4 H, MCHC 32.4 L , RDW 14.0, MPV 7.8, Gran % 81.2 H, Lymphocytes % 9.5 L, Monocytes % 8.1, Eosinophils % 0.7, Basophils % 0.5, Absolute Granulocytes 7.5 H, Absolute Lymphocytes 0.9 L, Absolute Monocytes 0.8 H, Absolute Eosinophils 0.1, Absolute Basophils 0 12/17/17 1607: APTT > 120 *H 12/17/17 1000: APTT 41 H 12/17/17 0705: Anion Gap 8, Estimated GFR > 60, BUN/Creatinine Ratio 25.0, Magnesium 1.7, APTT 42 H, CBC w Diff NO MAN DIFF REQ, RBC 4.74, MCV 98.9 H, MCH 32.6 H, MCHC 32.9 L, RDW 14.4, MPV 7.9, Gran % 75.0, Lymphocytes % 15.2 L, Monocytes % 9.3, Eosinophils % 0.4, Basophils % 0.1, Absolute Granulocytes 7.1 H, Absolute Lymphocytes 1.4, Absolute Monocytes 0.9 H, Absolute Eosinophils 0, Absolute Basophils 0 12/17/17 0238: APTT Cancelled 12/17/17 0135: Urine Color YEL, Urine Clarity HAZY H, Urine pH 6.5, Ur Specific [place] 1.010, Urine Protein 30 H, Urine Ketones NEG, Urine Nitrite NEG, Urine Bilirubin NEG, Urine Urobilinogen 4.0 H, Ur Leukocyte Esterase NEG, Ur Microscopic SEDIMENT EXAMINED, Urine RBC RARE, Urine WBC RARE, Ur Epithelial Cells RARE, Urine Bacteria RARE H, Urine Mucus RARE, Urine Hemoglobin NEG, Urine Glucose NEG 12/17/17 0115: Lactic Acid 1.9 12/16/17 2215: Anion Gap 17 H, Estimated GFR > 60, BUN/Creatinine Ratio 25.7 H, Glucose 111 H, Lactic Acid 3.6 H, Calcium 9.2, Magnesium 1.8, Total Bilirubin 0.8, AST 24, ALT 29, Alkaline Phosphatase 79, Troponin I < 0.01, Total Protein 7.1, Albumin 4.3, Globulin 2.8, Albumin/Globulin Ratio 1.5, Lipase 45, PT 13.8 H, INR 1.26 H, APTT 48 H, CBC w Diff NO MAN DIFF REQ, RBC 5.24, MCV 99.2 H, MCH 32.8 H, MCHC 33.1, RDW 14.0, MPV 7.3 L, Gran % 72.9, Lymphocytes % 15.5 L, Monocytes % 10.4 H, Eosinophils % 0.8, Basophils % 0.4, Absolute Granulocytes 8.0 H, Absolute Lymphocytes 1.7, Absolute Monocytes 1.1 H, Absolute Eosinophils 0.1, Absolute Basophils 0, Serum Alcohol 102.0 Assessment/Plan Assessment/Plan 62-year-old gentleman with a past medical history of persistent atrial fibrillation (anticoagulated with Pradaxa), diabetes mellitus, hypertension and obstructive sleep apnea. He presented to our hospital with symptoms of abdominal pain, and was found to have a periumbilical hernia, and will require surgical correction for the same. Periumbilical hernia: The patient will require surgical correction for the same. From a cardiac standpoint, given his ability to perform 4-6 metastases of physical activity as well as his cardiac history and known LV function (normal), he may proceed with the upcoming surgery without the need for further preoperative cardiac testing. His overall risk for perioperative ischemic events is not significantly elevated above his baseline risk factors. His overall risk for perioperative congestive heart failure events is not significantly elevated. The timing for his surgery however will need to be based on his last dose of Pradaxa. Given the timing of his last dose, this may be performed today. He does not require perioperative bridging with heparin. Atrial fibrillation: Heart rate controlled, the patient will require anticoagulation postprocedure as above. Hypertension: The patient has suboptimally controlled hypertension with overall improved results in the outpatient setting. We will continue his current medication regimen and make further adjustments after discharge as an outpatient. Continue telemetry? No
--- NOTE | 2017-12-18 13:03 | PN- General Surgery ---
Subjective Subjective: Patient seen and evaluated with Dr. Benoit. No events overnight. Hernia is reduced and much less painful today. He overall is comfortable. Voiding without problems and has had BM. Denies cp, sob, n/v/d, fever/chills. Objective Vital Signs and I&Os Vital Signs Date Time Temp Pulse Resp B/P B/P Pulse O2 O2 Flow FiO2 Mean Ox Delivery Rate 12/18 0942 98.4 75 20 138/70 12/18 0620 98.4 75 20 138/70 92 Nasal Cannula 12/18 0600 98.4 75 20 138/70 12/18 0200 98.0 80 20 130/80 12/18 0200 98.1 85 20 132/78 94 Room Air 12/18 0000 96 Nasal 3.0L Cannula 12/17 2200 97.8 88 22 128/80 12/17 2153 97.8 88 22 128/80 96 Nasal Cannula 12/17 1715 86 154/92 12/17 1600 94 Nasal 4.0L Cannula 12/17 1423 Nasal 4.0L Cannula 12/17 1422 97.3 99 20 150/90 91 12/17 1400 97.3 99 20 150/90 Intake & Output 12/18 1600 12/18 0800 12/18 0000 12/17 1600 12/17 0800 12/17 0000 Intake Total 720 984 162 7824 0 Output Total 200 850 900 400 200 0 Balance -200 -130 -970 306 5953 0 Intake, IV 600 845 531 4150 Intake, Oral 120 120 50 120 0 Output, Urine 200 850 900 400 200 0 Patient 346 lb 343 lb 365 lb Weight Weight Bed scale Bed scale Measurement Method Physical Exam: General: obese male, laying supine in bed, answer questions without problems, nad CV: RRR Pulm: CTA Abdomen: abdominal binder in place, umbilical hernia palpated and it is reduced, mild tenderness to palpation, bs+, obese, no guarding Neuro: aaox3 Current Medications: Current Medications Sig/Pablo Start time Last Medication Dose Route Stop Time Status Admin Acetaminophen 1,000 MG Q6H 12/17 0200 DC 12/17 N/A 1 UNIT IV 12/17 Albuterol Sulfate 3 ML Q4P PRN 12/17 113 AC INH Albuterol Sulfate 2 PUF Q4P PRN 12/17 0130 AC INH Allopurinol 300 MG DAILY 12/17 899 AC 12/18 PO 0941 Atorvastatin Calcium 10 MG 1700 12/17 1700 AC 12/17 PO 1610 Budesonide/ 2 PUF BID 12/17 0147 AC 12/18 Formoterol Fumarate INH 0944 Cyanocobalamin 250 MCG DAILY 12/17 1434 AC 12/18 PO 0942 Diltiazem HCl 180 MG DAILY 12/17 09 AC 12/18 PO 0943 Docusate Sodium 100 MG DAILY 12/17 899 AC 12/18 PO 0941 Fentanyl Citrate 100 MCG Q72 12/17 09 12/17 TOP 1022 Folic Acid 1 MG DAILY 12/17 899 AC 12/18 PO 0941 Heparin Sodium/ 25,000 UNIT Q24H 12/17 0245 DC 12/17 Dextrose IV 1115 Dextrose/Water 500 ML Insulin Human Regular 0 Q6 12/17 0245 AC 12/18 SC 0628 Lisinopril 20 MG DAILY 12/17 1436 AC 12/18 PO 0942 Lorazepam 1 MG Q2 HRS NEEDED PRN 12/17 1715 AC 12/18 IV 0933 Lorazepam 0.5 MG Q4P PRN 12/17 0245 DC 12/17 IV 1430 Magnesium Sulfate 1 GM ONCE ONE 12/17 1200 DC 12/17 Dextrose/Water 100 ML IV 12/17 1559 1257 Morphine Sulfate 2 MG Q4P PRN 12/17 0200 12/18 IV 0934 Multivitamins 1 TAB DAILY 12/17 899 12/18 PO 0942 Nicotine 14 MG Q24 12/17 09 12/18 TOP 0943 Ondansetron HCl 4 MG Q8P PRN 12/17 0130 AC IV Oxycodone HCl 20 MG 4 TIMES/DAY PRN 12/17 0200 AC 12/18 PO 1101 Potassium Chloride 20 MEQ Q13H 12/17 1130 DC 12/17 Dextrose/Sodium 1,000 ML IV 1258 Chloride Potassium Chloride 10 MEQ DAILY 12/17 899 AC 12/18 PO 0941 Thiamine HCl 100 MG DAILY 12/17 899 AC 12/18 PO 0942 Results Last 48 Hours of Labs: Laboratory Tests 12/18 12/17 12/17 0755 1607 1000 Chemistry Sodium (137 - 145 mmol/L) 138 Potassium (3.5 - 5.1 mmol/L) 3.6 Chloride (98 - 107 mmol/L) 93 L Carbon Dioxide (22 - 30 mmol/L) 37 H Anion Gap (5 - 16) 7 BUN (9 - 20 mg/dL) 9 Creatinine (0.7 - 1.2 mg/dL) 0.5 L Estimated GFR (>60 ml/min) > 60 BUN/Creatinine Ratio (7 - 25 %) 18.0 Magnesium (1.6 - 2.3 mg/dL) 1.8 Coagulation APTT (25 - 37 SEC) 35 > 120 *H 41 H Hematology CBC w Diff NO MAN DIFF REQ WBC (4.8 - 10.8 /CUMM) 9.3 RBC (4.70 - 6.10 /CUMM) 4.72 Hgb (14.0 - 18.0 G/DL) 15.3 Hct (42 - 52 %) 47.2 MCV (80.0 - 94.0 FL) 99.9 H MCH (27.0 - 31.0 PG) 32.4 H MCHC (33.0 - 37.0 G/DL) 32.4 L RDW (11.5 - 14.5 %) 14.0 Plt Count (130 - 400 /CUMM) 202 MPV (7.4 - 10.4 FL) 7.8 Gran % (42.2 - 75.2 %) 81.2 H Lymphocytes % (20.5 - 51.1 %) 9.5 L Monocytes % (1.7 - 9.3 %) 8.1 Eosinophils % (0 - 5 %) 0.7 Basophils % (0.0 - 2.0 %) 0.5 Absolute Granulocytes (1.4 - 6.5 /CUMM) 7.5 H Absolute Lymphocytes (1.2 - 3.4 /CUMM) 0.9 L Absolute Monocytes (0.10 - 0.60 /CUMM) 0.8 H Absolute Eosinophils (0.0 - 0.7 /CUMM) 0.1 Absolute Basophils (0.0 - 0.2 /CUMM) 0 12/17 12/17 0705 0238 Chemistry Sodium (137 - 145 mmol/L) 133 L Potassium (3.5 - 5.1 mmol/L) 3.5 Chloride (98 - 107 mmol/L) 88 L Carbon Dioxide (22 - 30 mmol/L) 37 H Anion Gap (5 - 16) 8 BUN (9 - 20 mg/dL) 15 Creatinine (0.7 - 1.2 mg/dL) 0.6 L Estimated GFR (>60 ml/min) > 60 BUN/Creatinine Ratio (7 - 25 %) 25.0 Magnesium (1.6 - 2.3 mg/dL) 1.7 Coagulation APTT (25 - 37 SEC) 42 H Cancelled Hematology CBC w Diff NO MAN DIFF REQ WBC (4.8 - 10.8 /CUMM) 9.5 RBC (4.70 - 6.10 /CUMM) 4.74 Hgb (14.0 - 18.0 G/DL) 15.4 Hct (42 - 52 %) 46.9 MCV (80.0 - 94.0 FL) 98.9 H MCH (27.0 - 31.0 PG) 32.6 H MCHC (33.0 - 37.0 G/DL) 32.9 L RDW (11.5 - 14.5 %) 14.4 Plt Count (130 - 400 /CUMM) 212 MPV (7.4 - 10.4 FL) 7.9 Gran % (42.2 - 75.2 %) 75.0 Lymphocytes % (20.5 - 51.1 %) 15.2 L Monocytes % (1.7 - 9.3 %) 9.3 Eosinophils % (0 - 5 %) 0.4 Basophils % (0.0 - 2.0 %) 0.1 Absolute Granulocytes (1.4 - 6.5 /CUMM) 7.1 H Absolute Lymphocytes (1.2 - 3.4 /CUMM) 1.4 Absolute Monocytes (0.10 - 0.60 /CUMM) 0.9 H Absolute Eosinophils (0.0 - 0.7 /CUMM) 0 Absolute Basophils (0.0 - 0.2 /CUMM) 0 12/17 12/17 0135 0115 Chemistry Lactic Acid (0.7 - 2.1 mmol/L) 1.9 Urines Urine Color (YEL,AMB,STR) YEL Urine Clarity (CLEAR) HAZY H Urine pH (5.0 - 8.0) 6.5 Ur Specific [place] (1.001 - 1.035) 1.010 Urine Protein (NEG,<30 MG/DL) 30 H Urine Ketones (NEG) NEG Urine Nitrite (NEG) NEG Urine Bilirubin (NEG) NEG Urine Urobilinogen (0.1 - 1.0 EU/dl) 4.0 H Ur Leukocyte Esterase (NEG) NEG Ur Microscopic SEDIMENT EXAMINED Urine RBC (0 - 5 /HPF) RARE Urine WBC (0 - 2 /HPF) RARE Ur Epithelial Cells (NONE,FEW) RARE Urine Bacteria (NEG/NONE) RARE H Urine Mucus (FEW,NONE) RARE Urine Hemoglobin (NEG) NEG Urine Glucose (N MG/DL) NEG 12/16 2215 Chemistry Sodium (137 - 145 mmol/L) 135 L Potassium (3.5 - 5.1 mmol/L) 3.2 L Chloride (98 - 107 mmol/L) 84 L Carbon Dioxide (22 - 30 mmol/L) 34 H Anion Gap (5 - 16) 17 H BUN (9 - 20 mg/dL) 18 Creatinine (0.7 - 1.2 mg/dL) 0.7 Estimated GFR (>60 ml/min) > 60 BUN/Creatinine Ratio (7 - 25 %) 25.7 H Glucose (65 - 99 mg/dL) 111 H Lactic Acid (0.7 - 2.1 mmol/L) 3.6 H Calcium (8.4 - 10.2 mg/dL) 9.2 Magnesium (1.6 - 2.3 mg/dL) 1.8 Total Bilirubin (0.2 - 1.3 mg/dL) 0.8 AST (17 - 59 U/L) 24 ALT (21 - 72 U/L) 29 Alkaline Phosphatase (< 127 U/L) 79 Troponin I (<0.11 ng/ml) < 0.01 Total Protein (6.3 - 8.2 g/dL) 7.1 Albumin (3.5 - 5.0 g/dL) 4.3 Globulin (1.9 - 4.2 gm/dL) 2.8 Albumin/Globulin Ratio (1.1 - 2.2 %) 1.5 Lipase (23 - 300 U/L) 45 Coagulation PT (9.4 - 12.5 SEC) 13.8 H INR (0.90 - 1.17) 1.26 H APTT (25 - 37 SEC) 48 H Hematology CBC w Diff NO MAN DIFF REQ WBC (4.8 - 10.8 /CUMM) 10.9 H RBC (4.70 - 6.10 /CUMM) 5.24 Hgb (14.0 - 18.0 G/DL) 17.2 Hct (42 - 52 %) 52.0 MCV (80.0 - 94.0 FL) 99.2 H MCH (27.0 - 31.0 PG) 32.8 H MCHC (33.0 - 37.0 G/DL) 33.1 RDW (11.5 - 14.5 %) 14.0 Plt Count (130 - 400 /CUMM) 231 MPV (7.4 - 10.4 FL) 7.3 L Gran % (42.2 - 75.2 %) 72.9 Lymphocytes % (20.5 - 51.1 %) 15.5 L Monocytes % (1.7 - 9.3 %) 10.4 H Eosinophils % (0 - 5 %) 0.8 Basophils % (0.0 - 2.0 %) 0.4 Absolute Granulocytes (1.4 - 6.5 /CUMM) 8.0 H Absolute Lymphocytes (1.2 - 3.4 /CUMM) 1.7 Absolute Monocytes (0.10 - 0.60 /CUMM) 1.1 H Absolute Eosinophils (0.0 - 0.7 /CUMM) 0.1 Absolute Basophils (0.0 - 0.2 /CUMM) 0 Toxicology Serum Alcohol (<10 MG/DL) 102.0 Assessment/Plan Assessment/Plan This is a 62 y/o M w/ PMHx of active smoker with heavy alcohol consumption, HTN, DM, afib on pradaxa, psoriatic arthritis on celebrex/fentanyl patch, JERRELL noncompliant with CPAP who was admitted to surgery for incarcirated umbilical hernia that is now reduced Patient and plan discussed with both Dr. Lynch and Dr. Benoit - Plan for OR tomorrow after 3 days off pradaxa - regular diet now, NPO after midnight - appreciate ongoing medical and cardiology recs - continue current pain meds - abdominal binder Core Measures Venous Thromboembolism VTE Risk Factors Surgery No Mechanical VTE Prophylaxis d/t N/A MechProphylax Ordered No VTE Pharm Prophylaxis d/t Surgical Contraindication
--- NOTE | 2017-12-18 14:15 | PN- Att Addend ---
Attending Addendum Attending Brief Note Patient seen and examined, Feels hungry. Denies any abd pain currently. Has abd binder on. Vital Signs Date Time Temp Pulse Resp B/P B/P Pulse O2 O2 Flow FiO2 Mean Ox Delivery Rate 12/18 0942 98.4 75 20 138/70 / 0620 98.4 75 20 138/70 92 Nasal Cannula 12/18 0600 98.4 75 20 138/70 12/18 0200 98.0 80 20 130/80 12/18 0200 98.1 85 20 132/78 94 Room Air 12/18 0000 96 Nasal 3.0L Cannula 12/17 2200 97.8 88 22 128/80 12/17 2153 97.8 88 22 128/80 96 Nasal Cannula 12/17 1715 86 154/92 12/17 1600 94 Nasal 4.0L Cannula 12/17 1423 Nasal 4.0L Cannula 12/17 1422 97.3 99 20 150/90 91 on exam; aox3, nad. cv; s1,s2, rrr resp; clear abd; soft, nt, bs+ ext; no edema Laboratory Tests 12/18 12/17 0755 1607 Chemistry Sodium (137 - 145 mmol/L) 138 Potassium (3.5 - 5.1 mmol/L) 3.6 Chloride (98 - 107 mmol/L) 93 L Carbon Dioxide (22 - 30 mmol/L) 37 H Anion Gap (5 - 16) 7 BUN (9 - 20 mg/dL) 9 Creatinine (0.7 - 1.2 mg/dL) 0.5 L Estimated GFR (>60 ml/min) > 60 BUN/Creatinine Ratio (7 - 25 %) 18.0 Magnesium (1.6 - 2.3 mg/dL) 1.8 Coagulation APTT (25 - 37 SEC) 35 > 120 *H Hematology CBC w Diff NO MAN DIFF REQ WBC (4.8 - 10.8 /CUMM) 9.3 RBC (4.70 - 6.10 /CUMM) 4.72 Hgb (14.0 - 18.0 G/DL) 15.3 Hct (42 - 52 %) 47.2 MCV (80.0 - 94.0 FL) 99.9 H MCH (27.0 - 31.0 PG) 32.4 H MCHC (33.0 - 37.0 G/DL) 32.4 L RDW (11.5 - 14.5 %) 14.0 Plt Count (130 - 400 /CUMM) 202 MPV (7.4 - 10.4 FL) 7.8 Gran % (42.2 - 75.2 %) 81.2 H Lymphocytes % (20.5 - 51.1 %) 9.5 L Monocytes % (1.7 - 9.3 %) 8.1 Eosinophils % (0 - 5 %) 0.7 Basophils % (0.0 - 2.0 %) 0.5 Absolute Granulocytes (1.4 - 6.5 /CUMM) 7.5 H Absolute Lymphocytes (1.2 - 3.4 /CUMM) 0.9 L Absolute Monocytes (0.10 - 0.60 /CUMM) 0.8 H Absolute Eosinophils (0.0 - 0.7 /CUMM) 0.1 Absolute Basophils (0.0 - 0.2 /CUMM) 0 Aseessment and Recommendations: 62 y/o HTN, Diabetes, A.fib on pradaxa, Psoriatic arthritis on celebrex/fentanyl patch, JERRELL noncompliant with CPAP admitted to surgical service with abd pain, incarcerated umblical hernia which was reduced. Pt awaiting OR and surgery will be done after 3 days off of Pradaxa. cardiology on martell. Agree with feeding the pt today and NPO post MN. Reduce the dose of ativan to 0.5 mg q2 prn as CIWA scores are not high. Continue the rest of the MX. Per cardio, no need for hep bridging perioperatively. But ok to use hep sq for dvt px.
[2017-12-19] VITALS (10 sets, daily range): BP systolic 142–166; BP diastolic 80–114
--- NOTE | 2017-12-19 09:41 | Event Note ---
Event Note Event Note: Spoke with Dr. Mosley regarding blood pressure management which was 167/80, 165/ 80 with a HR of 126. An EKG was done at that point, patient continues to be in a fib with HR of 111. Can give the patient 20 IV labetalol now, monitor him on telemetry floor and if the blood pressure and HR comes down, patient is ok for surgery. Labetalol was not given and instead his dose of cardizem was increased after confirming with Dr. Farrell.
--- NOTE | 2017-12-19 13:15 | PN- Att Addend ---
Attending Addendum Attending Brief Note Patient seen and examined, he became tachycardic and hypertensive this am. He was in rapid afib requiring Tele tx. Off note pt does drink ETOH on daily basis and therre is a possibility that ETOH withdrawl has pushed him into this. Vital Signs Date Time Temp Pulse Resp B/P B/P Pulse O2 O2 Flow FiO2 Mean Ox Delivery Rate 12/19 1149 98.6 102 24 150/98 90 Nasal 3.0L Cannula 12/19 0800 98.3 121 26 162/100 12/19 0800 92 Nasal 3.0L Cannula 12/19 0717 98.3 90 22 150/86 / 0716 90 22 150/86 / 0648 98.3 121 26 162/100 94 12/19 0600 98.3 90 22 150/86 / 0200 98.5 100 24 150/80 / 2259 94 Nasal 3.0L Cannula 12/18 2202 98.7 106 18 144/80 94 Nasal Cannula 12/18 2200 98.7 106 20 144/80 / 1432 97.5 75 20 150/80 90 Nasal 2.0L Cannula on exam; aox3, but sleeps in the middle of conversation. cv; s1,s2, tachy and irregular. resp; clear abd; soft, nt, bs+ with abd binder ext; no edema no labs. A/P: 62 y/o HTN, Diabetes, A.fib on pradaxa, Psoriatic arthritis on celebrex/ fentanyl patch, JERRELL noncompliant with CPAP admitted to surgical service with abd pain, incarcerated umblical hernia which was reduced. Patient was awaiting to go to operating room after he had been off of Pradaxa for 3 days. This morning he went into rapid A. fib and had uncontrolled hypertension. Surgery was canceled and patient has been transferred to telemetry. I spoke with Dr. Butts and with all the active issues going on patient will be transferred to medical service on telemetry. Please check BEP and magnesium level today. Replete as indicated. Patient should be started on scheduled and when necessary Ativan per [facility] protocol. Please add folate, thiamine and multivitamin. At this point we can increase the dose of his Cardizem to 240 mg early. If he does have bursts of tachycardia or hypertension in between, can use labetalol 10 mg IV as needed. Cardiology on board. Today will be to 72 hours that he had been off of his Pradaxa. Okay to use heparin subcutaneous for DVT prophylaxis. Patient can be started on diet today and nothing by mouth after midnight. For possible surgery tomorrow.
--- NOTE | 2017-12-19 15:45 | PN- General Surgery ---
Subjective Subjective: Patient hypertensive and tachycardic this am. Feeling anxious, no complaints of chest pain and shortness of breath. Is anticipating surgery today but understands he needs to be medically optimized prior to. Objective Vital Signs and I&Os Vital Signs Date Time Temp Pulse Resp B/P B/P Pulse O2 O2 Flow FiO2 Mean Ox Delivery Rate 12/19 1502 98.4 75 20 154/92 92 Nasal 4.0L Cannula 12/19 1454 92 Nasal 4.0L Cannula 12/19 1330 98.9 100 16 166/110 12/19 1309 96 162/114 12/19 1230 69 24 162/114 12/19 1149 98.6 102 24 150/98 90 Nasal 3.0L Cannula 12/19 0800 98.3 121 26 162/100 12/19 0800 92 Nasal 3.0L Cannula 12/19 0717 98.3 90 22 150/86 12/19 0716 90 22 150/86 12/19 0648 98.3 121 26 162/100 94 12/19 0600 98.3 90 22 150/86 12/19 0200 98.5 100 24 150/80 12/18 2259 94 Nasal 3.0L Cannula 12/18 2202 98.7 106 18 144/80 94 Nasal Cannula 12/18 2200 98.7 106 20 144/80 Intake & Output 12/19 1600 12/19 0800 12/19 0000 12/18 1600 12/18 0800 12/18 0000 Intake Total 540 920 630 720 720 Output Total 250 600 650 600 850 900 Balance 290 320 -20 -600 -130 -180 Intake, IV 300 800 30 600 600 Intake, Oral 240 120 600 120 120 Output, Urine 250 600 650 600 850 900 Patient 346 lb Weight Weight Bed scale Measurement Method Physical Exam: General: Alert and oriented x3, no acute distress but is mildly anxious at times re: surgery Cards: Irregularly irregular, ekg done, afib confirmed Pulm: CTA, non-labored Abdomen: Umbilical hernia reduced presently, abdomen non-tender Extremities: NV status grossly intact, bilateral calves soft and non-tender. Assessment/Plan Assessment/Plan This is a 62 year old male with a [facility] signficant for afib, htn, hm, hld, copd, chronic pain ,etoh, and mo. He presented to hospital on 12/17 with an incarcerated umbilical hernia. Plan is to surgically repair hernia, however, this am he became tachycardic and hypertensive. Was found to be in rapid afib. Was transferred to telemetry floor and subsequently to medical service. The consideration of etoh withdrawl is not being ruled out as a cause of his current cardiac status. -Surgery postponed, will re-evaluate hernia today and possiblity for surgery tomorrow -Patient to be made npo after midnight -Primary management to be under the responsibility of the medical service -Surgery will continue to closely follow -This has been discussed with Dr. Smith (covering for Dr. Lynch) and Dr. Lugo
--- NOTE | 2017-12-19 18:59 | PN- General Surgery ---
Surgical Brief Attending Note Brief Attending Note: Planning surgery today rapid A. fib possible DTs overnight case postponed by medical team, hernia is reducible still, it's a transverse slit about 4 cm long, he's tolerating diet no signs of bowel obstruction.
[2017-12-20] VITALS (15 sets, daily range): BP systolic 140–190; BP diastolic 82–118
--- NOTE | 2017-12-20 00:04 | RADIOLOGY REPORT ---
EXAMINATION: XR PORTABLE CHEST CLINICAL INFORMATION: Fluid overload. Desaturation with increased oxygen requirement. COMPARISON: Chest radiograph 12/17/2017. TECHNIQUE: Portable frontal view of the chest was obtained. FINDINGS: There is central vascular congestion without overt alveolar edema. There is possible interstitial edema. No pleural effusion or pneumothorax. The left lung bases not well evaluated but this is likely due to patient's large body habitus and portable technique. There is atelectasis at the right lung base. The heart is enlarged. IMPRESSION: Central vascular congestion with possible interstitial edema. Right basilar atelectasis. Cardiomegaly.
--- NOTE | 2017-12-20 07:11 | PN- Housestaff ---
Pallavi HARVEY,[facility] 12/20/17 0711: Subjective Follow-up For: Alcohol Detox Atrial Fibrilliation Hypoxia Tele-Events Since Last Visit: Bhumika with HR 114-150. Subjective: Patient was seen and examined at bedside. States doing okay. Was on high flow oxygen. Currently does not feel short of breath. Review of Systems Constitutional: Reports: no symptoms. Objective Last 24 Hrs of Vital Signs/I&O Vital Signs Date Time Temp Pulse Resp B/P B/P Pulse O2 O2 Flow FiO2 Mean Ox Delivery Rate 12/20 1400 108 16 144/92 12/20 1340 108 16 144/92 12/20 1206 107 20 142/92 12/20 1206 107 20 142/92 96 Nasal 4.0L Cannula 12/20 1150 94 Nasal 4.0L Cannula 12/20 1021 133 22 140/92 12/20 1021 122 22 140/92 12/20 0849 98.1 123 20 144/90 12/20 0800 Nasal 55% Cannula 12/20 0800 98.1 123 20 144/90 12/20 0742 123 144/90 12/20 0740 123 144/90 12/20 0629 98.1 121 20 142/110 93 Nasal 50% Cannula 12/20 0602 94 Nasal 55% Cannula 12/20 0129 97.6 118 20 148/110 90 Nasal 55% Cannula 12/20 0000 Nasal 50% Cannula 12/19 2250 91 Nasal 5.0L Cannula 12/19 2124 98.1 104 142/80 92 Nasal 4.0L Cannula 12/19 1600 90 Nasal 3.0L Cannula 12/19 1502 98.4 75 20 154/92 92 Nasal 4.0L Cannula 12/19 1454 92 Nasal 4.0L Cannula Intake & Output 12/20 1600 12/20 0800 12/20 0000 Intake Total 755 90 110 Output Total 1999 500 250 Balance -1245 -410 -140 Intake, IV 155 90 50 Intake, Oral 600 60 Output, Urine 2000 500 250 Patient 344 lb 359 lb Weight Weight Bed scale Measurement Method Physical Exam General Appearance: Alert, Oriented X3, Cooperative, Mild Distress Skin: No Rashes, No Breakdown Skin Temp/Moisture Exam: Warm/Dry Sepsis Skin Exam (color): Normal for Ethnicity HEENT: Atraumatic Cardiovascular: Normal S1, Normal S2, No Murmurs, tachycardic, irregular Lungs: Normal Air Movement Abdomen: Soft, No Tenderness, umbilical hernia Neurological: Normal Speech Extremities: mild edema of b/l lower extremities Last 24 Hrs of Lab/Timothy Results Last 24 Hrs of Labs/Mics: Laboratory Tests 12/20/17 0635: Anion Gap 10, Estimated GFR > 60, BUN/Creatinine Ratio 22.0, Magnesium 1.7, Pro- B-Natriuretic Pept 5980 H, CBC w Diff NO MAN DIFF REQ, RBC 4.37 L, MCV 100.4 H, MCH 32.8 H, MCHC 32.7 L, RDW 14.1, MPV 8.0, Gran % 79.8 H, Lymphocytes % 9.3 L, Monocytes % 10.3 H, Eosinophils % 0.3, Basophils % 0.3, Absolute Granulocytes 8.2 H, Absolute Lymphocytes 1.0 L, Absolute Monocytes 1.1 H, Absolute Eosinophils 0, Absolute Basophils 0 12/19/17 2335: pH 7.41, pCO2 54 H, pO2 53 L, HCO3 34 H, ABG O2 Sat (Measured) 85.0 L, Carboxyhemoglobin 1.6, O2 Concentration % 5L, Temperature 98.4, O2 Delivery Method NC, Phlebotomy Draw Site RIGHT RADIAL 12/19/17 1450: Anion Gap 8, Estimated GFR > 60, BUN/Creatinine Ratio 20.0, Magnesium 1.6 Assessment/Plan Assessment: 62 YO M with PMH significant for COPD, A.fib on pradaxa, JERRELL (not compliant with CPAP), Psoriatic arthritis, Venous insufficiency, regular alcohol consumption, HTN presented to [facility] after developing abdominal pain this evening. Assessment: 1. Acute Hypoxic Respiratory Failure 2. Umbilical Hernia 3. Alcohol Detox 4. Atrial Fibrilliation with RVR 5. History of COPD 6. History of JERRELL Plan: * Continue oxygen supplementation to maintain target sats > 92%. Currently on 55 % high flow. Unclear etiology. Will taper him down as tolerated. * TRC/Nebs as needed. * He has a history of A.fib. However, his rate has been difficult to control on this admission. Likely his alcohol withdrawal is contributing to his tachycardia. * His proBNP is elevated but with A.fib its hard to interpret. * His CXR from this morning did show interstitial edema. * Start IV Lasix 40mg daily. * Start IV heparin for AC * Diltiazem increased to 240mg daily. * Echocardiogram - pending * Continue Ativan 2mg q6 PO * IV Ativan per [facility] * Continue thiamine, folic acid, multivitamins * Monitor electrolytes and replete as needed. * Nicotine patch 14mg daily. * Diet: Heart Healthy. NPO midnight for surgery tomorrow. * DVT Prophylaxis: IV heparin until surgery. Can be turned off 3 hours before surgery if medically cleared. On Pradaxa - but currently on hold for anticipated surgery. * Code Status: Full Code Problem List: 1. Atrial fibrillation Pain Ratin Pain Location: none Pain Goal: Remain pain free Pain Plan: none Tomorrow's Labs & Rationales: CBC, BEP, Mg YoandyRachelle 12/20/17 1054: Attending MD Review Statement Attending Statement Attending MD Statement: examined this patient, discuss w/resident/PA/BOOKKEEPING TEACHER, agreed w/resident/PA/BOOKKEEPING TEACHER, discussed with family, reviewed EMR data (avail), discussed with nursing, discussed with case mgmt, reviewed images, amended to note Attending Assessment/Plan: 62 y/o HTN, Diabetes, A.fib on pradaxa, Psoriatic arthritis on celebrex/fentanyl patch, JERRELL noncompliant with CPAP admitted to surgical service with abd pain, incarcerated umblical hernia which was reduced. This morning he went into rapid A. fib and had uncontrolled hypertension. Surgery was canceled and patient has been transferred to telemetry. Chest xray obtained suggestive of pulmonary edema. Patinet differentials for his shortness of breath differential include aspiration or chf exacerbation. Patient seen/examined bedside. He is aaox 2-3, bp 144/90, on high flow oxygen. labs wbc stable. afebrile. Ativan per [facility] protocol. c/w folate, thiamine and multivitamin. Cardiology on board. ADD lasix 40 iv daily, monitor I/O, reassess after diuretics. Afib rate uncontrolled on cardizem 240, treat underlying withdrawal would help rate control. c/w Cardizem 240 mg. Anticaoglaution with iv heparin in interim. Follow cardiology for further recs and if ok to go for surgery then inform surgical team/anesthesia. gi/dvt prophyalxis full code.
--- NOTE | 2017-12-20 08:07 | PN- General Surgery ---
Subjective Subjective: 62 Y/O MALE WITH -INCARCERATED UMBILICAL HERNIA -REDUCED 12/17 HD#3 -ABDOMEN SORE, HAS BINDER IN PLACE FEELS ANXIOUS AND WANTS TO LEAVE TO SMOKE FELT SHORT OF BREATH AFTER STANDING TO VOID BUT NO CP Review of Systems Constitutional: Reports: weakness. Denies: chills, diaphoresis, fever. EENTM: Denies: no symptoms. Cardiovascular: Reports: palpitations. Denies: chest pain, edema. Respiratory: Reports: short of breath. Denies: cough. Gastrointestinal: Reports: abdominal pain. Denies: nausea, vomiting. Genitourinary: Denies: no symptoms. Neurological/Psychological: Reports: anxiety, tremors. Hematologic/Endocrine: Denies: no symptoms. All Other Systems: Reviewed and Negative Objective Vital Signs and I&Os Vital Signs Date Time Temp Pulse Resp B/P B/P Pulse O2 O2 Flow FiO2 Mean Ox Delivery Rate 12/20 0742 123 144/90 12/20 0740 123 144/90 12/20 0629 98.1 121 20 142/110 93 Nasal 50% Cannula 12/20 0602 94 Nasal 55% Cannula 12/20 0129 97.6 118 20 148/110 90 Nasal 55% Cannula 12/20 0000 Nasal 50% Cannula 12/19 2250 91 Nasal 5.0L Cannula 12/19 2124 98.1 104 142/80 92 Nasal 4.0L Cannula 12/19 1600 90 Nasal 3.0L Cannula 12/19 1502 98.4 75 20 154/92 92 Nasal 4.0L Cannula 12/19 1454 92 Nasal 4.0L Cannula 12/19 1330 98.9 100 16 166/110 12/19 1309 96 162/114 12/19 1230 69 24 162/114 12/19 1149 98.6 102 24 150/98 90 Nasal 3.0L Cannula 12/19 0800 98.3 121 26 162/100 12/19 0800 92 Nasal 3.0L Cannula Intake & Output 12/20 0800 12/20 0000 12/19 1600 12/19 0800 12/19 0000 12/18 1600 Intake Total 90 110 540 920 630 Output Total 500 250 250 600 650 600 Balance -410 -140 290 320 -20 -600 Intake, IV 90 50 300 800 30 Intake, Oral 60 240 120 600 Output, Urine 500 250 250 600 650 600 Patient 344 lb 359 lb Weight Weight Bed scale Measurement Method Physical Exam: PATIENT LYING IN BED WITH MILD SOB ON HIGH FLOW 02 COMPLAINS HE IS ANXIOUS, IS PRESENT CHEST -CTA SYMMETRIC, FINE CRACKLES AT BASES BILAT HEART- TACHY, IRREGULAR, NO MURMERS RUBS OR GALLAPS ABDOMEN - OBESE -BINDER IN PLACE, GENERALIZED SORENESS UMBILICAL HERNIA WITH ABDOMINAL CONTENTS IS REDUCABLE EXT - MILD EDEMA, CALVES SOFT Assessment/Plan Assessment/Plan Assessment/Plan 62 year old male with a PMHx signficant for afib, htn, hm, hld, copd, chronic pain ,etoh, umbilical hernias -repair when cleared by medicine etoh withdrawal -tachy and hypertensive with aggitation on CIWA @ 15 with ativan, follow carefully afib -tachy increase cardiazem and lasix echo today, consider cxr surgery on hold til medically stable advance diet to regular then NPO after midnight discussed with Dr. Koo NOTE ENTERED BY: Yahaira Dennis DATE/TIME ENTERED:12/19/171535 REPORT NUMBER:[id number] Core Measures Venous Thromboembolism VTE Risk Factors Surgery No Mechanical VTE Prophylaxis d/t N/A MechProphylax Ordered No VTE Pharm Prophylaxis d/t Surgical Contraindication
[2017-12-20 08:38] LABS: ABSOLUTE BASOPHIL COUNT 0 /CUMM (0.0-0.2); ABSOLUTE EOSINOPHIL COUNT 0 /CUMM (0.0-0.7); ABSOLUTE GRANULOCYTE CT 8.2 /CUMM (1.4-6.5); ABSOLUTE MONOCYTE COUNT 1.1 /CUMM (0.10-0.60); BASOPHIL % 0.3 % (0.0-2.0); EOSINOPHIL % 0.3 % (0-5); GRANULOCYTE % 79.8 % (42.2-75.2); HEMATOCRIT 43.9 % (42-52); MEAN CORPUSCULAR HGB 32.8 PG (27.0-31.0); MEAN CORPUSCULAR HGB CONC 32.7 G/DL (33.0-37.0); MEAN CORPUSCULAR VOLUME 100.4 FL (80.0-94.0); PLATELET COUNT 191 /CUMM (130-400); RBC DISTRIBUTION WIDTH 14.1 % (11.5-14.5); RED BLOOD CELL CT 4.37 /CUMM (4.70-6.10); WHITE BLOOD CELL COUNT 10.2 /CUMM (4.8-10.8)
--- NOTE | 2017-12-20 18:03 | PN- General Surgery ---
Surgical Brief Attending Note Brief Attending Note: Patient seen and examined, weekend events noted. Hernia soft and reducible. In A. fib/DTs now. Hernia likely has been present for a long time and is no longer an urgent matter as he has been fine all weekend, would continue medical management and control HR/DTs, F/U cardiology, I do not think he needs to be NPO as he does not appear to be stable at this point of surgery in the near future, may be able to discharge once cleared by medicine and possible repair electively once cleared. Would need to assess overall clinical condition.
[2017-12-21 00:13] LABS: PTT 37 SEC (25-37)
--- NOTE | 2017-12-21 04:58 | Event Note ---
Event Note Event Note: Overnight, patient has remained agitated, and has tried pulling his IV lines as well, not maintaining his nasal cannula many times during the night, thus would benefit from a sitter in the room, who would ensure that the patient receives proper reduction therapy and does not pull his IV lines.
[2017-12-21 06:42] VITALS: BP 158/80
--- NOTE | 2017-12-21 07:04 | PN- Housestaff ---
Pallavi HARVEY,[facility] 12/21/17 0704: Subjective Follow-up For: Bhumika/DTs umbilical hernia acute hypoxic respiratory failure Tele-Events Since Last Visit: Bhumika with HR 108-126. Subjective: patient was seen and examined at bedside. States he had an unpleasant night. He got short of breath and was switched to high flow O2. Currently feels okay. Does not offer any complaints. Review of Systems Constitutional: Reports: no symptoms. Objective Last 24 Hrs of Vital Signs/I&O Vital Signs Date Time Temp Pulse Resp B/P B/P Pulse O2 O2 Flow FiO2 Mean Ox Delivery Rate 12/21 0642 98.3 108 20 158/80 95 Nasal Cannula 12/21 0500 93 Nasal 80% Cannula 12/21 0439 130 12/21 0000 90 Nasal 6.0L Cannula 12/20 2305 144/88 12/20 2141 103 190/118 12/20 2134 98.4 106 22 190/118 94 Nasal Cannula 12/20 1800 105 20 152/82 12/20 1722 105 152/82 12/20 1600 98.8 105 20 152/82 12/20 1439 98.8 105 20 152/82 95 Nasal 4.0L Cannula 12/20 1400 108 16 144/92 12/20 1340 108 16 144/92 12/20 1206 107 20 142/92 12/20 1206 107 20 142/92 96 Nasal 4.0L Cannula 12/20 1150 94 Nasal 4.0L Cannula 12/20 1021 133 22 140/92 12/20 1021 122 22 140/92 12/20 0849 98.1 123 20 144/90 12/20 0800 Nasal 55% Cannula 12/20 0800 98.1 123 20 144/90 12/20 0742 123 144/90 12/20 0740 123 144/90 Intake & Output 12/21 0800 12/21 0000 12/20 1600 Intake Total 704 481.5 755 Output Total 432 852 7959 Balance 454 -18.5 -1245 Intake, IV 304 59.5 155 Intake, Oral 400 422 600 Output, Urine 590 613 2746 Patient 314 lb Weight Physical Exam General Appearance: Cooperative, Mild Distress, awake, sleepy Skin: No Rashes, No Breakdown Skin Temp/Moisture Exam: Warm/Dry Sepsis Skin Exam (color): Normal for Ethnicity HEENT: Atraumatic Cardiovascular: Normal S1, Normal S2, No Murmurs Lungs: Normal Air Movement Abdomen: Soft, No Tenderness Neurological: Normal Speech Extremities: No Edema Last 24 Hrs of Lab/Timothy Results Last 24 Hrs of Labs/Mics: Laboratory Tests 12/21/17 0615: Sodium Pending, Potassium Pending, Chloride Pending, Carbon Dioxide Pending, Anion Gap Pending, BUN Pending, Creatinine Pending, BUN/Creatinine Ratio Pending , Magnesium Pending, CBC w Diff Pending, WBC Pending, RBC Pending, Hgb Pending, Hct Pending, MCV Pending, MCH Pending, MCHC Pending, RDW Pending, Plt Count Pending, MPV Pending 12/20/17 2355: APTT 37 Assessment/Plan Assessment: 62 YO M with PMH significant for COPD, A.fib on pradaxa, JERRELL (not compliant with CPAP), Psoriatic arthritis, Venous insufficiency, regular alcohol consumption, HTN presented to [place] after developing abdominal pain this evening. Assessment: 1. Acute Hypoxic Respiratory Failure 2. Umbilical Hernia 3. Alcohol Detox 4. Atrial Fibrilliation with RVR 5. History of COPD 6. History of JERRELL Plan: * Continue oxygen supplementation to maintain target sats > 92%. Currently on 80 % high flow. Unclear etiology of his hypoxia. Will taper him down as tolerated. * He desaturated overnight again as his NC was off him. He informs that he is supposed to be on CPAP but he does not like using that device. * TRC/Nebs as needed. * Pulm recs appreciated * Start IV Solu-Medrol 40mg daily. * He has a history of A.fib. However, his rate has been difficult to control on this admission. Likely his alcohol withdrawal is contributing to his tachycardia. * Will add metoprolol 25mg BID and titrate. * His proBNP is elevated but with A.fib its hard to interpret. * Continue IV Lasix 40mg daily. * Continue IV heparin for AC * Continue Diltiazem 240mg daily. * Echocardiogram - pending * Continue Ativan 2mg q6 PO * IV Ativan per CIWA * Continue thiamine, folic acid, multivitamins * Monitor electrolytes and replete as needed. * Nicotine patch 14mg daily. * It appears that his surgery has been deferred for an elective procedure once he is more stable. * Diet: Heart Healthy. * DVT Prophylaxis: IV heparin * Code Status: Full Code Problem List: 1. Atrial fibrillation Pain Ratin Pain Location: none Pain Goal: Remain pain free Pain Plan: none Tomorrow's Labs & Rationales: CBC, BEP,Mg Rachelle Pitt 12/21/17 1211: Attending Review Statement Attending Statement Attending MD Statement: examined this patient, discuss w/resident/PA/GLASS LATHE OPERATOR, agreed w/resident/PA/GLASS LATHE OPERATOR, discussed with family, reviewed EMR data (avail), discussed with nursing, discussed with case mgmt, reviewed images, amended to note Attending Assessment/Plan: 62 y/o HTN, Diabetes, A.fib on pradaxa, Psoriatic arthritis on celebrex/fentanyl patch, JERRELL noncompliant with CPAP admitted to surgical service with abd pain, incarcerated umblical hernia which was reduced. Surgery was canceled and patient has been transferred to telemetry. Chest xray obtained suggestive of pulmonary edema. Patinet differentials for his shortness of breath differential include aspiration or chf exacerbation. Patient seen/examined bedside. He is aaox 2-3, sleepy, bp 154/88, on high flow oxygen. labs wbc stable. afebrile. agitated overnight. CIWA 16. Ativan per CIWA protocol. c/w folate, thiamine and multivitamin. Cardiology on board. c/w lasix 40 iv daily, monitor I/O. ECHO pending. Afib rate uncontrolled on cardizem 240 added low dose metoprolol today, treat underlying withdrawal would help rate control. Anticoaglaution with iv heparin in interim. Pradaxa post-op. Follow cardiology for further recs and if ok to go for surgery then inform surgical team/anesthesia. reuqesting Dr Benoit to see him. gi/dvt prophyalxis full code.
[2017-12-21 08:07] LABS: ABSOLUTE BASOPHIL COUNT 0 /CUMM (0.0-0.2); ABSOLUTE EOSINOPHIL COUNT 0.1 /CUMM (0.0-0.7); ABSOLUTE GRANULOCYTE CT 7.5 /CUMM (1.4-6.5); ABSOLUTE MONOCYTE COUNT 1.1 /CUMM (0.10-0.60); BASOPHIL % 0.4 % (0.0-2.0); EOSINOPHIL % 0.6 % (0-5); GRANULOCYTE % 77.7 % (42.2-75.2); HEMATOCRIT 43.6 % (42-52); MEAN CORPUSCULAR HGB 33.4 PG (27.0-31.0); MEAN CORPUSCULAR HGB CONC 33.6 G/DL (33.0-37.0); MEAN CORPUSCULAR VOLUME 99.4 FL (80.0-94.0); MEAN PLATELET VOLUME 8.5 FL (7.4-10.4); PLATELET COUNT 185 /CUMM (130-400); RBC DISTRIBUTION WIDTH 14.1 % (11.5-14.5); RED BLOOD CELL CT 4.39 /CUMM (4.70-6.10); WHITE BLOOD CELL COUNT 9.7 /CUMM (4.8-10.8)
[2017-12-21 08:36] LABS: PTT 57 SEC (25-37)
--- NOTE | 2017-12-21 09:06 | PN- General Surgery ---
Surgical Brief Attending Note Brief Attending Note: Patient seen and examined, overnight events noted. Active DTs with rapid A.fib, confused. Abd-soft, obese, reducible umbilical hernia. Given current clinical state, surgery is on hold right now. Once DTs have resolved and HR controlled ( patient is cleared), will re-evaluate for hernia repair prior to D/C vs electively.
--- NOTE | 2017-12-21 09:23 | PN- General Surgery ---
Subjective Subjective: Patient is confused at present and history is unable to be obtained. Overnight had issues with shortness of breath hypoxia and had to be restarted on high flow 02. He additionally became very agitated and a sitter was ordered. Persists with afib with RVR. No other issues from a general surgery standpoint. Objective Vital Signs and I&Os Vital Signs Date Time Temp Pulse Resp B/P B/P Pulse O2 O2 Flow FiO2 Mean Ox Delivery Rate 12/21 0747 108 158/80 12/21 0747 108 158/80 12/21 0642 98.3 108 20 158/80 95 Nasal Cannula 12/21 0500 93 Nasal 80% Cannula 12/21 0439 130 12/21 0000 90 Nasal 6.0L Cannula 12/20 2305 144/88 12/20 2141 103 190/118 12/20 2134 98.4 106 22 190/118 94 Nasal Cannula 12/20 1800 105 20 152/82 12/20 1722 105 152/82 12/20 1600 98.8 105 20 152/82 12/20 1439 98.8 105 20 152/82 95 Nasal 4.0L Cannula 12/20 1400 108 16 144/92 12/20 1340 108 16 144/92 12/20 1206 107 20 142/92 12/20 1206 107 20 142/92 96 Nasal 4.0L Cannula 12/20 1150 94 Nasal 4.0L Cannula 12/20 1021 133 22 140/92 12/20 1021 122 22 140/92 Intake & Output 12/21 1600 12/21 0800 15 0000 12/20 1600 12/20 0800 12/20 0000 Intake Total 704 481.5 755 90 110 Output Total 917 048 2113 500 250 Balance 454 -18.5 -1245 -410 -140 Intake, IV 304 59.5 155 90 50 Intake, Oral 400 422 600 60 Output, Urine 574 625 3259 500 250 Patient 314 lb 344 lb 359 lb Weight Weight Bed scale Measurement Method Physical Exam: General: A, A, Confused Abdomen: Obese, soft, non distended, non tender to palpation, easily reducible umbilical hernia with no overlying edema, erythema, ecchymosis, or induration Extremities: Chronic venous insufficiency changes Current Medications: Current Medications Sig/Pablo Start time Last Medication Dose Route Stop Time Status Admin Albuterol Sulfate 2 PUF Q4P PRN 12/19 1030 AC INH Albuterol Sulfate 3 ML Q4P PRN 12/19 1030 AC INH Allopurinol 300 MG DAILY 12/20 0900 AC 12/21 PO 0746 Atorvastatin Calcium 10 MG 1700 12/19 1700 AC 12/20 PO 1722 Budesonide/ 2 PUF BID 12/19 2100 AC 12/21 Formoterol Fumarate INH 0748 Clonidine 0.1 MG DAILY 12/20 1437 AC 12/21 PO 0747 Cyanocobalamin 250 MCG DAILY 12/20 0900 AC 12/21 PO 0746 Diltiazem HCl 240 MG DAILY 12/20 0900 AC 12/21 PO 0747 Docusate Sodium 100 MG DAILY 12/20 0900 AC 12/21 PO 0747 Fentanyl Citrate 100 MCG Q72 12/20 0900 AC 12/20 TOP 0758 Folic Acid 1 MG DAILY 12/20 0900 AC 12/21 PO 0747 Furosemide 40 MG .STK-MED ONE 12/20 1719 DC IV 12/20 1720 Furosemide 40 MG DAILY 12/20 0900 AC 12/21 IV 0746 Heparin Sodium 25,000 UNIT Q24H 12/20 1515 AC 12/20 (Porcine) IV 1722 Sodium Chloride 500 ML Heparin Sodium 5,000 UNIT Q8 12/20 1426 DC 12/20 (Porcine) SC 12/21 0000 1435 Insulin Aspart 0 TIDAC 12/21 0800 AC SC Insulin Aspart 0 TIDAC 12/20 1200 DC SC 12/21 0000 Insulin Human Regular 0 Q6 12/20 2359 DC SC Insulin Human Regular 0 Q6 12/19 2359 DC 12/20 SC 0657 Lisinopril 20 MG DAILY 12/20 0900 AC 12/21 PO 0747 Lorazepam 2 MG Q6 12/20 1200 AC 12/21 PO 0746 Lorazepam 0 Q1P PRN 12/20 0830 AC 12/21 IV 0907 Lorazepam 1 MG Q2 HRS NEEDED PRN 12/19 1030 AC 12/20 IV 0306 Magnesium Sulfate 1 GM ONCE ONE 12/20 1015 DC 12/20 Dextrose/Water 100 ML IV 12/20 1414 1126 Metoprolol Tartrate 25 MG BID 12/21 0900 AC 12/21 PO 0906 Morphine Sulfate 2 MG Q4P PRN 12/19 1030 AC 12/20 IV 1725 Multivitamins 1 TAB DAILY 12/20 0900 AC 12/21 PO 0747 Nicotine 14 MG Q24 12/20 0900 AC 12/21 TOP 0746 Ondansetron HCl 4 MG Q8P PRN 12/19 1030 AC IV Oxycodone HCl 20 MG 4 TIMES/DAY PRN 12/19 1030 AC 12/21 PO 0907 Potassium Chloride 40 MEQ ONCE ONE 12/20 1445 DC 12/20 PO 12/20 1446 1434 Potassium Chloride 10 MEQ DAILY 12/20 0900 AC 12/21 PO 0747 Thiamine HCl 100 MG DAILY 12/20 0900 AC 12/21 PO 0746 Results Last 48 Hours of Labs: Laboratory Tests 12/21 12/21 12/20 0805 0615 2355 Chemistry Sodium (137 - 145 mmol/L) 142 Potassium (3.5 - 5.1 mmol/L) 3.9 Chloride (98 - 107 mmol/L) 96 L Carbon Dioxide (22 - 30 mmol/L) 34 H Anion Gap (5 - 16) 12 BUN (9 - 20 mg/dL) 15 Creatinine (0.7 - 1.2 mg/dL) 0.6 L Estimated GFR (>60 ml/min) > 60 BUN/Creatinine Ratio (7 - 25 %) 25.0 Magnesium (1.6 - 2.3 mg/dL) 1.8 Coagulation APTT (25 - 37 SEC) 57 H 37 Hematology CBC w Diff NO MAN DIFF REQ WBC (4.8 - 10.8 /CUMM) 9.7 RBC (4.70 - 6.10 /CUMM) 4.39 L Hgb (14.0 - 18.0 G/DL) 14.6 Hct (42 - 52 %) 43.6 MCV (80.0 - 94.0 FL) 99.4 H MCH (27.0 - 31.0 PG) 33.4 H MCHC (33.0 - 37.0 G/DL) 33.6 RDW (11.5 - 14.5 %) 14.1 Plt Count (130 - 400 /CUMM) 185 MPV (7.4 - 10.4 FL) 8.5 Gran % (42.2 - 75.2 %) 77.7 H Lymphocytes % (20.5 - 51.1 %) 9.9 L Monocytes % (1.7 - 9.3 %) 11.4 H Eosinophils % (0 - 5 %) 0.6 Basophils % (0.0 - 2.0 %) 0.4 Absolute Granulocytes (1.4 - 6.5 /CUMM) 7.5 H Absolute Lymphocytes (1.2 - 3.4 /CUMM) 1.0 L Absolute Monocytes (0.10 - 0.60 /CUMM) 1.1 H Absolute Eosinophils (0.0 - 0.7 /CUMM) 0.1 Absolute Basophils (0.0 - 0.2 /CUMM) 0 12/20 12/19 12/19 0635 233 1450 Blood Gas pH (7.35 - 7.45 PH) 7.41 pCO2 (35 - 45 TORR) 54 H pO2 (80 - 100 TORR) 53 L HCO3 (21 - 28 MEQ/L) 34 H ABG O2 Sat (Measured) (>96.0 %) 85.0 L Carboxyhemoglobin (1.5 - 5.0 %) 1.6 O2 Concentration % 5L Temperature (97.0 - 100.0 FARH) 98.4 O2 Delivery Method NC Chemistry Sodium (137 - 145 mmol/L) 139 141 Potassium (3.5 - 5.1 mmol/L) 4.0 4.0 Chloride (98 - 107 mmol/L) 97 L 96 L Carbon Dioxide (22 - 30 mmol/L) 33 H 37 H Anion Gap (5 - 16) 10 8 BUN (9 - 20 mg/dL) 11 10 Creatinine (0.7 - 1.2 mg/dL) 0.5 L 0.5 L Estimated GFR (>60 ml/min) > 60 > 60 BUN/Creatinine Ratio (7 - 25 %) 22.0 20.0 Magnesium (1.6 - 2.3 mg/dL) 1.7 1.6 Qnj-D-Xbzhxaintum Pept (<125 pg/mL) 5980 H Hematology CBC w Diff NO MAN DIFF REQ WBC (4.8 - 10.8 /CUMM) 10.2 RBC (4.70 - 6.10 /CUMM) 4.37 L Hgb (14.0 - 18.0 G/DL) 14.3 Hct (42 - 52 %) 43.9 MCV (80.0 - 94.0 FL) 100.4 H MCH (27.0 - 31.0 PG) 32.8 H MCHC (33.0 - 37.0 G/DL) 32.7 L RDW (11.5 - 14.5 %) 14.1 Plt Count (130 - 400 /CUMM) 191 MPV (7.4 - 10.4 FL) 8.0 Gran % (42.2 - 75.2 %) 79.8 H Lymphocytes % (20.5 - 51.1 %) 9.3 L Monocytes % (1.7 - 9.3 %) 10.3 H Eosinophils % (0 - 5 %) 0.3 Basophils % (0.0 - 2.0 %) 0.3 Absolute Granulocytes (1.4 - 6.5 /CUMM) 8.2 H Absolute Lymphocytes (1.2 - 3.4 /CUMM) 1.0 L Absolute Monocytes (0.10 - 0.60 /CUMM) 1.1 H Absolute Eosinophils (0.0 - 0.7 /CUMM) 0 Absolute Basophils (0.0 - 0.2 /CUMM) 0 Miscellaneous Phlebotomy Draw Site RIGHT RADIAL Recent Imaging Studies: ECHO: Pending Assessment/Plan Assessment/Plan This is a 62 year old male with a PMHx signficant for afib, htn, dm, mo, hld, copd, trish, chronic pain, and etoh abuse who is admitted to the medical service with multiple acute and chronic issues, consulted to surgery for an umbilical hernia. From a surgical standpoint he is not medically stable to proceed for an elective case. He needs to be optimized medically before we proceed. We will sign off at this time. Please call us back once medically stable as we can consider laparoscopic umbilical hernia repair prior to discharge as there is concern for compliance/follow up. Thank you for allowing us to participate in this patients care. Please call with any problems, questions, concerns, or change in medical picture. Patient was seen and examined with Dr. Lynch who is in agreement with the plan of care. Core Measures Venous Thromboembolism VTE Risk Factors Surgery No Mechanical VTE Prophylaxis d/t N/A MechProphylax Ordered No VTE Pharm Prophylaxis d/t Surgical Contraindication
--- NOTE | 2017-12-21 09:31 | PN- Cardiology ---
Subjective Subjective: Patient is confused but without specific complaints Review of Systems: Eyes no blurred or double vision Ears no deafness or ringing Nose and throat no recurrent sinusitis Lungs per history of present illness Heart per history of present illness Abdomen no nausea vomiting Musculoskeletal occasional muscle and joint pains Psych no anxiety or depression Neuro without recurrent headache or seizures Endocrine no heat or cold intolerance Objective Vital Signs and I&Os Vital Signs Date Time Temp Pulse Resp B/P B/P Pulse O2 O2 Flow FiO2 Mean Ox Delivery Rate 12/21 0906 108 158/80 12/21 0747 108 158/80 12/21 0747 108 158/80 12/21 0642 98.3 108 20 158/80 95 Nasal Cannula 12/21 0500 93 Nasal 80% Cannula 12/21 0439 130 12/21 0000 90 Nasal 6.0L Cannula 12/20 2305 144/88 12/20 2141 103 190/118 12/20 2134 98.4 106 22 190/118 94 Nasal Cannula 12/20 1800 105 20 152/82 12/20 1722 105 152/82 12/20 1600 98.8 105 20 152/82 12/20 1439 98.8 105 20 152/82 95 Nasal 4.0L Cannula 12/20 1400 108 16 144/92 12/20 1340 108 16 144/92 12/20 1206 107 20 142/92 12/20 1206 107 20 142/92 96 Nasal 4.0L Cannula 12/20 1150 94 Nasal 4.0L Cannula 12/20 1021 133 22 140/92 12/20 1021 122 22 140/92 Intake & Output 12/21 1600 12/21 0800 12/21 0000 12/20 1600 12/20 0800 12/20 0000 Intake Total 704 481.5 755 90 110 Output Total 411 147 4213 500 250 Balance 454 -18.5 -1245 -410 -140 Intake, IV 304 59.5 155 90 50 Intake, Oral 400 422 600 60 Output, Urine 058 024 5526 500 250 Patient 314 lb 344 lb 359 lb Weight Weight Bed scale Measurement Method Physical Exam: Patient is a well-developed well-nourished male appearing in no acute distress HEENT is unremarkable Neck is supple there is no JVD Lungs are clear Heart irregular rhythm S1 and S2 are normal no murmurs gallops or rubs Abdomen bowel sounds positive Extremities without edema Current Medications: Current Medications Sig/Pablo Start time Last Medication Dose Route Stop Time Status Admin Albuterol Sulfate 2 PUF Q4P PRN 12/19 1030 AC INH Albuterol Sulfate 3 ML Q4P PRN 12/19 1030 AC INH Allopurinol 300 MG DAILY 12/20 0900 AC 12/21 PO 0746 Atorvastatin Calcium 10 MG 1700 12/19 1700 AC 12/20 PO 1722 Budesonide/ 2 PUF BID 12/19 2100 AC 12/21 Formoterol Fumarate INH 0748 Clonidine 0.1 MG DAILY 12/20 1437 AC 12/21 PO 0747 Cyanocobalamin 250 MCG DAILY 12/20 0900 AC 12/21 PO 0746 Diltiazem HCl 240 MG DAILY 12/20 0900 AC 12/21 PO 0747 Docusate Sodium 100 MG DAILY 12/20 0900 AC 12/21 PO 0747 Fentanyl Citrate 100 MCG Q72 12/20 0900 AC 12/20 TOP 0758 Folic Acid 1 MG DAILY 12/20 0900 AC 12/21 PO 0747 Furosemide 40 MG .STK-MED ONE 12/20 1719 DC IV 12/20 1720 Furosemide 40 MG DAILY 12/20 0900 AC 12/21 IV 0746 Heparin Sodium 25,000 UNIT Q24H 12/20 1515 AC 12/20 (Porcine) IV 1722 Sodium Chloride 500 ML Heparin Sodium 5,000 UNIT Q8 12/20 1426 DC 12/20 (Porcine) SC 12/21 0000 1435 Insulin Aspart 0 TIDAC 12/21 0800 AC SC Insulin Aspart 0 TIDAC 12/20 1200 DC SC 12/21 0000 Insulin Human Regular 0 Q6 12/20 2359 DC SC Insulin Human Regular 0 Q6 12/19 2359 DC 12/20 SC 0657 Lisinopril 20 MG DAILY 12/20 0900 AC 12/21 PO 0747 Lorazepam 2 MG Q6 12/20 1200 AC 12/21 PO 0746 Lorazepam 0 Q1P PRN 12/20 0830 AC 12/21 IV 0907 Lorazepam 1 MG Q2 HRS NEEDED PRN 12/19 1030 AC 12/20 IV 0306 Magnesium Sulfate 1 GM ONCE ONE 12/20 1015 DC 12/20 Dextrose/Water 100 ML IV 12/20 1414 1126 Metoprolol Tartrate 25 MG BID 12/21 0900 AC 12/21 PO 0906 Morphine Sulfate 2 MG Q4P PRN 12/19 1030 AC 12/20 IV 1725 Multivitamins 1 TAB DAILY 12/20 09 AC 12/21 PO 0747 Nicotine 14 MG Q24 12/20 09 AC 12/21 TOP 0746 Ondansetron HCl 4 MG Q8P PRN 12/19 1030 AC IV Oxycodone HCl 20 MG 4 TIMES/DAY PRN 12/19 1030 AC 12/21 PO 0907 Potassium Chloride 40 MEQ ONCE ONE 12/20 1445 DC 12/20 PO 12/20 1446 1434 Potassium Chloride 10 MEQ DAILY 12/20 09 AC 12/21 PO 0747 Thiamine HCl 100 MG DAILY 12/20 09 AC 12/21 PO 0746 Results Last 48 Hrs of Labs/Mics: Laboratory Tests 12/21/17 0805: APTT 57 H 12/21/17 0615: Anion Gap 12, Estimated GFR > 60, BUN/Creatinine Ratio 25.0, Magnesium 1.8, CBC w Diff NO MAN DIFF REQ, RBC 4.39 L, MCV 99.4 H, MCH 33.4 H, MCHC 33.6, RDW 14.1, MPV 8.5, Gran % 77.7 H, Lymphocytes % 9.9 L, Monocytes % 11.4 H, Eosinophils % 0.6, Basophils % 0.4, Absolute Granulocytes 7.5 H, Absolute Lymphocytes 1.0 L, Absolute Monocytes 1.1 H, Absolute Eosinophils 0.1, Absolute Basophils 0 12/20/17 2355: APTT 37 12/20/17 0635: Anion Gap 10, Estimated GFR > 60, BUN/Creatinine Ratio 22.0, Magnesium 1.7, Pro- B-Natriuretic Pept 5980 H, CBC w Diff NO MAN DIFF REQ, RBC 4.37 L, MCV 100.4 H, MCH 32.8 H, MCHC 32.7 L, RDW 14.1, MPV 8.0, Gran % 79.8 H, Lymphocytes % 9.3 L, Monocytes % 10.3 H, Eosinophils % 0.3, Basophils % 0.3, Absolute Granulocytes 8.2 H, Absolute Lymphocytes 1.0 L, Absolute Monocytes 1.1 H, Absolute Eosinophils 0, Absolute Basophils 0 12/19/17 2335: pH 7.41, pCO2 54 H, pO2 53 L, HCO3 34 H, ABG O2 Sat (Measured) 85.0 L, Carboxyhemoglobin 1.6, O2 Concentration % 5L, Temperature 98.4, O2 Delivery Method NC, Phlebotomy Draw Site RIGHT RADIAL 12/19/17 1450: Anion Gap 8, Estimated GFR > 60, BUN/Creatinine Ratio 20.0, Magnesium 1.6 Telemetry personally reviewed atrial fibrillation with rapid ventricular response Assessment/Plan Assessment/Plan #1. Persistent atrial fibrillation on Pradaxa currently on hold with rapid ventricular response most likely secondary to alcohol withdrawal #2. Diabetes #3. Hypertension #4. Obstructive sleep apnea #5. Periumbilical hernia requiring surgical intervention #6. Alcohol abuse with DTs Recommendations #1. I would continue diltiazem but add low-dose metoprolol #2. Once his heart rate stabilized and his DTs have resolved plan is for surgical repair of his umbilical hernia #2. Would resume Pradaxa postoperatively for stroke prevention Continue telemetry? Yes
--- NOTE | 2017-12-21 14:07 | Cons- Pulmonary ---
General Information and HPI Consulting Request Date of Consult: 12/21/17 Requested By: Yoselin Reason for Consult: Acute hypoxic respiratory failureAcute hypoxic respiratory failure History of Present Illness: Patient is a 62-year-old with history of moderate COPD not on oxygen obstructive sleep apnea atrial fibrillation on anticoagulation admitted for an incarcerated hernia which has been reduced . He has developed acute He has developed acute hypoxic respiratory and has become confused thought secondary to alcohol withdrawal chest x-ray suggests the development of interstitial pulmonary edema associated with a BMP of greater than 5000. Allergies/Medications Allergies: Coded Allergies: NO KNOWN ALLERGIES (10/26/16) Home Med List: Albuterol Sulfate (Ventolin Hfa) 90 MCG HFA.AER.AD 2 PUF INH Q4-6 PRN PRN WHEEZE/COUGH Allopurinol 300 MG TABLET 1 TAB PO DAILY GOUT (Reported) Alprazolam (Xanax) 0.5 MG TABLET 1 TAB PO BIDP PRN ANXIETY (Reported) Budesonide/Formoterol Fumarate (Symbicort 160-4.5 Mcg Inhaler) 160 MCG-4.5 MCG/ ACTUATION HFA.AER.AD 2 PUF INH BID COPD (Reported) Cyanocobalamin (Vitamin B-12) (Vitamin B-12) 250 MCG TABLET 1 TAB PO DAILY VITAMIN SUPPORT (Reported) Diltiazem HCl (Cardizem Cd) 180 MG CAP.ER.24H 1 CAP PO DAILY Heart (Reported) Fentanyl Citrate (Duragesic) 75 MCG/HOUR PATCH.TD72 1 PAT TOP Q48 PAIN ( Reported) Furosemide 20 MG TABLET 1 TAB PO DAILY LEG SWELLING (Reported) Levofloxacin (Levaquin) 500 MG TABLET 1 TAB PO DAILY BRONCHITIS Lisinopril/Hydrochlorothiazide (Lisinopril-Hctz 20-25 MG Tab) 20 MG-25 MG TABLET 1 TAB PO DAILY HTN (Reported) Oxycodone HCl 30 MG TABLET 1 TAB PO Q4 PAIN (Reported) Review of Systems Review of Systems Constitutional: Denies: chills, fever. Cardiovascular: Denies: chest pain. Respiratory: Reports: short of breath. Denies: cough, hemoptysis. GI: Denies: abdominal pain, diarrhea, melena. Past History Travel History Traveled to [place] past 21 day No Medical History Blood Transfusion Hx: No Neurological: NONE EENT: NONE Cardiovascular: AFIB, hypertension Respiratory: COPD Gastrointestinal: NONE Hepatic: NONE Renal: NONE Musculoskeletal: ARTHRITIS Psychiatric: NONE Endocrine: diabetes Blood Disorders: NONE Cancer(s): NONE PROTECTION ANALYST/Reproductive: NONE Surgical History Surgical History: non-contributory Family History Relations & Conditions If Any: FATHER Relation not specified for: FH: COPD (chronic obstructive pulmonary disease) FH: diabetes mellitus FH: esophageal cancer FH: Rosibel Gehrig's disease Psychosocial History Where Do You Live? Home Who Do You Live With? spouse Services at Home: None Smoking Status: Current Everyday Smoker ETOH Use: heavy use Illicit Drug Use: denies illicit drug use Functional Ability ADLs Independent: dressing, eating, toileting, bathing. Ambulation: independent IADLs Independent: shopping, housework, finances, food prep, telephone, transportation , medication admin. Exam & Diagnostic Data Last 24 Hrs of Vital Signs/I&O Vital Signs Date Time Temp Pulse Resp B/P B/P Pulse O2 O2 Flow FiO2 Mean Ox Delivery Rate 12/21 1149 94 Nasal 80% Cannula 12/21 0906 108 158/80 12/21 0820 94 Nasal 80% Cannula 12/21 0800 Nasal 80% Cannula 12/21 0747 108 158/80 12/21 0747 108 158/80 12/21 0642 98.3 108 20 158/80 95 Nasal Cannula 12/21 0500 93 Nasal 80% Cannula 12/21 0439 130 12/21 0000 90 Nasal 6.0L Cannula 12/20 2305 144/88 12/20 2141 103 190/118 12/20 2134 98.4 106 22 190/118 94 Nasal Cannula 12/20 1800 105 20 152/82 12/20 1722 105 152/82 12/20 1600 98.8 105 20 152/82 12/20 1439 98.8 105 20 152/82 95 Nasal 4.0L Cannula Intake & Output 12/21 1600 12/21 0800 12/21 0000 Intake Total 704 481.5 Output Total 250 500 Balance 454 -18.5 Intake, IV 304 59.5 Intake, Oral 400 422 Output, Urine 250 500 Patient 314 lb Weight Patient is conversant but confused on high flow nasal oxygen which was on high flow nasal oxygen which was out of place HEENT exam shows no jugular venous distention. Exam of his chest shows inspiratory and expiratory wheezing cardiac exam shows an irregular rhythm abdomen is soft nontender bowel sounds are present extremities have trace edema Last 48 Hrs of Labs/Timothy: Laboratory Tests 12/21/17 0805: APTT 57 H 12/21/17 0615: Anion Gap 12, Estimated GFR > 60, BUN/Creatinine Ratio 25.0, Magnesium 1.8, CBC w Diff NO MAN DIFF REQ, RBC 4.39 L, MCV 99.4 H, MCH 33.4 H, MCHC 33.6, RDW 14.1, MPV 8.5, Gran % 77.7 H, Lymphocytes % 9.9 L, Monocytes % 11.4 H, Eosinophils % 0.6, Basophils % 0.4, Absolute Granulocytes 7.5 H, Absolute Lymphocytes 1.0 L, Absolute Monocytes 1.1 H, Absolute Eosinophils 0.1, Absolute Basophils 0 12/20/17 2355: APTT 37 12/20/17 0635: Anion Gap 10, Estimated GFR > 60, BUN/Creatinine Ratio 22.0, Magnesium 1.7, Pro- B-Natriuretic Pept 5980 H, CBC w Diff NO MAN DIFF REQ, RBC 4.37 L, MCV 100.4 H, MCH 32.8 H, MCHC 32.7 L, RDW 14.1, MPV 8.0, Gran % 79.8 H, Lymphocytes % 9.3 L, Monocytes % 10.3 H, Eosinophils % 0.3, Basophils % 0.3, Absolute Granulocytes 8.2 H, Absolute Lymphocytes 1.0 L, Absolute Monocytes 1.1 H, Absolute Eosinophils 0, Absolute Basophils 0 12/19/17 2335: pH 7.41, pCO2 54 H, pO2 53 L, HCO3 34 H, ABG O2 Sat (Measured) 85.0 L, Carboxyhemoglobin 1.6, O2 Concentration % 5L, Temperature 98.4, O2 Delivery Method NC, Phlebotomy Draw Site RIGHT RADIAL 12/19/17 1450: Anion Gap 8, Estimated GFR > 60, BUN/Creatinine Ratio 20.0, Magnesium 1.6 Assessment/Plan Impression/Plan: 8-year-old gentleman with COPD obesity sleep apnea atrial [id number]- old gentleman with COPD obesity sleep apnea atrial fibrillation admitted for incarcerated hernia which has been reduced and is developed acute on chronic hypoxic respiratory failure in the setting of chronic hypercapnic respiratory failure . Chest x-ray and BMP suggested a Chest x-ray and BMP suggest a superimposed component of congestive heart failure. Recommendations: Obtain arterial blood gas. Continue negative fluid balance begin IV steroids for bronchospasm. Patient may benefit from BiPAP . Minimize narcotic administration . Management of alcohol withdrawal by primary care team. Consult Acknowledgment - Thank you for your consult request.
[2017-12-21 14:26] VITALS: BP 150/100
[2017-12-21 15:50] LABS: PTT 82 SEC (25-37)
[2017-12-21 17:22] VITALS: BP 140/90
[2017-12-21 23:12] VITALS: BP 142/86
[2017-12-22] VITALS (10 sets, daily range): BP systolic 120–150; BP diastolic 86–98
[2017-12-22 02:27] LABS: PTT 56 SEC (25-37)
--- NOTE | 2017-12-22 07:08 | PN- Housestaff ---
Pallavi HARVEY,[facility] 12/22/17 0707: Subjective Follow-up For: Bhumika/DTs umbilical hernia acute hypoxic respiratory failure Tele-Events Since Last Visit: Bhumika with HR 84-115 Subjective: Patient was seen and examined at bedside. Feels better but sore. Was on the BiPAP overnight. Does not offer any complaints. Review of Systems Constitutional: Reports: no symptoms. Objective Last 24 Hrs of Vital Signs/I&O Vital Signs Date Time Temp Pulse Resp B/P B/P Pulse O2 O2 Flow FiO2 Mean Ox Delivery Rate 12/22 0624 112 20 144/98 93 BIPAP 80% 12/22 0555 109 96 12/22 0240 81 95 12/22 0043 82 95 12/21 2312 97.8 97 24 142/86 95 12/21 2200 BIPAP 80% 12/21 2053 86 152/92 12/21 2000 90 95 12/21 1722 105 22 140/90 97 Nasal Cannula 12/21 1600 100 94 12/21 1600 94 BIPAP 80% 12/21 1426 98.1 87 20 150/100 90 Nasal Cannula 12/21 1420 89 96 12/21 1149 94 Nasal 80% Cannula 12/21 0906 108 158/80 12/21 0820 94 Nasal 80% Cannula 12/21 0800 Nasal 80% Cannula 12/21 0747 108 158/80 12/21 0747 108 158/80 Intake & Output 12/22 0800 12/22 0000 12/21 1600 Intake Total 675 239.2 720 Output Total 475 325 500 Balance 200 -85.8 220 Intake, IV 375 89.2 320 Intake, Oral 300 150 400 Output, Urine 475 325 500 Patient 342 lb Weight Weight Bed scale Measurement Method Physical Exam General Appearance: Alert, Oriented X3, Cooperative, Mild Distress Skin: No Rashes, No Breakdown Skin Temp/Moisture Exam: Warm/Dry Sepsis Skin Exam (color): Normal for Ethnicity HEENT: Atraumatic Cardiovascular: Normal S1, Normal S2, No Murmurs Lungs: Normal Air Movement Abdomen: Soft, No Tenderness Neurological: Normal Speech Extremities: No Edema Last 24 Hrs of Lab/Timothy Results Last 24 Hrs of Labs/Mics: Laboratory Tests 12/22/17 0615: Sodium Pending, Potassium Pending, Chloride Pending, Carbon Dioxide Pending, Anion Gap Pending, BUN Pending, Creatinine Pending, BUN/Creatinine Ratio Pending , Magnesium Pending, CBC w Diff Pending, WBC Pending, RBC Pending, Hgb Pending, Hct Pending, MCV Pending, MCH Pending, MCHC Pending, RDW Pending, Plt Count Pending, MPV Pending 12/22/17 0155: APTT 56 H 12/21/17 1410: APTT 82 H 12/21/17 1355: pH 7.41, pCO2 57 H, pO2 69 L, HCO3 35 H, ABG O2 Sat (Measured) 91.0 L, Carboxyhemoglobin 1.6, O2 Concentration % 80%, O2 Delivery Method HFNC, 45L FLOW , Phlebotomy Draw Site RIGHT RADIAL 12/21/17 0805: APTT 57 H Assessment/Plan Assessment: 62 YO M with PMH significant for COPD, A.fib on pradaxa, JERRELL (not compliant with CPAP), Psoriatic arthritis, Venous insufficiency, regular alcohol consumption, HTN presented to [facility] after developing abdominal pain this evening. Assessment: 1. Acute Hypoxic Respiratory Failure with Chronic Hypercapnic Respiratory Failure 2. Umbilical Hernia 3. Alcohol Detox 4. Atrial Fibrilliation with RVR 5. History of COPD 6. History of JERRELL Plan: * Continue oxygen supplementation to maintain target sats > 92%. Was on BiPAP overnight on which he did well. Switched to 2L NC in the morning. Would likely require BiPAP again at night. * TRC/Nebs as needed. * Pulm recs appreciated * D/C SoluMedrol after today. Prednisone 40mg from tomorrow. * Rate has been well controlled overnight. * Continue metoprolol 25mg BID. * Continue IV Lasix 40mg daily. * Continue IV heparin for AC * Continue Diltiazem 240mg daily. * Echocardiogram - Normal left and right ventricular systolic function. Moderate mitral regurgitation. * Reduce Ativan 2mg q8 PO * IV Ativan per CIWA * Continue thiamine, folic acid, multivitamins * Monitor electrolytes and replete as needed. * Nicotine patch 14mg daily. * Surgery when medically stable. Patient's family wishes to pursue it with Dr Smith. He may be medically stable by Wednesday for surgery if continues to improve. * Diet: Heart Healthy. * DVT Prophylaxis: IV heparin * Code Status: Full Code Problem List: 1. Atrial fibrillation Pain Ratin Pain Location: none Pain Goal: Remain pain free Pain Plan: none Tomorrow's Labs & Rationales: CBC, BEP, Mg Rachelle Pitt 12/22/17 1000: Attending MD Review Statement Attending Statement Attending MD Statement: examined this patient, discuss w/resident/PA/TREER, agreed w/resident/PA/TREER, discussed with family, reviewed EMR data (avail), discussed with nursing, discussed with case mgmt, reviewed images, amended to note Attending Assessment/Plan: 62 y/o HTN, Diabetes, A.fib on pradaxa, Psoriatic arthritis on celebrex/fentanyl patch, JERRELL noncompliant with CPAP admitted to surgical service with abd pain, incarcerated umblical hernia which was reduced. Surgery was canceled and patient has been transferred to telemetry. Chest xray obtained suggestive of pulmonary edema. His shortenss of breath is significantly improved with use of NIPPV. Patient seen/examined bedside. He is aaox 3, bp 120/80, 2-3nc. labs wbc stable. afebrile. agitated overnight. CIWA 0-4 Ativan per CIWA protocol. c/w folate, thiamine and multivitamin. Cardiology on board. c/w lasix 40 PO daily, monitor I/O. ECHO with preserved EF. Afib rate controlled on cardizem 240 + metoprolol, treat underlying withdrawal would help rate control. Anticoaglaution with iv heparin in interim. Pradaxa post-op. JERRELL pulm appreciated . cpap at night non compliant. Follow cardiology for further recs and if ok to go for surgery then inform surgical team/anesthesia. requesting Dr Benoit to see him. Patient is moderate to high risk for moderate risk surgery. gi/dvt prophyalxis full code.
--- NOTE | 2017-12-22 07:48 | ECHOCARDIOGRAM REPORT ---
ELAINE KNAPP Age: 62 : 1955 Gender: M Exam Date: 12/21/2017 19:12 Exam Location: 1 [address] Ht (in): 76 Wt (lb): 344 BSA: 2.95 BP: 154 / 100 Ordering Physician: Jesús Olivo MD Referring Physician: Harmeet Arce MD Technologist: Maryanne De La Vega [facility] Room Number: 177 Indications: AFIB/FLUTTER Rhythm: Atrial fibrillation Technical Quality: poor FINDINGS Left Ventricle Normal size left ventricle. Left ventricular wall thickness moderately increased. Normal left ventricular ejection fraction estimated at 55-60%. Right Ventricle Normal right ventricular size and function. Right Atrium Mild to moderate right atrial dilatation. Left Atrium Moderate to severe left atrial dilatation. Mitral Valve Mild mitral annular calcification. Moderate mitral regurgitation. Aortic Valve Aortic valve not well visualized, grossly normal. Tricuspid Valve Tricuspid valve is normal in structure and function. Mild tricuspid regurgitation. Right ventricular systolic pressure estimated to be at upper limits of normal at 30 mmHg. Pulmonic Valve Pulmonic valve not well visualized, grossly normal. Pericardium Minimal pericardial effusion (normal variant). Great Vessels Normal size aortic root and proximal ascending aorta. CONCLUSIONS Normal left and right ventricular systolic function. Moderate LVH. Biatrial enlargement. Moderate Mitral regurgitation. Adriano Saldana M.D. (Electronically Signed) Final Date: 22 Dec 2017 07:47 MEASUREMENTS (Male / Female) Normal Values 2D ECHO LV Diastolic Diameter PLAX 4.6 cm 4.2 - 5.9 / 3.9 - 5.3 cm LV Systolic Diameter PLAX 3.2 cm 2.1 - 4.0 cm LV Fractional Shortening PLAX 30.4 % 25 - 46 % LV Ejection Fraction 2D Teich 57.9 % IVS Diastolic Thickness 1.6 cm LVPW Diastolic Thickness 1.6 cm LV Relative Wall Thickness 0.7 RV Internal Dim ED PLAX 3.8 cm 1.9 - 3.8 cm LVOT Diameter 2.2 cm Aortic Root Diameter 3.6 cm LA Systolic Diameter LX 6.7 cm 3.0 - 4.0 / 2.7 - 3.8 cm LA Volume 138.0 cm 18 - 58 / 22 - 52 cm Ascending Aorta Diameter 2.9 cm DOPPLER AV Peak Velocity 174.0 cm/s AV Peak Gradient 12.1 mmHg AV Mean Velocity 124.0 cm/s AV Mean Gradient 7.0 mmHg AV Velocity Time Integral 36.2 cm LVOT Peak Velocity 94.0 cm/s LVOT Peak Gradient 3.5 mmHg LVOT Mean Velocity 64.3 cm/s LVOT Mean Gradient 2.0 mmHg LVOT Velocity Time Integral 18.1 cm LVOT Stroke Volume 68.8 cm AV Area Cont Eq vti 1.9 cm AV Area Cont Eq pk 2.1 cm MV Peak Velocity 95.8 cm/s MV Peak Gradient 3.7 mmHg MV Mean Velocity 48.5 cm/s MV Mean Gradient 1.0 mmHg Mitral E Point Velocity 96.3 cm/s MV PHT Velocity 98.4 cm/s MV Deceleration [place] 451.0 cm/s MV Pressure Half Time 65.5 ms MV Area PHT 3.4 cm MV Deceleration Time 232.0 ms TR Peak Velocity 245.0 cm/s TR Peak Gradient 24.0 mmHg Right Atrial Pressure 5.0 mmHg Pulmonary Artery Systolic Pressu 29.0 mmHg Right Ventricular Systolic Press 29.0 mmHg PV Peak Velocity 82.7 cm/s PV Peak Gradient 2.7 mmHg PV Mean Velocity 59.3 cm/s PV Mean Gradient 2.0 mmHg PV Velocity Time Integral 17.2 cm LV E' Lateral Velocity 9.4 cm/s Mitral E to LV E' Lateral Ratio 10.3 LV E' Septal Velocity 8.8 cm/s Mitral E to LV E' Septal Ratio 11.0
[2017-12-22 08:07] LABS: ABSOLUTE BASOPHIL COUNT 0 /CUMM (0.0-0.2); ABSOLUTE EOSINOPHIL COUNT 0 /CUMM (0.0-0.7); ABSOLUTE GRANULOCYTE CT 6.7 /CUMM (1.4-6.5); ABSOLUTE LYMPH COUNT 0.7 /CUMM (1.2-3.4); ABSOLUTE MONOCYTE COUNT 0.5 /CUMM (0.10-0.60); BASOPHIL % 0.2 % (0.0-2.0); EOSINOPHIL % 0.1 % (0-5); HEMATOCRIT 44.8 % (42-52); MEAN CORPUSCULAR HGB CONC 33.3 G/DL (33.0-37.0); MEAN CORPUSCULAR VOLUME 99.2 FL (80.0-94.0); MEAN PLATELET VOLUME 8.3 FL (7.4-10.4); PLATELET COUNT 222 /CUMM (130-400); RBC DISTRIBUTION WIDTH 14.2 % (11.5-14.5); RED BLOOD CELL CT 4.51 /CUMM (4.70-6.10)
--- NOTE | 2017-12-22 08:48 | PN- Pulmonary ---
Subjective HPI/Critical Care Issues: Patient is awake alert shortness breath is markedly improved oxygenation is improved Objective Current Medications: Current Medications Sig/Pablo Start time Last Medication Dose Route Stop Time Status Admin Albuterol Sulfate 2 PUF Q4P PRN 12/19 1030 AC INH Albuterol Sulfate 3 ML Q4P PRN 12/19 1030 AC INH Allopurinol 300 MG DAILY 12/20 0900 AC 12/22 PO 0746 Atorvastatin Calcium 10 MG 1700 12/19 1700 AC 12/21 PO 1734 Bisacodyl 5 MG DAILY PRN 12/21 1615 AC 12/22 PO 0746 Budesonide/ 2 PUF BID 12/19 2100 AC 12/22 Formoterol Fumarate INH 0757 Clonidine 0.1 MG DAILY 12/20 1437 DC 12/22 PO 0745 Cyanocobalamin 250 MCG DAILY 12/20 0900 AC 12/22 PO 0746 Diltiazem HCl 240 MG DAILY 12/20 0900 AC 12/22 PO 0745 Docusate Sodium 100 MG DAILY NEEDED PRN 12/21 1615 AC PO Docusate Sodium 100 MG DAILY 12/20 0900 AC 12/22 PO 0746 Fentanyl Citrate 100 MCG Q72 12/20 0900 AC 12/20 TOP 0758 Folic Acid 1 MG DAILY 12/20 0900 AC 12/22 PO 0746 Furosemide 40 MG DAILY 12/20 0900 AC 12/22 IV 0746 Heparin Sodium 6,200 UNIT ONCE ONE 12/22 0315 DC 12/22 (Porcine) IV 12/22 0316 0315 Heparin Sodium 25,000 UNIT .STK-MED ONE 12/21 2246 DC (Porcine) IV 12/21 2247 Heparin Sodium 5,700 UNIT ONCE ONE 12/21 1100 DC 12/21 (Porcine) IV 12/21 1101 1128 Heparin Sodium 25,000 UNIT .STK-MED ONE 12/21 1047 DC (Porcine) IV 12/21 1048 Heparin Sodium 25,000 UNIT Q24H 12/20 1515 AC 12/21 (Porcine) IV 2248 Sodium Chloride 500 ML Insulin Aspart 0 TIDAC 12/21 0800 AC SC Lisinopril 20 MG DAILY 12/20 0900 AC 12/22 PO 0746 Lorazepam 2 MG Q8 12/22 1400 AC PO Lorazepam 2 MG Q6 12/20 1200 DC 12/22 PO 0547 Lorazepam 0 Q1P PRN 12/20 0830 AC 12/21 IV 0907 Lorazepam 1 MG Q2 HRS NEEDED PRN 12/19 1030 DC 12/20 IV 0306 Methylprednisolone 40 MG DAILY 12/21 1534 AC 12/22 IV 0747 Metoprolol Tartrate 25 MG BID 12/21 0900 AC 12/22 PO 0746 Morphine Sulfate 2 MG Q4P PRN 12/19 1030 AC 12/20 IV 1725 Multivitamins 1 TAB DAILY 12/20 0900 AC 12/22 PO 0746 Nicotine 14 MG Q24 12/20 0900 AC 12/22 TOP 0745 Ondansetron HCl 4 MG Q8P PRN 12/19 1030 AC IV Oxycodone HCl 20 MG 4 TIMES/DAY PRN 12/19 1030 AC 12/22 PO 0757 Potassium Chloride 10 MEQ DAILY 12/20 0900 AC 12/22 PO 0746 Senna 187 MG AT BEDTIME 12/21 2100 AC 12/21 PO 2053 Thiamine HCl 100 MG DAILY 12/20 0900 AC 12/22 PO 0746 Vital Signs & I&O Last 24 Hrs of Vitals and I&O: Vital Signs Date Time Temp Pulse Resp B/P B/P Pulse O2 O2 Flow FiO2 Mean Ox Delivery Rate 12/22 0800 Nasal 4.0L Cannula 12/22 0800 97.8 103 20 120/86 12/22 0746 65 120/86 12/22 0746 65 120/86 12/22 0745 65 120/86 12/22 0744 65 120/86 12/22 0624 112 20 144/98 93 BIPAP 80% 12/22 0555 109 96 12/22 0240 81 95 12/22 0043 82 95 12/21 2312 97.8 97 24 142/86 95 12/21 2200 BIPAP 80% 12/21 2053 86 152/92 12/21 2000 90 95 12/21 1722 105 22 140/90 97 Nasal Cannula 12/21 1600 100 94 12/21 1600 94 BIPAP 80% 12/21 1426 98.1 87 20 150/100 90 Nasal Cannula 12/21 1420 89 96 12/21 1149 94 Nasal 80% Cannula 12/21 0906 108 158/80 Intake & Output 12/22 1600 12/22 0800 12/22 0000 Intake Total 675 239.2 Output Total 475 325 Balance 200 -85.8 Intake, IV 375 89.2 Intake, Oral 300 150 Output, Urine 475 325 Patient 342 lb Weight Weight Bed scale Measurement Method Oxygen saturation nasal oxygen 99% exam of his chest shows diminished breath sounds there are no wheezes cardiac exam shows a regular rhythm Impression/Plan Impression/Plan Impression/Plan: 62-year-old with chronic hypercapnic respiratory failure developed acute hypoxic respiratory failure secondary to congestive heart failure. He is clinically improved. Recommendations: Taper FiO2 with improved saturations. DC IV Solu-Medrol begin oral prednisone. Continue nocturnal BiPAP. Repeat chest x-ray.
[2017-12-22 09:17] LABS: WHITE BLOOD CELL COUNT 7.9 /CUMM (4.8-10.8)
[2017-12-22 10:08] LABS: PTT 91 SEC (25-37)
--- NOTE | 2017-12-22 11:08 | PN- Cardiology ---
Subjective Subjective: Patient is resting comfortably without complaints this morning. Objective Vital Signs and I&Os Vital Signs Date Time Temp Pulse Resp B/P B/P Pulse O2 O2 Flow FiO2 Mean Ox Delivery Rate 12/22 0900 96 Nasal 2.0L Cannula 12/22 0800 Nasal 4.0L Cannula 12/22 08 97.8 103 20 120/86 12/22 0746 65 120/86 12/22 0746 65 120/86 12/22 0745 65 120/86 12/22 0744 65 120/86 12/22 0624 112 20 144/98 93 BIPAP 80% 12/22 0555 109 96 12/22 0240 81 95 12/22 0043 82 95 12/21 2312 97.8 97 24 142/86 95 12/21 2200 BIPAP 80% 12/21 2053 86 152/92 12/21 2000 90 95 12/21 1722 105 22 140/90 97 Nasal Cannula 12/21 1600 100 94 12/21 1600 94 BIPAP 80% 12/21 1426 98.1 87 20 150/100 90 Nasal Cannula 12/21 1420 89 96 12/21 1149 94 Nasal 80% Cannula Intake & Output 12/22 1600 12/22 0800 12/22 0000 12/21 1600 12/21 0800 12/21 0000 Intake Total 675 239.2 720 704 481.5 Output Total 475 325 500 250 500 Balance 200 -85.8 220 454 -18.5 Intake, IV 375 89.2 320 304 59.5 Intake, Oral 300 150 400 400 422 Output, Urine 475 325 500 250 500 Patient 342 lb 314 lb Weight Weight Bed scale Measurement Method Physical Exam: General: no apparent distress. Alert. Overweight Eyes: No obvious scleral icterus. HEENT: No jugular venous distention or abnormal jugular venous pulsations. Cardiovascular: Normal intensity S1/S2. Irregular Respiratory: Lungs clear to auscultation bilaterally. Abdomen: Soft, nontender with no guarding or rebound tenderness. Musculoskeletal: No clubbing or cyanosis noted, no edema Skin: warm Neurologic: No gross focal deficits noted. Current Medications: Current Medications Sig/Pablo Start time Last Medication Dose Route Stop Time Status Admin Albuterol Sulfate 2 PUF Q4P PRN 12/19 103 AC INH Albuterol Sulfate 3 ML Q4P PRN 12/19 1030 AC INH Allopurinol 300 MG DAILY 12/20 899 AC 12/22 PO 0746 Atorvastatin Calcium 10 MG 1700 12/19 1700 AC 12/21 PO 1734 Bisacodyl 5 MG DAILY PRN 12/21 1615 AC 12/22 PO 0746 Budesonide/ 2 PUF BID 12/19 2100 AC 12/22 Formoterol Fumarate INH 0757 Clonidine 0.1 MG DAILY 12/20 1437 DC 12/22 PO 0745 Cyanocobalamin 250 MCG DAILY 12/20 0900 AC 12/22 PO 0746 Diltiazem HCl 240 MG DAILY 12/20 0900 AC 12/22 PO 0745 Docusate Sodium 100 MG DAILY NEEDED PRN 12/21 1615 AC PO Docusate Sodium 100 MG DAILY 12/20 0900 AC 12/22 PO 0746 Fentanyl Citrate 100 MCG Q72 12/20 0900 AC 12/20 TOP 0758 Folic Acid 1 MG DAILY 12/20 0900 AC 12/22 PO 0746 Furosemide 40 MG DAILY 12/23 0900 AC PO Furosemide 40 MG DAILY 12/20 0900 DC 12/22 IV 0746 Heparin Sodium 6,200 UNIT ONCE ONE 12/22 0315 DC 12/22 (Porcine) IV 12/22 0316 0315 Heparin Sodium 25,000 UNIT .STK-MED ONE 12/21 2246 DC (Porcine) IV 12/21 2247 Heparin Sodium 5,700 UNIT ONCE ONE 12/21 1100 DC 12/21 (Porcine) IV 12/21 1101 1128 Heparin Sodium 25,000 UNIT Q24H 12/20 1515 AC 12/21 (Porcine) IV 2248 Sodium Chloride 500 ML Insulin Aspart 0 TIDAC 12/21 0800 AC SC Lisinopril 20 MG DAILY 12/20 0900 AC 12/22 PO 0746 Lorazepam 2 MG Q8 12/22 1400 AC PO Lorazepam 2 MG Q6 12/20 1200 DC 12/22 PO 0547 Lorazepam 0 Q1P PRN 12/20 0830 AC 12/21 IV 0907 Lorazepam 1 MG Q2 HRS NEEDED PRN 12/19 1030 DC 12/20 IV 0306 Methylprednisolone 40 MG DAILY 12/21 1534 DC 12/22 IV 0747 Metoprolol Tartrate 25 MG BID 12/21 0900 AC 12/22 PO 0746 Morphine Sulfate 2 MG Q4P PRN 12/19 1030 AC 12/20 IV 1725 Multivitamins 1 TAB DAILY 12/20 09 AC 12/22 PO 0746 Nicotine 14 MG Q24 12/20 09 AC 12/22 TOP 0745 Ondansetron HCl 4 MG Q8P PRN 12/19 1030 AC IV Oxycodone HCl 20 MG 4 TIMES/DAY PRN 12/19 1030 AC 12/22 PO 0757 Potassium Chloride 10 MEQ DAILY 12/20 09 AC 12/22 PO 0746 Prednisone 40 MG DAILY 12/23 09 AC PO Senna 187 MG AT BEDTIME 12/21 2100 AC 12/21 PO 2052 Thiamine HCl 100 MG DAILY 12/20 09 AC 12/22 PO 0746 Results Last 48 Hrs of Labs/Mics: Laboratory Tests 12/22/17 0934: APTT 91 H 12/22/17 0615: Anion Gap 9, Estimated GFR > 60, BUN/Creatinine Ratio 38.3 H, Magnesium 1.8, CBC w Diff NO MAN DIFF REQ, RBC 4.51 L, MCV 99.2 H, MCH 33.0 H, MCHC 33.3, RDW 14.2, MPV 8.3, Gran % 85.0 H, Lymphocytes % 8.4 L, Monocytes % 6.3, Eosinophils % 0.1, Basophils % 0.2, Absolute Granulocytes 6.7 H, Absolute Lymphocytes 0.7 L, Absolute Monocytes 0.5, Absolute Eosinophils 0, Absolute Basophils 0 12/22/17 0155: APTT 56 H 12/21/17 1410: APTT 82 H 12/21/17 1355: pH 7.41, pCO2 57 H, pO2 69 L, HCO3 35 H, ABG O2 Sat (Measured) 91.0 L, Carboxyhemoglobin 1.6, O2 Concentration % 80%, O2 Delivery Method HFNC, 45L FLOW , Phlebotomy Draw Site RIGHT RADIAL 12/21/17 0805: APTT 57 H 12/21/17 0615: Anion Gap 12, Estimated GFR > 60, BUN/Creatinine Ratio 25.0, Magnesium 1.8, CBC w Diff NO MAN DIFF REQ, RBC 4.39 L, MCV 99.4 H, MCH 33.4 H, MCHC 33.6, RDW 14.1, MPV 8.5, Gran % 77.7 H, Lymphocytes % 9.9 L, Monocytes % 11.4 H, Eosinophils % 0.6, Basophils % 0.4, Absolute Granulocytes 7.5 H, Absolute Lymphocytes 1.0 L, Absolute Monocytes 1.1 H, Absolute Eosinophils 0.1, Absolute Basophils 0 12/20/17 2355: APTT 37 Recent Imaging Studies: Telemetry tracings were personally reviewed and shows atrial fibrillation with borderline ventricular response rate Echocardiogram Normal left and right ventricular systolic function. Moderate LVH. Biatrial enlargement. Moderate Mitral regurgitation. Adriano Saldana M.D. (Electronically Signed) Final Date: 22 Dec 2017 07:47 Assessment/Plan Assessment/Plan #1. Persistent atrial fibrillation on Pradaxa currently on hold with rapid ventricular response most likely secondary to alcohol withdrawal #2. Diabetes #3. Hypertension #4. Obstructive sleep apnea/COPD #5. Periumbilical hernia requiring surgical intervention #6. Alcohol abuse with DTs The patient is resting comfortably today and appears euvolemic on exam with normal biventricular function by echocardiogram. Overall heart rate control on telemetry is reasonable on the current AV jenn blockers. Steroid taper per pulmonary. The patient represents moderate cardiovascular risk for surgery based on his history. He is currently on heparin drip while Pradaxa is being held. Orlando Walker MD [facility] Continue telemetry? Yes
--- NOTE | 2017-12-22 11:22 | RADIOLOGY REPORT ---
EXAMINATION: XR CHEST CLINICAL INFORMATION: Pulmonary edema. COMPARISON: 12/19/2017 TECHNIQUE: 3 views of the chest were obtained. FINDINGS: The heart is enlarged, stable. There is persistent central vascular congestion, with interstitial prominence correlating with mild interstitial pulmonary edema. There is interval development of right basilar patchy airspace disease. Persistent opacity in the left retrocardiac region, could represent airspace consolidation in this region. A small left-sided pleural effusion is suspected. IMPRESSION: Stable cardiomegaly. Findings compatible with persistent interstitial pulmonary edema. Right basilar atelectasis or pneumonia. Left basilar opacities could be secondary to overlapping structures, with airspace disease not excluded. Suspect small left pleural effusion.
--- NOTE | 2017-12-22 16:11 | Patient Discharge Instructions ---
Discharge Instructions General Discharge Information You were seen/treated for: Alcohol Detox Umbilical Hernia Acute Hypoxic Respiratory Failure Atrial Fibrilliation Special Instructions: Please follow up with your PCP, salvage winder and local area network systems adminstrator within one week of discharge. Please follow up with your general surgeon within 1 week of discharge. Diet Continue normal diet: Yes Recommended Diet: Heart Healthy Activity Full Activity/No Limits: Yes Acute Coronary Syndrome Inclusion Criteria At DC or during hospital stay patient has or had the following: ACS DIAGNOSIS No Discharge Core Measures Meds if any: Prescribed or Continued at Discharge Meds if any: NOT Prescribed or Continued at Discharge Congestive Heart Failure Inclusion Criteria At DC or during hospital stay patient has or had the following: CHF DIAGNOSIS No Discharge Core Measures Meds if any: Prescribed or Continued at Discharge Meds if any: NOT Prescribed or Continued at Discharge Cerebrovascular accident Inclusion Criteria At DC or during hospital stay patient has or had the following: CVA/TIA Diagnosis No Discharge Core Measures Meds if any: Prescribed or Continued at Discharge Meds if any: NOT Prescribed or Continued at Discharge Venous thromboembolism Inclusion Criteria VTE Diagnosis No VTE Type NONE VTE Confirmed by (Test) NONE Discharge Core Measures - Per Current guidelines, there needs to be overlap - treatment for the first 5 days of Warfarin therapy. - If discharged on Warfarin prior to 5 days of - overlap therapy, the patient will need to be - assessed for post discharge needs including - *Post discharge parental anticoagulation - *Warfarin and/or parental anticoagulation education - *Follow up date to check INR post discharge At least 5 days overlap therapy as Inpatient No Meds if any: Prescribed or Continued at Discharge Note: Overlap Therapy is Warfarin and Anticoagulant Meds if any: NOT Prescribed or Continued at Discharge
[2017-12-22 22:28] LABS: PTT 61 SEC (25-37)
[2017-12-23] VITALS (13 sets, daily range): BP systolic 100–160; BP diastolic 70–90
--- NOTE | 2017-12-23 07:12 | PN- Housestaff ---
Pallavi HARVEY,[facility] 12/23/17 0712: Subjective Follow-up For: Umbilical Hernia Alcohol Detox Tele-Events Since Last Visit: Bhumika with HR 85-102 Subjective: Patient seen and examined this morning. States he feels tired but otherwise well. Has no complaints. He did not use the BiPAP for most of the night as he does not like it. Review of Systems Constitutional: Reports: no symptoms. Objective Last 24 Hrs of Vital Signs/I&O Vital Signs Date Time Temp Pulse Resp B/P B/P Pulse O2 O2 Flow FiO2 Mean Ox Delivery Rate 12/23 0549 98.5 74 20 130/86 91 12/23 0038 107 95 12/22 2219 99.1 138 18 93 Room Air 12/22 2156 Room Air Room Air 12/22 2056 105 172/90 12/22 1906 113 16 94 Room Air 12/22 1800 112 16 150/90 12/22 1600 98.3 114 20 150/90 12/22 1420 98.3 114 20 150/90 92 Nasal 2.0L Cannula 12/22 1400 112 16 138/88 12/22 1226 124 16 138/88 12/22 1200 124 16 138/88 12/22 1000 107 16 120/86 12/22 0900 96 Nasal 2.0L Cannula 12/22 0800 Nasal 4.0L Cannula 12/22 0800 97.8 103 20 120/86 12/22 0746 65 120/86 12/22 0746 65 120/86 12/22 0745 65 120/86 12/22 0744 65 120/86 Intake & Output 12/23 0800 12/23 0000 12/22 1600 Intake Total 506.4 874.8 1391.4 Output Total 200 600 850 Balance 306.4 274.8 541.4 Intake, IV 406.4 304.8 431.4 Intake, Oral 100 570 960 Number 1 Bowel Movements Output, Urine 200 600 850 Patient 344 lb 342 lb Weight Weight Bed scale Measurement Method Physical Exam General Appearance: Alert, Oriented X3, Cooperative, No Acute Distress Skin: No Rashes, No Breakdown Skin Temp/Moisture Exam: Warm/Dry Sepsis Skin Exam (color): Normal for Ethnicity HEENT: Atraumatic Cardiovascular: Normal S1, Normal S2, No Murmurs Lungs: Normal Air Movement Abdomen: Soft, No Tenderness Neurological: Normal Speech Extremities: No Edema Last 24 Hrs of Lab/Timothy Results Last 24 Hrs of Labs/Mics: Laboratory Tests 12/23/17 0635: Sodium Pending, Potassium Pending, Chloride Pending, Carbon Dioxide Pending, Anion Gap Pending, BUN Pending, Creatinine Pending, BUN/Creatinine Ratio Pending , Magnesium Pending, APTT Pending, CBC w Diff Pending, WBC Pending, RBC Pending, Hgb Pending, Hct Pending, MCV Pending, MCH Pending, MCHC Pending, RDW Pending, Plt Count Pending, MPV Pending 12/22/17 2155: APTT 61 H 12/22/17 0934: APTT 91 H Assessment/Plan Assessment: 62 YO M with PMH significant for COPD, A.fib on pradaxa, JERRELL (not compliant with CPAP), Psoriatic arthritis, Venous insufficiency, regular alcohol consumption, HTN presented to [place] after developing abdominal pain this evening. Assessment: 1. Acute Hypoxic Respiratory Failure with Chronic Hypercapnic Respiratory Failure 2. Umbilical Hernia 3. Alcohol Detox 4. Atrial Fibrilliation with RVR 5. History of COPD 6. History of JERRELL Plan: * Continue oxygen supplementation to maintain target sats > 92%. Currently on 2L NC. He needs to use the BiPAP/CPAP at night. * TRC/Nebs as needed. * Pulm recs appreciated * Start Prednisone 40mg daily. Will taper quickly. * Continue metoprolol 25mg BID. * Continue PO Lasix 40mg daily. * Continue IV heparin for AC * Continue Diltiazem 240mg daily. * Echocardiogram - Normal left and right ventricular systolic function. Moderate mitral regurgitation. * Reduce Ativan 2mg q12 PO. Will discontinue after tomorrw. * IV Ativan per CIWA * Continue thiamine, folic acid, multivitamins * Monitor electrolytes and replete as needed. * Nicotine patch 14mg daily. * Patient is medically stable for surgery. His RCRI is 6.6%. Moderate risk for moderate-high risk surgery. Patient's family wishes to pursue it with Dr Smith. * Diet: Heart Healthy. * DVT Prophylaxis: IV heparin * Code Status: Full Code Problem List: 1. Abdominal pain Pain Ratin Pain Location: none Pain Goal: Remain pain free Pain Plan: none Tomorrow's Labs & Rationales: CBC, BEP Yoadny,Manik 12/23/17 0952: Attending MD Review Statement Attending Statement Attending MD Statement: examined this patient, discuss w/resident/PA/FARM PRODUCT PURCHASER, agreed w/resident/PA/FARM PRODUCT PURCHASER, discussed with family, reviewed EMR data (avail), discussed with nursing, discussed with case mgmt, reviewed images, amended to note Attending Assessment/Plan: 62 y/o HTN, Diabetes, A.fib on pradaxa, Psoriatic arthritis on celebrex/fentanyl patch, JERRELL noncompliant with CPAP admitted to surgical service with abd pain, incarcerated umblical hernia which was reduced. Surgery was canceled and patient has been transferred to telemetry. Chest xray obtained suggestive of pulmonary edema. His shortenss of breath is significantly improved with use of NIPPV and diuresis. Patient seen/examined bedside. He is aaox 3, vital stable, 2l nc 96%. CIWA 0. Ativan taper finishing per CIWA protocol. c/w [facility] Cardiology on board. c/w lasix 40 PO daily, monitor I/O. ECHO with preserved EF. Afib rate controlled on cardizem 240 + metoprolol, treat underlying withdrawal would help rate control. Anticoaglaution with iv heparin in interim. Pradaxa post-op. JERRELL pulm appreciated . cpap at night non compliant. encouarge use of NIPPV at night. Follow cardiology for further recs and if ok to go for surgery then inform surgical team/anesthesia. Dr Benoit aware. Patient is moderate to high risk for moderate risk surgery. Planned surgery tomorrow, confirm surgical team. gi/dvt prophyalxis full code. gi/dvt prophyalxis full code.
[2017-12-23 08:18] LABS: ABSOLUTE BASOPHIL COUNT 0 /CUMM (0.0-0.2); ABSOLUTE EOSINOPHIL COUNT 0 /CUMM (0.0-0.7); ABSOLUTE GRANULOCYTE CT 6.1 /CUMM (1.4-6.5); ABSOLUTE LYMPH COUNT 1.7 /CUMM (1.2-3.4); ABSOLUTE MONOCYTE COUNT 0.9 /CUMM (0.10-0.60); BASOPHIL % 0.3 % (0.0-2.0); EOSINOPHIL % 0.4 % (0-5); GRANULOCYTE % 69.5 % (42.2-75.2); HEMATOCRIT 43.7 % (42-52); MEAN CORPUSCULAR HGB CONC 33.1 G/DL (33.0-37.0); MEAN CORPUSCULAR VOLUME 99.7 FL (80.0-94.0); MEAN PLATELET VOLUME 8.3 FL (7.4-10.4); PLATELET COUNT 222 /CUMM (130-400); RBC DISTRIBUTION WIDTH 14.1 % (11.5-14.5); RED BLOOD CELL CT 4.38 /CUMM (4.70-6.10); WHITE BLOOD CELL COUNT 8.7 /CUMM (4.8-10.8)
--- NOTE | 2017-12-23 08:40 | PN- Cardiology ---
Subjective Subjective: Telemetry reviewed. Atrial Fibrillation with controlled rate from 80-100. No cardiac issues. Objective Vital Signs and I&Os Telemetry reviewed vital Signs Date Time Temp Pulse Resp B/P B/P Pulse O2 O2 Flow FiO2 Mean Ox Delivery Rate 12/23 0800 Room Air 12/23 0800 98.5 74 20 130/86 12/23 0549 98.5 74 20 130/86 91 12/23 0038 107 95 12/22 2219 99.1 138 18 93 Room Air 12/22 2156 Room Air Room Air 12/22 2056 105 172/90 12/22 1906 113 16 94 Room Air 12/22 1800 112 16 150/90 12/22 1600 98.3 114 20 150/90 12/22 1420 98.3 114 20 150/90 92 Nasal 2.0L Cannula 12/22 1400 112 16 138/88 12/22 1226 124 16 138/88 12/22 1200 124 16 138/88 12/22 1000 107 16 120/86 12/22 0900 96 Nasal 2.0L Cannula Intake & Output 12/23 1600 12/23 0800 12/23 0000 12/22 1600 12/22 0800 12/22 0000 Intake Total 506.4 874.8 1391.4 675 239.2 Output Total 200 600 850 475 325 Balance 306.4 274.8 541.4 200 -85.8 Intake, IV 406.4 304.8 431.4 375 89.2 Intake, Oral 100 570 960 300 150 Number 1 Bowel Movements Output, Urine 200 600 850 475 325 Patient 344 lb 342 lb 342 lb Weight Weight Bed scale Bed scale Measurement Method Physical Exam: On general exam patient appeared comfortable Head normocephalic atraumatic Eyes sclera anicteric conjunctiva showed no pallor extraocular muscles were normal Neck no jugular venous distention no thyroid masses no palpable nodes Chest lungs were clear bilaterally Heart irregular rhythm with a ventricular rate around 86 Abdomen soft protuberant nontender umbilical hernia noted Extremities no clubbing cyanosis or edema. neurological no gross motor or sensory deficits Current Medications: Current Medications Sig/Pablo Start time Last Medication Dose Route Stop Time Status Admin Albuterol Sulfate 2 PUF Q4P PRN 12/19 1030 AC INH Albuterol Sulfate 3 ML Q4P PRN 12/19 1030 AC INH Allopurinol 300 MG DAILY 12/20 09 AC 12/22 PO 0746 Atorvastatin Calcium 10 MG 1700 12/19 1700 AC 12/22 PO 1615 Bisacodyl 5 MG DAILY PRN 12/21 1615 AC 12/22 PO 0746 Budesonide/ 2 PUF BID 12/19 2100 AC 12/22 Formoterol Fumarate INH 2056 Clonidine 0.1 MG DAILY 12/20 1437 DC 12/22 PO 0745 Cyanocobalamin 250 MCG DAILY 12/20 0900 AC 12/22 PO 0746 Diltiazem HCl 240 MG DAILY 12/20 0900 AC 12/22 PO 0745 Docusate Sodium 100 MG DAILY NEEDED PRN 12/21 1615 AC PO Docusate Sodium 100 MG DAILY 12/20 0900 AC 12/22 PO 0746 Fentanyl Citrate 100 MCG Q72 12/20 0900 AC 12/20 TOP 0758 Folic Acid 1 MG DAILY 12/20 0900 AC 12/22 PO 0746 Furosemide 40 MG DAILY 12/23 0900 AC PO Furosemide 40 MG DAILY 12/20 0900 DC 12/22 IV 0746 Heparin Sodium 25,000 UNIT .STK-MED ONE 12/22 1004 DC (Porcine) IV 12/22 1005 Heparin Sodium 25,000 UNIT Q24H 12/20 1515 AC 12/23 (Porcine) IV 0659 Sodium Chloride 500 ML Insulin Aspart 0 TIDAC 12/21 0800 AC 12/22 SC 1717 Lisinopril 20 MG DAILY 12/20 0900 AC 12/22 PO 0746 Lorazepam 2 MG Q8 12/22 1400 AC 12/23 PO 0518 Lorazepam 0 Q1P PRN 12/20 0830 AC 12/21 IV 0907 Melatonin 5 MG AT BEDTIME NEED.. 12/23 0245 AC 12/23 PO 0238 Methylprednisolone 40 MG DAILY 12/21 1534 DC 12/22 IV 0747 Metoprolol Tartrate 25 MG BID 12/21 0900 AC 12/22 PO 2056 Morphine Sulfate 2 MG Q4P PRN 12/19 1030 AC 12/22 IV 2315 Multivitamins 1 TAB DAILY 12/20 0900 AC 12/22 PO 0746 Nicotine 14 MG Q24 12/20 0900 AC 12/22 TOP 0745 Ondansetron HCl 4 MG Q8P PRN 12/19 1030 AC IV Oxycodone HCl 20 MG 4 TIMES/DAY PRN 12/19 1030 AC 12/23 PO 0518 Potassium Chloride 10 MEQ DAILY 12/20 0900 AC 12/22 PO 0746 Prednisone 40 MG DAILY 12/23 0900 AC PO Senna 187 MG AT BEDTIME 12/21 2100 AC 12/22 PO 205 Thiamine HCl 100 MG DAILY 12/20 0900 AC 12/22 PO 0746 Results Last 48 Hrs of Labs/Mics: Laboratory Tests 12/23/17 0635: Anion Gap 9, Estimated GFR > 60, BUN/Creatinine Ratio 31.4 H, Magnesium 1.8, APTT Pending, CBC w Diff Pending, WBC Pending, RBC Pending, Hgb Pending, Hct Pending, MCV Pending, MCH Pending, MCHC Pending, RDW Pending, Plt Count Pending, MPV Pending 12/22/17 2155: APTT 61 H 12/22/17 0934: APTT 91 H 12/22/17 0615: Anion Gap 9, Estimated GFR > 60, BUN/Creatinine Ratio 38.3 H, Magnesium 1.8, CBC w Diff NO MAN DIFF REQ, RBC 4.51 L, MCV 99.2 H, MCH 33.0 H, MCHC 33.3, RDW 14.2, MPV 8.3, Gran % 85.0 H, Lymphocytes % 8.4 L, Monocytes % 6.3, Eosinophils % 0.1, Basophils % 0.2, Absolute Granulocytes 6.7 H, Absolute Lymphocytes 0.7 L, Absolute Monocytes 0.5, Absolute Eosinophils 0, Absolute Basophils 0 12/22/17 0155: APTT 56 H 12/21/17 1410: APTT 82 H 12/21/17 1355: pH 7.41, pCO2 57 H, pO2 69 L, HCO3 35 H, ABG O2 Sat (Measured) 91.0 L, Carboxyhemoglobin 1.6, O2 Concentration % 80%, O2 Delivery Method HFNC, 45L FLOW , Phlebotomy Draw Site RIGHT RADIAL Assessment/Plan Assessment/Plan In summary this 62-year-old gentleman has a following problems #1. Persistent atrial fibrillation on Pradaxa currently on hold with rapid ventricular response most likely secondary to alcohol withdrawal #2. Diabetes #3. Hypertension #4. Obstructive sleep apnea/COPD #5. Periumbilical hernia requiring surgical intervention #6. Alcohol abuse with DTs He is on good rate control on telemetry. He is on heparin as Pradaxa is being held. Surgery is pending tomorrow. Continue telemetry? Yes
[2017-12-23 11:55] LABS: PTT 68 SEC (25-37)
--- NOTE | 2017-12-23 18:06 | PN- Pulmonary ---
Subjective HPI/Critical Care Issues: Atrial Fibrillation with controlled rate from 80-100. No cardiac issues. Improved resp rinaldi Objective Current Medications: Current Medications Sig/Pablo Start time Last Medication Dose Route Stop Time Status Admin Albuterol Sulfate 2 PUF Q4P PRN 12/19 1030 AC INH Albuterol Sulfate 3 ML Q4P PRN 12/19 1030 AC INH Allopurinol 300 MG DAILY 12/20 0900 AC 12/23 PO 0923 Atorvastatin Calcium 10 MG 1700 12/19 1700 AC 12/23 PO 1611 Bisacodyl 5 MG DAILY PRN 12/21 1615 AC 12/22 PO 0746 Budesonide/ 2 PUF BID 12/19 2100 AC 12/23 Formoterol Fumarate INH 0922 Cyanocobalamin 250 MCG DAILY 12/20 0900 AC 12/23 PO 0923 Diltiazem HCl 240 MG DAILY 12/20 0900 AC 12/23 PO 0922 Docusate Sodium 100 MG DAILY NEEDED PRN 12/21 1615 AC PO Docusate Sodium 100 MG DAILY 12/20 0900 AC 12/23 PO 0922 Fentanyl Citrate 100 MCG Q72 12/20 0900 AC 12/23 TOP 0920 Folic Acid 1 MG DAILY 12/20 0900 AC 12/23 PO 0922 Furosemide 40 MG DAILY 12/23 0900 AC 12/23 PO 0923 Heparin Sodium 25,000 UNIT .STK-MED ONE 12/23 0657 DC (Porcine) IV 12/23 0658 Heparin Sodium 25,000 UNIT Q24H 12/20 1515 AC 12/23 (Porcine) IV 12/24 0600 1747 Sodium Chloride 500 ML Insulin Aspart 0 TIDAC 12/21 0800 AC 12/22 SC 1717 Lisinopril 20 MG DAILY 12/20 0900 AC 12/23 PO 0923 Lorazepam 2 MG 0600,1800 12/23 1800 AC 12/23 PO 1708 Lorazepam 2 MG Q8 12/22 1400 DC 12/23 PO 0518 Lorazepam 0 Q1P PRN 12/20 0830 AC 12/21 IV 0907 Magnesium Sulfate 1 GM ONCE ONE 12/23 1015 DC 12/23 Dextrose/Water 100 ML IV 12/23 1414 1017 Melatonin 5 MG AT BEDTIME NEED.. 12/23 0245 AC 12/23 PO 0238 Metoprolol Tartrate 25 MG BID 12/21 0900 AC 12/23 PO 0923 Morphine Sulfate 2 MG Q4P PRN 12/19 1030 AC 12/23 IV 1516 Multivitamins 1 TAB DAILY 12/20 0900 AC 12/23 PO 0923 Nicotine 14 MG Q24 12/20 0900 AC 12/23 TOP 0921 Nystatin 1 JAY JAY BID 12/23 1147 AC 12/23 TOP 1307 Ondansetron HCl 4 MG Q8P PRN 12/19 1030 AC IV Oxycodone HCl 20 MG 4 TIMES/DAY PRN 12/19 1030 AC 12/23 PO 1126 Potassium Chloride 40 MEQ ONCE ONE 12/23 1015 DC 12/23 PO 12/23 1016 1017 Potassium Chloride 10 MEQ DAILY 12/20 0900 AC 12/23 PO 0923 Prednisone 40 MG DAILY 12/23 0900 AC 12/23 PO 0923 Senna 187 MG AT BEDTIME 12/21 2100 AC 12/22 PO 205 Thiamine HCl 100 MG DAILY 12/20 0900 AC 12/23 PO 0923 Vital Signs & I&O Last 24 Hrs of Vitals and I&O: Vital Signs Date Time Temp Pulse Resp B/P B/P Pulse O2 O2 Flow FiO2 Mean Ox Delivery Rate 12/23 1600 89 16 160/90 12/23 1420 99.0 82 22 160/90 92 Nasal 2.0L Cannula 12/23 1400 99.0 82 22 160/90 12/23 1200 82 16 100/70 12/23 1000 103 16 100/70 12/23 0923 103 100/70 12/23 0923 103 100/70 12/23 0921 92 Nasal 2.0L Cannula 12/23 0919 103 100/70 12/23 0800 Room Air 12/23 0800 98.5 74 20 130/86 12/23 0549 98.5 74 20 130/86 91 12/23 0038 107 95 12/22 2219 99.1 138 18 93 Room Air 12/22 2156 Room Air Room Air 12/22 2056 105 172/90 12/22 1906 113 16 94 Room Air Intake & Output 12/23 1600 12/23 0800 12/23 0000 Intake Total 1246.4 506.4 874.8 Output Total 1150 200 600 Balance 96.4 306.4 274.8 Intake, IV 526.4 406.4 304.8 Intake, Oral 720 100 570 Number 1 Bowel Movements Output, Urine 1150 200 600 Patient 344 lb Weight Weight Bed scale Measurement Method Laboratory Tests 12/23 12/23 12/22 12/22 1025 0695 [id number] Chemistry Sodium (137 - 145 mmol/L) 140 Potassium (3.5 - 5.1 mmol/L) 3.7 Chloride (98 - 107 mmol/L) 99 Carbon Dioxide (22 - 30 mmol/L) 32 H Anion Gap (5 - 16) 9 BUN (9 - 20 mg/dL) 22 H Creatinine (0.7 - 1.2 mg/dL) 0.7 Estimated GFR (>60 ml/min) > 60 BUN/Creatinine Ratio (7 - 25 %) 31.4 H Magnesium (1.6 - 2.3 mg/dL) 1.8 Coagulation APTT (25 - 37 SEC) 68 H 61 H 91 H Hematology CBC w Diff NO MAN DIFF REQ WBC (4.8 - 10.8 /CUMM) 8.7 RBC (4.70 - 6.10 /CUMM) 4.38 L Hgb (14.0 - 18.0 G/DL) 14.4 Hct (42 - 52 %) 43.7 MCV (80.0 - 94.0 FL) 99.7 H MCH (27.0 - 31.0 PG) 33.0 H MCHC (33.0 - 37.0 G/DL) 33.1 RDW (11.5 - 14.5 %) 14.1 Plt Count (130 - 400 /CUMM) 222 MPV (7.4 - 10.4 FL) 8.3 Gran % (42.2 - 75.2 %) 69.5 Lymphocytes % (20.5 - 51.1 %) 20.0 L Monocytes % (1.7 - 9.3 %) 9.8 H Eosinophils % (0 - 5 %) 0.4 Basophils % (0.0 - 2.0 %) 0.3 Absolute Granulocytes (1.4 - 6.5 /CUMM) 6.1 Absolute Lymphocytes (1.2 - 3.4 /CUMM) 1.7 Absolute Monocytes (0.10 - 0.60 /CUMM) 0.9 H Absolute Eosinophils (0.0 - 0.7 /CUMM) 0 Absolute Basophils (0.0 - 0.2 /CUMM) 0 12/22 12/22 0697 0155 Chemistry Sodium (137 - 145 mmol/L) 138 Potassium (3.5 - 5.1 mmol/L) 4.2 Chloride (98 - 107 mmol/L) 95 L Carbon Dioxide (22 - 30 mmol/L) 35 H Anion Gap (5 - 16) 9 BUN (9 - 20 mg/dL) 23 H Creatinine (0.7 - 1.2 mg/dL) 0.6 L Estimated GFR (>60 ml/min) > 60 BUN/Creatinine Ratio (7 - 25 %) 38.3 H Magnesium (1.6 - 2.3 mg/dL) 1.8 Coagulation APTT (25 - 37 SEC) 56 H Hematology CBC w Diff NO MAN DIFF REQ WBC (4.8 - 10.8 /CUMM) 7.9 RBC (4.70 - 6.10 /CUMM) 4.51 L Hgb (14.0 - 18.0 G/DL) 14.9 Hct (42 - 52 %) 44.8 MCV (80.0 - 94.0 FL) 99.2 H MCH (27.0 - 31.0 PG) 33.0 H MCHC (33.0 - 37.0 G/DL) 33.3 RDW (11.5 - 14.5 %) 14.2 Plt Count (130 - 400 /CUMM) 222 MPV (7.4 - 10.4 FL) 8.3 Gran % (42.2 - 75.2 %) 85.0 H Lymphocytes % (20.5 - 51.1 %) 8.4 L Monocytes % (1.7 - 9.3 %) 6.3 Eosinophils % (0 - 5 %) 0.1 Basophils % (0.0 - 2.0 %) 0.2 Absolute Granulocytes (1.4 - 6.5 /CUMM) 6.7 H Absolute Lymphocytes (1.2 - 3.4 /CUMM) 0.7 L Absolute Monocytes (0.10 - 0.60 /CUMM) 0.5 Absolute Eosinophils (0.0 - 0.7 /CUMM) 0 Absolute Basophils (0.0 - 0.2 /CUMM) 0 Impression/Plan Impression/Plan Impression/Plan: On general exam patient appeared comfortable Head normocephalic atraumatic Eyes sclera anicteric conjunctiva showed no pallor extraocular muscles were normal Neck no jugular venous distention no thyroid masses no palpable nodes Chest lungs were clear bilaterally Heart irregular rhythm with a ventricular rate around 86 Abdomen soft protuberant nontender umbilical hernia noted Extremities no clubbing cyanosis or edema. neurological no gross motor or sensory deficits 62-year-old with chronic hypercapnic respiratory failure developed acute hypoxic respiratory failure secondary to congestive heart failure. He is clinically improved. Resp failure resolved CHF improved JERRELL on cpap to cont bedtime pap COnt prednisone 40 for two more days and dc will follow
[2017-12-23 23:08] LABS: PTT 107 SEC (25-37)
[2017-12-24 06:00] VITALS: BP 122/80
--- NOTE | 2017-12-24 07:10 | PN- Housestaff ---
Pallavi HARVEY,[facility] 12/24/17 0710: Subjective Follow-up For: Umbilical Hernia Alcohol Detox uncontrolled a.fib Tele-Events Since Last Visit: Bhumika with HR 73-94. No overnight events. Subjective: Patient was seen and examined at bedside. States feels good. Did not use the BiPAP overnight. No complaints. Review of Systems Constitutional: Reports: no symptoms. Objective Last 24 Hrs of Vital Signs/I&O Vital Signs Date Time Temp Pulse Resp B/P B/P Pulse O2 O2 Flow FiO2 Mean Ox Delivery Rate 12/24 0600 98.0 78 20 122/80 91 Nasal Cannula 12/24 0000 Nasal 2.0L Cannula 12/23 2218 98.2 78 20 112/80 94 Nasal 2.0L Cannula 12/23 2200 98.2 78 20 112/80 12/23 2138 88 16 104/82 12/23 2011 88 104/82 12/23 2009 88 104/82 12/23 1800 88 16 104/82 12/23 1600 89 16 160/90 12/23 1420 99.0 82 22 160/90 92 Nasal 2.0L Cannula 12/23 1400 99.0 82 22 160/90 12/23 1200 82 16 100/70 12/23 1000 103 16 100/70 12/23 0923 103 100/70 12/23 0923 103 100/70 12/23 0921 92 Nasal 2.0L Cannula 12/23 0919 103 100/70 12/23 0800 Room Air 12/23 0800 98.5 74 20 130/86 Intake & Output 12/24 0800 12/24 0000 12/23 1600 Intake Total 310 776.9 1246.4 Output Total 600 1150 Balance 310 176.9 96.4 Intake, IV 250 416.9 526.4 Intake, Oral 60 360 720 Number 1 Bowel Movements Output, Urine 600 1150 Patient 334 lb Weight Physical Exam General Appearance: Alert, Oriented X3, Cooperative, No Acute Distress Skin: No Rashes, No Breakdown Skin Temp/Moisture Exam: Warm/Dry Sepsis Skin Exam (color): Normal for Ethnicity HEENT: Atraumatic Cardiovascular: Normal S1, Normal S2, No Murmurs, irregular Lungs: Clear to Auscultation, Normal Air Movement Abdomen: Soft, No Tenderness Neurological: Normal Speech Extremities: No Edema Last 24 Hrs of Lab/Timothy Results Last 24 Hrs of Labs/Mics: Laboratory Tests 12/24/17 0647: Sodium Pending, Potassium Pending, Chloride Pending, Carbon Dioxide Pending, Anion Gap Pending, BUN Pending, Creatinine Pending, BUN/Creatinine Ratio Pending , CBC w Diff Pending, WBC Pending, RBC Pending, Hgb Pending, Hct Pending, MCV Pending, MCH Pending, MCHC Pending, RDW Pending, Plt Count Pending, MPV Pending 12/23/17 2244: APTT 107 *H 12/23/17 1025: APTT 68 H Assessment/Plan Assessment: 62 YO M with PMH significant for COPD, A.fib on pradaxa, JERRELL (not compliant with CPAP), Psoriatic arthritis, Venous insufficiency, regular alcohol consumption, HTN presented to noe after developing abdominal pain this evening. Assessment: 1. Acute Hypoxic Respiratory Failure with Chronic Hypercapnic Respiratory Failure 2. Umbilical Hernia 3. Alcohol Detox 4. Atrial Fibrilliation with RVR 5. History of COPD 6. History of JERRELL Plan: * Continue oxygen supplementation to maintain target sats > 92%. Currently on 2L NC. He needs to use the BiPAP/CPAP at night. Will wean off oxygen as tolerated. Otherwise he may need home oxygen. * TRC/Nebs as needed. * Pulm recs appreciated * Continue Prednisone 40mg until tomorrow then stop. * Continue metoprolol 25mg BID. * Continue PO Lasix 40mg daily. * IV heparin on hold for surgery. Can be restarted on Pradaxa once surgical team recommends. * Continue Diltiazem 240mg daily. * Echocardiogram - Normal left and right ventricular systolic function. Moderate mitral regurgitation. * Discontinue Ativan * Continue thiamine, folic acid, multivitamins * Monitor electrolytes and replete as needed. * Nicotine patch 14mg daily. * Patient is medically stable for surgery. His RCRI is 6.6%. Moderate risk for moderate-high risk surgery. Patient's family wishes to pursue it with Dr Smith. * Diet: Heart Healthy. * DVT Prophylaxis: none right now. Pradaxa after surgery if appropriate. * Code Status: Full Code Problem List: 1. Atrial fibrillation Pain Ratin Pain Location: none Pain Goal: Remain pain free Pain Plan: none Tomorrow's Labs & Rationales: CBC, BEP Yoandy,Manik 12/24/17 1042: Attending MD Review Statement Attending Statement Attending MD Statement: examined this patient, discuss w/resident/PA/OIL PROSPECTING OBSERVER, agreed w/resident/PA/OIL PROSPECTING OBSERVER, discussed with family, reviewed EMR data (avail), discussed with nursing, discussed with case mgmt, reviewed images, amended to note Attending Assessment/Plan: Patient with clear mental status, HR controlled. vitals stable. Patient is medically stable for the procedure and can be taken to OR. Discussed with pulmonary who agrees. Discussed with family who is in agreement for surgery. Patient remains a moderate risk for moderate risk procedure. gi/dvt prophyalxis full code.
[2017-12-24 08:00] VITALS: BP 122/80
[2017-12-24 08:13] LABS: ABSOLUTE BASOPHIL COUNT 0 /CUMM (0.0-0.2); ABSOLUTE EOSINOPHIL COUNT 0 /CUMM (0.0-0.7); ABSOLUTE GRANULOCYTE CT 4.9 /CUMM (1.4-6.5); ABSOLUTE LYMPH COUNT 1.9 /CUMM (1.2-3.4); ABSOLUTE MONOCYTE COUNT 0.8 /CUMM (0.10-0.60); BASOPHIL % 0.5 % (0.0-2.0); EOSINOPHIL % 0.2 % (0-5); GRANULOCYTE % 64.2 % (42.2-75.2); HEMATOCRIT 43.6 % (42-52); MEAN CORPUSCULAR HGB 32.7 PG (27.0-31.0); MEAN CORPUSCULAR HGB CONC 32.8 G/DL (33.0-37.0); MEAN CORPUSCULAR VOLUME 99.5 FL (80.0-94.0); MEAN PLATELET VOLUME 8.3 FL (7.4-10.4); PLATELET COUNT 205 /CUMM (130-400); RED BLOOD CELL CT 4.38 /CUMM (4.70-6.10); WHITE BLOOD CELL COUNT 7.7 /CUMM (4.8-10.8)
[2017-12-24 08:31] VITALS: BP 146/90
[2017-12-24] MEDS ORDERED: CARDIZEM CD240 M1 PO (10:16)
[2017-12-24] MEDS ORDERED: METOPROLOL TART25 M1 PO (10:16)
--- NOTE | 2017-12-24 10:48 | PN- Cardiology ---
Subjective Subjective: Feels well. Offers no complaints. Objective Vital Signs and I&Os Vital Signs Date Time Temp Pulse Resp B/P B/P Pulse O2 O2 Flow FiO2 Mean Ox Delivery Rate 12/24 0836 88 146/90 12/24 0836 88 146/90 12/24 0831 77 146/90 12/24 0600 98.0 78 20 122/80 91 Nasal Cannula 12/24 0000 Nasal 2.0L Cannula 12/23 2218 98.2 78 20 112/80 94 Nasal 2.0L Cannula 12/23 2200 98.2 78 20 112/80 12/23 2138 88 16 104/82 12/23 2011 88 104/82 12/23 2009 88 104/82 12/23 1800 88 16 104/82 12/23 1600 89 16 160/90 12/23 1420 99.0 82 22 160/90 92 Nasal 2.0L Cannula 12/23 1400 99.0 82 22 160/90 12/23 1200 82 16 100/70 Intake & Output 12/24 1600 12/24 0800 12/24 0000 12/23 1600 12/23 0800 12/23 0000 Intake Total 310 776.9 1246.4 506.4 874.8 Output Total 459 759 0143 200 600 Balance -400 310 176.9 96.4 306.4 274.8 Intake, IV 250 416.9 526.4 406.4 304.8 Intake, Oral 60 360 720 100 570 Number 1 Bowel Movements Output, Urine 894 199 1378 200 600 Patient 334 lb 344 lb Weight Weight Bed scale Measurement Method Physical Exam: General: no apparent distress. Alert. Overweight Eyes: No obvious scleral icterus. HEENT: No jugular venous distention or abnormal jugular venous pulsations. Cardiovascular: Normal intensity S1/S2. Irregular Respiratory: Lungs clear to auscultation bilaterally. Abdomen: Soft, nontender with no guarding or rebound tenderness. Musculoskeletal: No clubbing or cyanosis noted, no edema Skin: warm Neurologic: No gross focal deficits noted. Current Medications: Current Medications Sig/Pablo Start time Last Medication Dose Route Stop Time Status Admin Albuterol Sulfate 2 PUF Q4P PRN 12/19 1030 AC INH Albuterol Sulfate 3 ML Q4P PRN 12/19 1030 AC INH Allopurinol 300 MG DAILY 12/20 0900 AC 12/24 PO 0836 Atorvastatin Calcium 10 MG 1700 12/19 1700 AC 12/23 PO 1611 Bisacodyl 5 MG DAILY PRN 12/21 1615 AC 12/22 PO 0746 Budesonide/ 2 PUF BID 12/19 2100 AC 12/24 Formoterol Fumarate INH 0843 Cyanocobalamin 250 MCG DAILY 12/20 0900 AC 12/24 PO 0837 Dextrose/Sodium 1,000 ML Q13H 12/24 0630 DC 12/24 Chloride IV 12/24 0900 0759 Diltiazem HCl 240 MG DAILY 12/20 0900 AC 12/24 PO 0835 Docusate Sodium 100 MG DAILY NEEDED PRN 12/21 1615 PO Docusate Sodium 100 MG DAILY 12/20 0900 AC 12/23 PO 0922 Fentanyl Citrate 100 MCG Q72 12/20 0900 12/23 TOP 0920 Folic Acid 1 MG DAILY 12/20 0900 12/24 PO 0835 Furosemide 40 MG DAILY 12/23 0900 12/24 PO 0836 Heparin Sodium 25,000 UNIT Q24H 12/20 1515 DC 12/23 (Porcine) IV 12/24 0600 1747 Sodium Chloride 500 ML Insulin Aspart 0 TIDAC 12/21 0800 MN 12/22 [place] 1717 Insulin Human Regular 0 Q6 12/24 0600 12/24 SC 0803 Lisinopril 20 MG DAILY 12/20 0900 12/24 PO 0836 Lorazepam 2 MG 0600,1800 12/23 1800 MN 12/24 PO 0538 Lorazepam 0 Q1P PRN 12/20 0830 12/23 IV 2141 Magnesium Sulfate 1 GM ONCE ONE 12/23 1015 DC 12/23 Dextrose/Water 100 ML IV 12/23 1414 1017 Melatonin 5 MG AT BEDTIME NEED.. 12/23 0245 12/23 PO 0238 Metoprolol Tartrate 25 MG BID 12/21 0900 12/24 PO 0836 Morphine Sulfate 2 MG Q4P PRN 12/19 1030 AC 12/24 IV 0538 Multivitamins 1 TAB DAILY 12/20 0900 12/24 PO 0836 Nicotine 14 MG Q24 12/20 0900 12/24 TOP 0836 Nystatin 1 JAY JAY BID 12/23 1147 12/23 TOP 2012 Ondansetron HCl 4 MG Q8P PRN 12/19 1030 IV Oxycodone HCl 20 MG 4 TIMES/DAY PRN 12/19 1030 AC 12/24 PO 0758 Potassium Chloride 10 MEQ DAILY 12/20 09 AC 12/24 PO 0836 Prednisone 40 MG DAILY 12/23 09 AC 12/24 PO 0924 Senna 187 MG AT BEDTIME 12/21 2099 AC 12/23 PO 2010 Thiamine HCl 100 MG DAILY 12/20 09 AC 12/24 PO 0837 Results Last 48 Hrs of Labs/Mics: Laboratory Tests 12/24/17 0647: Anion Gap 7, Estimated GFR > 60, BUN/Creatinine Ratio 25.7 H, Magnesium 1.8, CBC w Diff NO MAN DIFF REQ, RBC 4.38 L, MCV 99.5 H, MCH 32.7 H, MCHC 32.8 L, RDW 14.0, MPV 8.3, Gran % 64.2, Lymphocytes % 24.3, Monocytes % 10.8 H, Eosinophils % 0.2, Basophils % 0.5, Absolute Granulocytes 4.9, Absolute Lymphocytes 1.9, Absolute Monocytes 0.8 H, Absolute Eosinophils 0, Absolute Basophils 0 12/23/17 2244: APTT 107 *H 12/23/17 1025: APTT 68 H 12/23/17 0635: Anion Gap 9, Estimated GFR > 60, BUN/Creatinine Ratio 31.4 H, Magnesium 1.8, CBC w Diff NO MAN DIFF REQ, RBC 4.38 L, MCV 99.7 H, MCH 33.0 H, MCHC 33.1, RDW 14.1, MPV 8.3, Gran % 69.5, Lymphocytes % 20.0 L, Monocytes % 9.8 H, Eosinophils % 0.4, Basophils % 0.3, Absolute Granulocytes 6.1, Absolute Lymphocytes 1.7, Absolute Monocytes 0.9 H, Absolute Eosinophils 0, Absolute Basophils 0 12/22/17 2155: APTT 61 H Recent Imaging Studies: Telemetry tracings are personally reviewed and showed atrial fibrillation with controlled ventricular response rate Assessment/Plan Assessment/Plan #1. Persistent atrial fibrillation on Pradaxa currently on hold with rapid ventricular response most likely secondary to alcohol withdrawal #2. Diabetes #3. Hypertension #4. Obstructive sleep apnea/COPD #5. Periumbilical hernia requiring surgical intervention #6. Alcohol abuse with DTs The patient is doing well and appears euvolemic. Heart rate is well controlled on the current AV jenn regimen. Resume anticoagulation post surgery when cleared by the surgical team. Orlando Walker MD [facility] Continue telemetry? Yes
--- NOTE | 2017-12-24 13:20 | PN- Pulmonary ---
Subjective HPI/Critical Care Issues: stable for surg Objective Current Medications: Current Medications Sig/Pablo Start time Last Medication Dose Route Stop Time Status Admin Albuterol Sulfate 2 PUF Q4P PRN 12/19 1030 AC INH Albuterol Sulfate 3 ML Q4P PRN 12/19 1030 AC INH Allopurinol 300 MG DAILY 12/20 0900 AC 12/24 PO 0836 Atorvastatin Calcium 10 MG 1700 12/19 1700 AC 12/23 PO 1611 Bisacodyl 5 MG DAILY PRN 12/21 1615 AC 12/22 PO 0746 Budesonide/ 2 PUF BID 12/19 2100 AC 12/24 Formoterol Fumarate INH 0843 Cyanocobalamin 250 MCG DAILY 12/20 0900 AC 12/24 PO 0837 Dextrose/Sodium 1,000 ML Q13H 12/24 0630 DC 12/24 Chloride IV 12/24 0900 0759 Diltiazem HCl 240 MG DAILY 12/20 0900 AC 12/24 PO 0835 Docusate Sodium 100 MG DAILY NEEDED PRN 12/21 1615 AC PO Docusate Sodium 100 MG DAILY 12/20 0900 AC 12/23 PO 0922 Fentanyl Citrate 100 MCG Q72 12/20 0900 AC 12/23 TOP 0920 Folic Acid 1 MG DAILY 12/20 0900 AC 12/24 PO 0835 Furosemide 40 MG DAILY 12/23 0900 AC 12/24 PO 0836 Heparin Sodium 25,000 UNIT Q24H 12/20 1515 DC 12/23 (Porcine) IV 12/24 0600 1747 Sodium Chloride 500 ML Insulin Aspart 0 TIDAC 12/21 0800 DC 12/22 [place] 1717 Insulin Human Regular 0 Q6 12/24 0600 12/24 SC 0803 Lisinopril 20 MG DAILY 12/20 0900 AC 12/24 PO 0836 Lorazepam 2 MG 0600,1800 12/23 1800 DC 12/24 PO 0538 Lorazepam 0 Q1P PRN 12/20 0830 12/23 IV 2141 Magnesium Sulfate 1 GM ONCE ONE 12/23 1015 DC 12/23 Dextrose/Water 100 ML IV 12/23 1414 1017 Melatonin 5 MG AT BEDTIME NEED.. 12/23 0245 AC 12/23 PO 0238 Metoprolol Tartrate 25 MG BID 12/21 0900 AC 12/24 PO 0836 Morphine Sulfate 2 MG Q4P PRN 12/19 1030 AC 12/24 IV 1136 Multivitamins 1 TAB DAILY 12/20 09 12/24 PO 0836 Nicotine 14 MG Q24 12/20 09 12/24 TOP 0836 Nystatin 1 JAY JAY BID 12/23 1147 12/23 TOP 2011 Ondansetron HCl 4 MG Q8P PRN 12/19 1030 IV Oxycodone HCl 20 MG 4 TIMES/DAY PRN 12/19 1030 AC 12/24 PO 0758 Potassium Chloride 10 MEQ DAILY 12/20 09 12/24 PO 0836 Prednisone 40 MG DAILY 12/23 09 12/24 PO 0924 Senna 187 MG AT BEDTIME 12/21 2100 AC 12/23 PO 2011 Thiamine HCl 100 MG DAILY 12/20 09 12/24 PO 0837 Vital Signs & I&O Last 24 Hrs of Vitals and I&O: Vital Signs Date Time Temp Pulse Resp B/P B/P Pulse O2 O2 Flow FiO2 Mean Ox Delivery Rate 12/24 1200 78 12/24 1000 88 12/24 0836 88 146/90 12/24 0836 88 146/90 12/24 0831 77 146/90 12/24 0800 98.0 78 20 122/80 12/24 0800 91 Nasal 2.0L Cannula 12/24 0600 98.0 78 20 122/80 91 Nasal Cannula 12/24 0000 Nasal 2.0L Cannula 12/23 2218 98.2 78 20 112/80 94 Nasal 2.0L Cannula 12/23 2200 98.2 78 20 112/80 12/23 2138 88 16 104/82 12/23 2010 88 104/82 12/23 2008 88 104/82 12/23 1800 88 16 104/82 12/23 1600 89 16 160/90 12/23 1420 99.0 82 22 160/90 92 Nasal 2.0L Cannula 12/23 1400 99.0 82 22 160/90 Intake & Output 12/24 1600 12/24 0800 12/24 0000 Intake Total 310 776.9 Output Total 1000 600 Balance -1000 310 176.9 Intake, IV 250 416.9 Intake, Oral 60 360 Output, Urine 1000 600 Patient 334 lb Weight Laboratory Tests 12/24 12/23 12/23 0647 2244 1025 Chemistry Sodium (137 - 145 mmol/L) 139 Potassium (3.5 - 5.1 mmol/L) 4.0 Chloride (98 - 107 mmol/L) 98 Carbon Dioxide (22 - 30 mmol/L) 34 H Anion Gap (5 - 16) 7 BUN (9 - 20 mg/dL) 18 Creatinine (0.7 - 1.2 mg/dL) 0.7 Estimated GFR (>60 ml/min) > 60 BUN/Creatinine Ratio (7 - 25 %) 25.7 H Magnesium (1.6 - 2.3 mg/dL) 1.8 Coagulation APTT (25 - 37 SEC) 107 *H 68 H Hematology CBC w Diff NO MAN DIFF REQ WBC (4.8 - 10.8 /CUMM) 7.7 RBC (4.70 - 6.10 /CUMM) 4.38 L Hgb (14.0 - 18.0 G/DL) 14.3 Hct (42 - 52 %) 43.6 MCV (80.0 - 94.0 FL) 99.5 H MCH (27.0 - 31.0 PG) 32.7 H MCHC (33.0 - 37.0 G/DL) 32.8 L RDW (11.5 - 14.5 %) 14.0 Plt Count (130 - 400 /CUMM) 205 MPV (7.4 - 10.4 FL) 8.3 Gran % (42.2 - 75.2 %) 64.2 Lymphocytes % (20.5 - 51.1 %) 24.3 Monocytes % (1.7 - 9.3 %) 10.8 H Eosinophils % (0 - 5 %) 0.2 Basophils % (0.0 - 2.0 %) 0.5 Absolute Granulocytes (1.4 - 6.5 /CUMM) 4.9 Absolute Lymphocytes (1.2 - 3.4 /CUMM) 1.9 Absolute Monocytes (0.10 - 0.60 /CUMM) 0.8 H Absolute Eosinophils (0.0 - 0.7 /CUMM) 0 Absolute Basophils (0.0 - 0.2 /CUMM) 0 12/23 12/22 0635 2155 Chemistry Sodium (137 - 145 mmol/L) 140 Potassium (3.5 - 5.1 mmol/L) 3.7 Chloride (98 - 107 mmol/L) 99 Carbon Dioxide (22 - 30 mmol/L) 32 H Anion Gap (5 - 16) 9 BUN (9 - 20 mg/dL) 22 H Creatinine (0.7 - 1.2 mg/dL) 0.7 Estimated GFR (>60 ml/min) > 60 BUN/Creatinine Ratio (7 - 25 %) 31.4 H Magnesium (1.6 - 2.3 mg/dL) 1.8 Coagulation APTT (25 - 37 SEC) 61 H Hematology CBC w Diff NO MAN DIFF REQ WBC (4.8 - 10.8 /CUMM) 8.7 RBC (4.70 - 6.10 /CUMM) 4.38 L Hgb (14.0 - 18.0 G/DL) 14.4 Hct (42 - 52 %) 43.7 MCV (80.0 - 94.0 FL) 99.7 H MCH (27.0 - 31.0 PG) 33.0 H MCHC (33.0 - 37.0 G/DL) 33.1 RDW (11.5 - 14.5 %) 14.1 Plt Count (130 - 400 /CUMM) 222 MPV (7.4 - 10.4 FL) 8.3 Gran % (42.2 - 75.2 %) 69.5 Lymphocytes % (20.5 - 51.1 %) 20.0 L Monocytes % (1.7 - 9.3 %) 9.8 H Eosinophils % (0 - 5 %) 0.4 Basophils % (0.0 - 2.0 %) 0.3 Absolute Granulocytes (1.4 - 6.5 /CUMM) 6.1 Absolute Lymphocytes (1.2 - 3.4 /CUMM) 1.7 Absolute Monocytes (0.10 - 0.60 /CUMM) 0.9 H Absolute Eosinophils (0.0 - 0.7 /CUMM) 0 Absolute Basophils (0.0 - 0.2 /CUMM) 0 Impression/Plan Impression/Plan Impression/Plan: Head normocephalic atraumatic Eyes sclera anicteric conjunctiva showed no pallor extraocular muscles were normal Neck no jugular venous distention no thyroid masses no palpable nodes Chest lungs were clear bilaterally Heart irregular rhythm with a ventricular rate around 86 Abdomen soft protuberant nontender umbilical hernia noted Extremities no clubbing cyanosis or edema. neurological no gross motor or sensory deficits 62-year-old with chronic hypercapnic respiratory failure developed acute hypoxic respiratory failure secondary to congestive heart failure. He is clinically improved. Has periumbilical hernia needs surg Resp failure resolved CHF improved JERRELL on cpap to cont bedtime pap Etoh abuse/htn pafib REC Ok for surg COnt prednisone 40 for one more days and dc Cont cpap
[2017-12-24 14:08] VITALS: BP 144/82
[2017-12-24] MEDS ORDERED: AMLODIPINE BESY10 M1 PO ×2 (15:17→15:19)
[2017-12-24] MEDS ORDERED: VENTOLIN HFA18 GM INH (15:19)
[2017-12-24] MEDS ORDERED: METFORMIN HCL500 M3 PO (15:21)
[2017-12-24] MEDS ORDERED: CELECOXIB200 M1 PO (15:21)
[2017-12-24] MEDS ORDERED: AMBIEN10 M1 PO (15:24)
[2017-12-24] MEDS ORDERED: ATORVASTATIN CA10 M1 PO (15:25)
[2017-12-24] MEDS ORDERED: POTASSIUM CHLO10 ME3 PO (15:26)
[2017-12-24] MEDS ORDERED: PRADAXA150 M1 PO (15:26)
--- NOTE | 2017-12-24 16:31 | PN- General Surgery ---
Subjective Subjective: followup hernia Discussed with primary team and patient was more alert issues of DTs and cardiac are resolved, optimized and is ready for surgery. Denies any nausea vomiting or abdominal pain. Objective Vital Signs and I&Os I reviewed Vital Signs Date Time Temp Pulse Resp B/P B/P Pulse O2 O2 Flow FiO2 Mean Ox Delivery Rate 12/24 1408 97.9 79 18 144/82 91 Nasal 2.0L Cannula 12/24 1400 95 12/24 1200 78 12/24 1000 88 12/24 0836 88 146/90 12/24 0836 88 146/90 12/24 0831 77 146/90 12/24 0800 98.0 78 20 122/80 12/24 0800 91 Nasal 2.0L Cannula 12/24 0600 98.0 78 20 122/80 91 Nasal Cannula 12/24 0000 Nasal 2.0L Cannula 12/23 2218 98.2 78 20 112/80 94 Nasal 2.0L Cannula 12/23 2200 98.2 78 20 112/80 12/23 2138 88 16 104/82 12/23 2010 88 104/82 12/23 2009 88 104/82 12/23 1800 88 16 82 I reviewed Intake & Output 12/24 1600 12/24 0800 12/24 0000 12/23 1600 12/23 0800 12/23 0000 Intake Total 100 310 776.9 1246.4 506.4 874.8 Output Total 2887 227 8887 200 600 Balance -1100 310 176.9 96.4 306.4 274.8 Intake, IV 100 250 416.9 526.4 406.4 304.8 Intake, Oral 60 360 720 100 570 Number 1 Bowel Movements Output, Urine 1308 969 7223 200 600 Patient 334 lb 344 lb Weight Weight Bed scale Measurement Method Physical Exam: Constitutional: no acute distress no pain Eyes: sclera anicteric ENMT: moist mucous membranes Cardiovascular: S1-S2 no murmurs no peripheral edema Respiratory: clear to auscultation with normal respiratory effort and no intercostal retractions GI: abdomen soft nontender nondistended Umbilical hernia no erythema is not tender Extremities / lymphatics: free range of motion no peripheral edema Skin: no jaundice no rashes warm, nondiaphoretic Psychiatric: mood and affect are appropriate and alert and oriented to person place and time Current Medications: I reviewed Current Medications Sig/Pablo Start time Last Medication Dose Route Stop Time Status Admin Albuterol Sulfate 2 PUF Q4P PRN 12/19 1030 AC INH Albuterol Sulfate 3 ML Q4P PRN 12/19 1030 DC INH Allopurinol 300 MG DAILY 12/20 0900 AC 12/24 PO 0836 Atorvastatin Calcium 10 MG 1700 12/19 1700 AC 12/23 PO 1611 Bisacodyl 5 MG DAILY PRN 12/21 1615 AC 12/22 PO 0746 Budesonide/ 2 PUF BID 12/19 2100 AC 12/24 Formoterol Fumarate INH 0843 Cyanocobalamin 250 MCG DAILY 12/20 0900 AC 12/24 PO 0837 Dextrose/Sodium 1,000 ML Q13H 12/24 0630 DC 12/24 Chloride IV 12/24 0900 0759 Diltiazem HCl 240 MG DAILY 12/20 0900 AC 12/24 PO 0835 Docusate Sodium 100 MG DAILY NEEDED PRN 12/21 1615 AC PO Docusate Sodium 100 MG DAILY 12/20 0900 AC 12/23 PO 0922 Fentanyl Citrate 100 MCG Q72 12/20 0900 12/23 TOP 0920 Folic Acid 1 MG DAILY 12/20 0900 AC 12/24 PO 0835 Furosemide 40 MG DAILY 12/23 0900 AC 12/24 PO 0836 Heparin Sodium 25,000 UNIT Q24H 12/20 1515 DC 12/23 (Porcine) IV 12/24 0600 1747 Sodium Chloride 500 ML Insulin Aspart 0 TIDAC 12/21 0800 DC 12/22 NC 1717 Insulin Human Regular 0 Q6 12/24 0600 12/24 SC 0803 Lisinopril 20 MG DAILY 12/20 0900 AC 12/24 PO 0836 Lorazepam 2 MG 0600,1800 12/23 1800 DC 12/24 PO 0538 Lorazepam 0 Q1P PRN 12/20 0830 AC 12/23 IV 2141 Melatonin 5 MG AT BEDTIME NEED.. 12/23 0245 AC 12/23 PO 0238 Metoprolol Tartrate 25 MG BID 12/21 0900 AC 12/24 PO 0836 Morphine Sulfate 2 MG Q4P PRN 12/19 1030 AC 12/24 IV 1414 Multivitamins 1 TAB DAILY 12/20 0900 AC 12/24 PO 0836 Nicotine 14 MG Q24 12/20 0900 AC 12/24 TOP 0836 Nystatin 1 JAY JAY BID 12/23 1147 12/23 TOP 2012 Ondansetron HCl 4 MG Q8P PRN 12/19 1030 AC IV Oxycodone HCl 20 MG 4 TIMES/DAY PRN 12/19 1030 AC 12/24 PO 1524 Potassium Chloride 10 MEQ DAILY 12/20 09 AC 12/24 PO 0836 Prednisone 40 MG DAILY 12/23 09 AC 12/24 PO 0924 Senna 187 MG AT BEDTIME 12/21 2100 AC 12/23 PO 2010 Thiamine HCl 100 MG DAILY 12/20 09 AC 12/24 PO 0837 Results Last 48 Hours of Labs: I reviewed Laboratory Tests 12/24 12/23 12/23 0647 2244 1025 Chemistry Sodium (137 - 145 mmol/L) 139 Potassium (3.5 - 5.1 mmol/L) 4.0 Chloride (98 - 107 mmol/L) 98 Carbon Dioxide (22 - 30 mmol/L) 34 H Anion Gap (5 - 16) 7 BUN (9 - 20 mg/dL) 18 Creatinine (0.7 - 1.2 mg/dL) 0.7 Estimated GFR (>60 ml/min) > 60 BUN/Creatinine Ratio (7 - 25 %) 25.7 H Magnesium (1.6 - 2.3 mg/dL) 1.8 Coagulation APTT (25 - 37 SEC) 107 *H 68 H Hematology CBC w Diff NO MAN DIFF REQ WBC (4.8 - 10.8 /CUMM) 7.7 RBC (4.70 - 6.10 /CUMM) 4.38 L Hgb (14.0 - 18.0 G/DL) 14.3 Hct (42 - 52 %) 43.6 MCV (80.0 - 94.0 FL) 99.5 H MCH (27.0 - 31.0 PG) 32.7 H MCHC (33.0 - 37.0 G/DL) 32.8 L RDW (11.5 - 14.5 %) 14.0 Plt Count (130 - 400 /CUMM) 205 MPV (7.4 - 10.4 FL) 8.3 Gran % (42.2 - 75.2 %) 64.2 Lymphocytes % (20.5 - 51.1 %) 24.3 Monocytes % (1.7 - 9.3 %) 10.8 H Eosinophils % (0 - 5 %) 0.2 Basophils % (0.0 - 2.0 %) 0.5 Absolute Granulocytes (1.4 - 6.5 /CUMM) 4.9 Absolute Lymphocytes (1.2 - 3.4 /CUMM) 1.9 Absolute Monocytes (0.10 - 0.60 /CUMM) 0.8 H Absolute Eosinophils (0.0 - 0.7 /CUMM) 0 Absolute Basophils (0.0 - 0.2 /CUMM) 0 12/23 12/22 0635 2155 Chemistry Sodium (137 - 145 mmol/L) 140 Potassium (3.5 - 5.1 mmol/L) 3.7 Chloride (98 - 107 mmol/L) 99 Carbon Dioxide (22 - 30 mmol/L) 32 H Anion Gap (5 - 16) 9 BUN (9 - 20 mg/dL) 22 H Creatinine (0.7 - 1.2 mg/dL) 0.7 Estimated GFR (>60 ml/min) > 60 BUN/Creatinine Ratio (7 - 25 %) 31.4 H Magnesium (1.6 - 2.3 mg/dL) 1.8 Coagulation APTT (25 - 37 SEC) 61 H Hematology CBC w Diff NO MAN DIFF REQ WBC (4.8 - 10.8 /CUMM) 8.7 RBC (4.70 - 6.10 /CUMM) 4.38 L Hgb (14.0 - 18.0 G/DL) 14.4 Hct (42 - 52 %) 43.7 MCV (80.0 - 94.0 FL) 99.7 H MCH (27.0 - 31.0 PG) 33.0 H MCHC (33.0 - 37.0 G/DL) 33.1 RDW (11.5 - 14.5 %) 14.1 Plt Count (130 - 400 /CUMM) 222 MPV (7.4 - 10.4 FL) 8.3 Gran % (42.2 - 75.2 %) 69.5 Lymphocytes % (20.5 - 51.1 %) 20.0 L Monocytes % (1.7 - 9.3 %) 9.8 H Eosinophils % (0 - 5 %) 0.4 Basophils % (0.0 - 2.0 %) 0.3 Absolute Granulocytes (1.4 - 6.5 /CUMM) 6.1 Absolute Lymphocytes (1.2 - 3.4 /CUMM) 1.7 Absolute Monocytes (0.10 - 0.60 /CUMM) 0.9 H Absolute Eosinophils (0.0 - 0.7 /CUMM) 0 Absolute Basophils (0.0 - 0.2 /CUMM) 0 Assessment/Plan Assessment/Plan My impression is symptomatic ventral (umbilical) hernia. The current standard of care is repair with MESH, preferably not emergently. We usually approach these laparoscopically if possible, but because this one is smaller, in him if possible, I would rather close it over mesh, which should be more durable and is simpler when done in an open fashion. I explained that hernias do not heal themselves, often enlarge, and can get complicated especially if bowel gets suddenly caught in there, it could become irreversibly injured, leading to emergency surgery and associated morbidity. This event is rare and unpredictable but we recommend repair anyway because results are usually better when these are repaired while smaller. I claudio a diagram illustrating the anatomy of the hernia and where the mesh is placed. Avoiding recurrence is the main objective of the repair and avoiding straining postop. Other risks were also discussed such as infection, injury to other surrounding structures such as bowel and blood vessels. We also discussed the potential risks, benefits and alternatives to the procedure and surgery in general, issues that included but were not limited to, anesthetic risk, hemorrhage requiring transfusion, the risk of transfusion itself, infection, heart attack, stroke, . I explained the importance of Hx of smoking as it pertains to surgery, especially with general anesthesia and healing. Problem List: 1. Incarcerated umbilical hernia 2. COPD (chronic obstructive pulmonary disease) 3. Atrial fibrillation 4. USP current use of anticoagulant Core Measures Venous Thromboembolism VTE Risk Factors Surgery No Mechanical VTE Prophylaxis d/t N/A MechProphylax Ordered No VTE Pharm Prophylaxis d/t Surgical Contraindication
--- NOTE | 2017-12-24 20:56 | Discharge Summary ---
Visit Information Visit Dates Admission Date: 12/17/17 Discharge Date: 12/29/17 Hospital Course Course Attending Physician: Rachelle Pitt MD Primary Care Physician: Jose A Melendez DO Hospital Course: Mr Cervantes is a 62 yo M with PMH significant for COPD, A.fib on pradaxa, JERRELL (not compliant with CPAP) and hypertension who presented to [facility] with complains of abdominal pain. Below is a list of conditions he was seen and treated for: Acute Hypoxic Respiratory Failure with Chronic Hypercapnic Respiratory Failure Umbilical Hernia Alcohol Detox Atrial Fibrilliation with RVR On admission patient was found to have an umbilical hernia. He was initially admitted to the general medicine floor with preop preparations for surgery. However, on the day of surgery, patient was found to be experiencing from significant alcohol withdrawal and while he does carry a diagnosis of atrial fibrilliation, he was found to be in rapid ventricular rate. The rapid heart rate could have been precipitated in the setting of alcohol withdrawal. He was transferred to the telemetry floor for further monitoring. He was started on Ativan for his alcohol withdrawal. His Diltiazem was continued and PO metoprolol was added to his regimen with gradual uptitration till an acceptable heart rate was achieved. CXR showed signs of pulmonary edema. He was temporarily treated with IV Lasix for diuresis with eventual switch to PO home dose. His respiratory status had an undulating course with days where he required high flow oxygen, including one night requiring the need for BiPAP and days requiring O2 via NC. He does have a history of JERRELL but he is noncompliant with his CPAP. His blood gas showed elevated bicarbonate suggesting that he may have some component of OHS. As his condition improved, with stablization of his heart and respiratory status and treatment of alcohol detox, he was deemed stable for surgery. On 12/24/17, he underwent repair of his umbilical hernia without any complications. Postoperatively he did well. His wound site was evaluated by surgery and dressings changed as necessary. His Pradaxa that was held preoperatively was restarted after the surgery. At the time of discharge, his oxygen was weaned off and he was saturating well on room air. He was discharged in stable disposition with recommendations to follow up his general surgeon and other specialists within one week of discharge. Allergies: Coded Allergies: NO KNOWN ALLERGIES (10/26/16) Significant Procedures: SERVICE DATE: 05 EXAM TYPE: RAD - XRY-CHEST XRAY, TWO VIEWS FINDINGS: The cardiomediastinal silhouette is enlarged, unchanged from 12/25/2017 but significantly increased in size even allowing for differences in technique compared to 05/10/2011, suggesting a dilated cardiomyopathy. Lungs bilaterally are symmetrically expanded and demonstrate minimal bibasilar linear atelectatic changes minimal central vascular congestion. No overt pulmonary edema, focal consolidation, effusion or pneumothorax is seen. Mild vertebral spondylosis seen in the mid and lower thoracic spine. Bony structures are otherwise unremarkable. IMPRESSION: 1. Cardiomegaly. 2. Minimal central vascular congestion. No pulmonary edema. 3. Minimal atelectatic changes in the lung bases bilaterally. SERVICE DATE: 12/25/17- EXAM TYPE: RAD - XRY-CHEST XRAY, TWO VIEWS FINDINGS: Study is technically challenging secondary to patient body habitus. There is persistent severe cardiomegaly. Mild prominence of the central pulmonary vascular structures and interstitial markings is stable. There are trace bilateral pleural effusions. No convincing consolidation. There is likely bibasilar atelectasis. Visualized osseous structures appear intact. IMPRESSION: Challenging limited study. Likely improvement overall in terms of fluid overload. Trace bilateral pleural effusions. No convincing pneumonia. Persistent severe cardiomegaly. SERVICE DATE: 12/22/17 EXAM TYPE: RAD - XRY-CHEST XRAY, TWO VIEWS FINDINGS: The heart is enlarged, stable. There is persistent central vascular congestion, with interstitial prominence correlating with mild interstitial pulmonary edema. There is interval development of right basilar patchy airspace disease. Persistent opacity in the left retrocardiac region, could represent airspace consolidation in this region. A small left-sided pleural effusion is suspected. IMPRESSION: Stable cardiomegaly. Findings compatible with persistent interstitial pulmonary edema. Right basilar atelectasis or pneumonia. Left basilar opacities could be secondary to overlapping structures, with airspace disease not excluded. Suspect small left pleural effusion. SERVICE DATE: 12/20/17 EXAM TYPE: CARD - ECHOCARDIOGRAM FINDINGS Left Ventricle Normal size left ventricle. Left ventricular wall thickness moderately increased. Normal left ventricular ejection fraction estimated at 55-60%. Right Ventricle Normal right ventricular size and function. Right Atrium Mild to moderate right atrial dilatation. Left Atrium Moderate to severe left atrial dilatation. Mitral Valve Mild mitral annular calcification. Moderate mitral regurgitation. Aortic Valve Aortic valve not well visualized, grossly normal. Tricuspid Valve Tricuspid valve is normal in structure and function. Mild tricuspid regurgitation. Right ventricular systolic pressure estimated to be at upper limits of normal at 30 mmHg. Pulmonic Valve Pulmonic valve not well visualized, grossly normal. Pericardium Minimal pericardial effusion (normal variant). Great Vessels Normal size aortic root and proximal ascending aorta. CONCLUSIONS Normal left and right ventricular systolic function. Moderate LVH. Biatrial enlargement. Moderate Mitral regurgitation. SERVICE DATE: 12/19/17 EXAM TYPE: RAD - XRY-PORTABLE CHEST XRAY FINDINGS: There is central vascular congestion without overt alveolar edema. There is possible interstitial edema. No pleural effusion or pneumothorax. The left lung bases not well evaluated but this is likely due to patient's large body habitus and portable technique. There is atelectasis at the right lung base. The heart is enlarged. IMPRESSION: Central vascular congestion with possible interstitial edema. Right basilar atelectasis. Cardiomegaly. SERVICE DATE: 12/17/17- EXAM TYPE: RAD - XRY-PORTABLE CHEST XRAY FINDINGS: The evaluation is technically limited due to positioning and portable nature. The left lung base is not optimally evaluated. The cardiomediastinal silhouette is at least moderately enlarged. There is mild pulmonary venous prominence noted at both upper lobes, likely represent mild CHF. There is trace amount of fluid noted within the right minor fissure. There is no right-sided pleural effusion present. Presence or absence of small left-sided pleural effusion cannot be evaluated on this radiograph. IMPRESSION: 1. Technically limited study. Dedicated frontal, lateral view of the chest may be considered for further full detail evaluation, if clinically appropriate. 2. On these limited images, there is suggestion of at least moderate enlargement of the cardiomediastinal silhouette, mild pulmonary venous congestion, and a trace amount of effusion within the right minor fissure. SERVICE DATE: 12/16/17 EXAM TYPE: CAT - CT ABD & PELVIS W IV CONTRAST FINDINGS: LUNG BASES: Basilar atelectasis. Coronary artery calcifications. The heart is mildly enlarged. LIVER, GALLBLADDER, AND BILIARY TREE: The liver is normal in size, shape, and attenuation. There is a 2.2 cm cyst in segment 5 of the liver. No solid hepatic lesion or biliary ductal dilatation is present. There is layering high attenuation within the gallbladder lumen suggestive of sludge. No gallbladder wall thickening or pericholecystic fluid. PANCREAS: Unremarkable. SPLEEN: Unremarkable. ADRENAL GLANDS: Unremarkable. KIDNEYS AND URETERS: The kidneys are normal in size, shape, and attenuation. No hydronephrosis, hydroureter, or calculi seen. Mild symmetric perinephric stranding. There is a 2 cm cortical cyst at the lower pole of the left kidney. BLADDER: Unremarkable. GASTROINTESTINAL TRACT: The stomach is decompressed with no gross abnormality. The proximal small bowel is normal in caliber. There is no obstruction. Small bowel extends into a prominent periumbilical hernia. There is stranding in the region of the bowel with mild fluid-filled prominent appearance. Bowel enters and exits the hernia twice. Gas and stool are seen in the colon. No colonic wall thickening. No free air. No fluid collection. ABDOMINAL WALL: Prominent ventral periumbilical hernia containing small bowel. The abdominal wall defect measures 4.7 cm transverse by 3.9 cm cc. The hernia sac measures 12.5 x 8.3 x 10.4 cm. Small fat-containing right inguinal hernia also noted. LYMPH NODES: Normal. VASCULAR: Ectatic infrarenal abdominal aorta measuring 3.7 cm AP. Moderate atherosclerotic calcifications. PELVIC VISCERA: The prostate and seminal vesicles are unremarkable. OSSEOUS STRUCTURES: No acute or suspicious osseous abnormality. Moderate degenerative changes throughout the spine. Moderate degenerative changes of the hips. IMPRESSION: Prominent periumbilical hernia containing loops of small bowel which are mildly prominent fluid-filled. Mild stranding is seen in the associated fat. This may represent an incarcerated hernia. There is no evidence of bowel obstruction at this time, with the remainder of the small bowel normal in caliber and gas and stool seen throughout the colon. Additional findings as above, including cysts in the liver and left kidney. Gallbladder sludge. Ectatic infrarenal abdominal aorta. 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 Please follow up with your general surgeon within 1 week of discharge. Medications at Discharge Discharge Medications: Stop taking the following medications: Amlodipine Besylate (Amlodipine Besylate) 10 MG TABLET ORAL DAILY Qty = 30 Continue taking these medications: Allopurinol (Allopurinol) 300 MG TABLET 1 Tablet ORAL DAILY Comments: Last Taken:12/29/17 Time: 9:00 AM Oxycodone HCl (Oxycodone HCl) 20 MG TABLET 1 Tablet ORAL Every 4 hours Qty = 30 Lisinopril/Hydrochlorothiazide (Lisinopril-Hctz 20-25 MG Tab) 20 MG-25 MG TABLET 1 Tablet ORAL DAILY Comments: Last Taken:12/29/17 Time: 9:00 AM Alprazolam (Xanax) 0.5 MG TABLET 1 Tablet ORAL 2 x Daily as needed as needed for ANXIETY Comments: Last Taken:12/29/17 Time: 12:30 AM Fentanyl Citrate (Duragesic) 100 MCG/HOUR PATCH.TD72 1 Patch On the skin EVERY 48 HOURS (Every 2 days) Qty = 10 Comments: Last Taken:12/26/17 Time: 9:00 AM Budesonide/Formoterol Fumarate (Symbicort 160-4.5 Mcg Inhaler) 160 MCG-4.5 MCG/ ACTUATION HFA.AER.AD 2 Puff Inhale through mouth TWICE DAILY Comments: Last Taken:12/29/17 Time: 9:00 AM Furosemide (Furosemide) 40 MG TABLET 1 Tablet ORAL DAILY Comments: Last Taken:12/29/17 Time: 9:00 AM Cyanocobalamin (Vitamin B-12) (Vitamin B-12) 250 MCG TABLET 1 Tablet ORAL DAILY Comments: Last Taken:12/29/17 Time: 9:00 AM Metformin HCl (Metformin HCl) 500 MG TABLET 1 Tablet ORAL TWICE DAILY Qty = 30 Comments: NOT GIVEN WHILE IN HOSPITAL Celecoxib (Celecoxib) 200 MG CAPSULE 1 Capsule ORAL TWICE DAILY Qty = 30 Comments: NOT GIVEN WHILE IN HOSPITAL Zolpidem Tartrate (Ambien) 10 MG TABLET 1 Tablet ORAL Every night as needed Qty = 30 Comments: NOT GIVEN WHILE IN HOSPITAL Atorvastatin Calcium (Atorvastatin Calcium) 10 MG TABLET 1 Tablet ORAL DAILY Qty = 30 Comments: Last Taken:12/28/17 Time: 5:30 PM Potassium Chloride (Potassium Chloride) 10 MEQ CAPSULE.ER 1 Capsule ORAL DAILY Qty = 30 Comments: Last Taken:12/29/17 Time: 9:00 AM Dabigatran Etexilate Mesylate (Pradaxa 150 MG) 150 MG CAPSULE 1 Capsule ORAL TWICE DAILY Qty = 60 Comments: Last Taken:12/29/17 Time: 9:00 AM Diltiazem HCl (Diltiazem 24HR ER) 360 MG CAP.ER.24H 1 Capsule ORAL DAILY Qty = 30 Comments: Last Taken:12/29/17 Time: 9:00 AM Albuterol Sulfate (Proair Hfa) 90 MCG HFA.AER.AD 2 Puff Inhale through mouth EVERY 4 HOURS NEEDED as needed for Shortness of breath Qty = 1 Comments: NOT GIVEN WHILE IN HOSPITAL Start taking the following new medications: Metoprolol Tartrate (Metoprolol Tartrate) 50 MG TABLET 1 Tablet ORAL TWICE DAILY Qty = 60 No Refills Comments: Last Taken:12/29/17 Time: 9:00 AM Docusate Sodium (Colace) 100 MG CAPSULE 1 Capsule ORAL DAILY as needed for Constipation Qty = 30 No Refills Comments: Last Taken:12/29/17 Time: 9:00 AM Sennosides (Senna) 8.6 MG TABLET 2 Tablet ORAL DAILY as needed for Constipation Qty = 60 No Refills Comments: NOT GIVEN WHILE IN HOSPITAL Copies To: Jose A Melendez DO
[2017-12-24 21:31] VITALS: BP 150/100
[2017-12-25] VITALS (13 sets, daily range): BP systolic 140–160; BP diastolic 88–110
--- NOTE | 2017-12-25 08:09 | PN- Housestaff ---
See Addendum Subjective Follow-up For: Bhumika Umbilical Hernia Alcohol Detox Acute Hypoxic Respiratory Failure Tele-Events Since Last Visit: Bhumika with HR 91-111. Subjective: Patient states feeling sore this morning. He still has significant pain around the surgical site and that the oxycodone hasn't provided much relief. Feels his breathing is okay despite being on high flow. Review of Systems Constitutional: Reports: no symptoms. Objective Last 24 Hrs of Vital Signs/I&O Vital Signs Date Time Temp Pulse Resp B/P B/P Pulse O2 O2 Flow FiO2 Mean Ox Delivery Rate 12/25 08 98.0 100 20 154/96 12/25 0646 98.0 100 20 154/96 92 Non ReBreather 12/25 0541 92 Nasal 50% Cannula 12/25 0200 99.1 88 20 160/94 95 Non ReBreather 12/25 0010 93 Nasal 50% Cannula 12/25 0000 94 Nasal 50% Cannula 12/24 2143 100 150/100 12/24 2131 98.0 100 18 150/100 93 50% 12/24 1550 78 12/24 1550 91 Nasal 2.0L Cannula 12/24 1408 97.9 79 18 144/82 91 Nasal 2.0L Cannula 12/24 1400 95 12/24 1200 78 12/24 1000 88 12/24 0836 88 146/90 12/24 0836 88 146/90 12/24 0831 77 146/90 Intake & Output 12/25 1600 12/25 0800 12/25 0000 Intake Total 120 120 Output Total 450 Balance -330 120 Intake, Oral 120 120 Output, Urine 450 Patient 344 lb Weight Physical Exam General Appearance: Alert, Oriented X3, Cooperative, Mild Distress Skin: No Rashes, No Breakdown Skin Temp/Moisture Exam: Warm/Dry Sepsis Skin Exam (color): Normal for Ethnicity HEENT: Atraumatic Cardiovascular: Normal S1, Normal S2, No Murmurs Lungs: Clear to Auscultation, Normal Air Movement Abdomen: Soft, No Tenderness, surgical site dressed and intact Neurological: Normal Speech Extremities: No Edema Last 24 Hrs of Lab/Timothy Results Last 24 Hrs of Labs/Mics: Laboratory Tests 12/25/17 0635: Anion Gap 10, Estimated GFR > 60, BUN/Creatinine Ratio 28.3 H, Magnesium 1.8, CBC w Diff NO MAN DIFF REQ, RBC 4.65 L, MCV 99.8 H, MCH 33.0 H, MCHC 33.1, RDW 13.9, MPV 8.9, Gran % 82.4 H, Lymphocytes % 7.0 L, Monocytes % 10.5 H, Eosinophils % 0, Basophils % 0.1, Absolute Granulocytes 10.6 H, Absolute Lymphocytes 0.9 L, Absolute Monocytes 1.4 H, Absolute Eosinophils 0, Absolute Basophils 0 Assessment/Plan Assessment: 62 YO M with PMH significant for COPD, A.fib on pradaxa, JERRELL (not compliant with CPAP), Psoriatic arthritis, Venous insufficiency, regular alcohol consumption, HTN presented to [facility] after developing abdominal pain this evening. Assessment: 1. Acute Hypoxic Respiratory Failure with Chronic Hypercapnic Respiratory Failure 2. Umbilical Hernia 3. Alcohol Detox 4. Atrial Fibrilliation with RVR 5. History of COPD 6. History of JERRELL Plan: * Continue oxygen supplementation to maintain target sats > 92%. Currently on 50 % high flow. Will need to be weaned off oxygen before discharge. * Pain control with IV Dilaudidd 1mg q6p * Can consider discharge tomorrow if stable. * TRC/Nebs as needed. * Pulm recs appreciated * Discontinue prednisone today. * Continue metoprolol 25mg BID. * Continue PO Lasix 40mg daily. * Restart Pradaxa 150mg BID today. * Continue Diltiazem 240mg daily. * Echocardiogram - Normal left and right ventricular systolic function. Moderate mitral regurgitation. * Off Ativan * Continue thiamine, folic acid, multivitamins * Monitor electrolytes and replete as needed. * Nicotine patch 14mg daily. * Diet: Heart Healthy. * DVT Prophylaxis: Pradaxa * Code Status: Full Code Problem List: 1. Atrial fibrillation Pain Ratin Pain Location: none Pain Goal: Remain pain free Pain Plan: none Tomorrow's Labs & Rationales: CBC, bep, Mg
--- NOTE | 2017-12-25 08:25 | PN- General Surgery ---
See Addendum Subjective Subjective: 62 y/o male POD1 umbilical hernia repair did well overnight and pain controlled no fevers or chills no wound drainage Review of Systems Constitutional: Denies: chills, fever, weakness. Cardiovascular: Denies: chest pain, palpitations. Respiratory: Denies: cough, short of breath. Gastrointestinal: Reports: abdominal pain, distention. Objective Vital Signs and I&Os Vital Signs Date Time Temp Pulse Resp B/P B/P Pulse O2 O2 Flow FiO2 Mean Ox Delivery Rate 12/25 0800 98.0 100 20 154/96 12/25 0646 98.0 100 20 154/96 92 Non ReBreather 12/25 0541 92 Nasal 50% Cannula 12/25 0200 99.1 88 20 160/94 95 Non ReBreather 12/25 0010 93 Nasal 50% Cannula 12/25 0000 94 Nasal 50% Cannula 12/24 2143 100 150/100 12/24 2131 98.0 100 18 150/100 93 50% 12/24 1550 78 12/24 1550 91 Nasal 2.0L Cannula 12/24 1408 97.9 79 18 144/82 91 Nasal 2.0L Cannula 12/24 1400 95 12/24 1200 78 12/24 1000 88 12/24 0836 88 146/90 12/24 0836 88 146/90 12/24 0831 77 146/90 Intake & Output 12/25 1600 12/25 0800 12/25 0000 12/24 1600 12/24 0800 12/24 0000 Intake Total 120 120 100 310 776.9 Output Total 450 1200 600 Balance -330 120 -1100 310 176.9 Intake, IV 100 250 416.9 Intake, Oral 120 120 60 360 Output, Urine 450 1200 600 Patient 344 lb 334 lb Weight Physical Exam: alert and oriented- complains of generalized abdominal soreness chest- CTA symmetric Heart - tachy to 100's, irregular abdomen - rounded, tenderness throughtout pos BS bilateral lower extremities soft, no edema Admission Lab Results I reviewed the following labs: Laboratory Tests 12/25 634 Chemistry Sodium (137 - 145 mmol/L) 140 Potassium (3.5 - 5.1 mmol/L) 4.5 Chloride (98 - 107 mmol/L) 99 Carbon Dioxide (22 - 30 mmol/L) 31 H Anion Gap (5 - 16) 10 BUN (9 - 20 mg/dL) 17 Creatinine (0.7 - 1.2 mg/dL) 0.6 L Estimated GFR (>60 ml/min) > 60 BUN/Creatinine Ratio (7 - 25 %) 28.3 H Magnesium (1.6 - 2.3 mg/dL) 1.8 Hematology CBC w Diff Pending WBC Pending RBC Pending Hgb Pending Hct Pending MCV Pending MCH Pending MCHC Pending RDW Pending Plt Count Pending MPV Pending Assessment/Plan Assessment/Plan POD 1 sliding umbilical hernia repair OOB to chair and ambulation advance diet if cleared medically may be discharged today restart pradaxa and D/C hep drip Core Measures Venous Thromboembolism VTE Risk Factors Surgery No Mechanical VTE Prophylaxis d/t N/A MechProphylax Ordered No VTE Pharm Prophylaxis d/t Surgical Contraindication
[2017-12-25 08:34] LABS: ABSOLUTE BASOPHIL COUNT 0 /CUMM (0.0-0.2); ABSOLUTE EOSINOPHIL COUNT 0 /CUMM (0.0-0.7); ABSOLUTE GRANULOCYTE CT 10.6 /CUMM (1.4-6.5); ABSOLUTE LYMPH COUNT 0.9 /CUMM (1.2-3.4); ABSOLUTE MONOCYTE COUNT 1.4 /CUMM (0.10-0.60); BASOPHIL % 0.1 % (0.0-2.0); EOSINOPHIL % 0 % (0-5); GRANULOCYTE % 82.4 % (42.2-75.2); HEMATOCRIT 46.4 % (42-52); MEAN CORPUSCULAR HGB CONC 33.1 G/DL (33.0-37.0); MEAN CORPUSCULAR VOLUME 99.8 FL (80.0-94.0); MEAN PLATELET VOLUME 8.9 FL (7.4-10.4); PLATELET COUNT 239 /CUMM (130-400); RBC DISTRIBUTION WIDTH 13.9 % (11.5-14.5); RED BLOOD CELL CT 4.65 /CUMM (4.70-6.10)
[2017-12-25 10:56] LABS: WHITE BLOOD CELL COUNT 12.9 /CUMM (4.8-10.8)
[2017-12-25] MEDS ORDERED: DILTIAZEM 24HR360 MG PO (11:29)
--- NOTE | 2017-12-25 13:34 | PN- Pulmonary ---
Subjective HPI/Critical Care Issues: Patient seen and examined this morning. He is post op inguinal hernia repair. His pain is moderate and being controlled with pain medications. His respiratory status has improved however he is currently on 50% high flow. He has difficulty taking deep breaths given recent surgery but he has begun using the incentive spirometer. Objective Current Medications: Current Medications Sig/Pablo Start time Last Medication Dose Route Stop Time Status Admin Albuterol Sulfate 2 PUF Q4P PRN 12/19 1030 AC INH Albuterol Sulfate 3 ML Q4P PRN 12/19 1030 DC INH Allopurinol 300 MG DAILY 12/20 09 AC 12/25 PO 0859 Atorvastatin Calcium 10 MG 1700 12/19 1700 AC 12/24 PO 2143 Bisacodyl 5 MG DAILY PRN 12/21 1615 AC 12/22 PO 0746 Budesonide/ 2 PUF BID 12/19 2100 AC 12/25 Formoterol Fumarate INH 0904 Cyanocobalamin 250 MCG DAILY 12/20 09 AC 12/25 PO 0859 Dabigatran 150 MG BID 12/25 09 AC 12/25 PO 1007 Dexamethasone 4 MG .STK-MED ONE 12/24 1618 DC IM 12/24 1619 Diltiazem HCl 240 MG DAILY 12/20 09 AC 12/25 PO 0858 Docusate Sodium 100 MG DAILY NEEDED PRN 12/21 161 AC PO Docusate Sodium 100 MG DAILY 12/20 09 AC 12/25 PO 0858 Fentanyl Citrate 250 MCG .STK-MED ONE 12/24 1618 WV IM 12/24 1619 Fentanyl Citrate 100 MCG Q72 12/20 09 12/23 TOP 0920 Folic Acid 1 MG DAILY 12/20 09 AC 12/25 PO 0858 Furosemide 40 MG DAILY 12/23 0900 12/25 PO 0858 Heparin Sodium 25,000 UNIT Q24H 12/25 08 WV 12/25 (Porcine) IV 0752 Sodium Chloride 500 ML Hydromorphone HCl 1 MG Q6P PRN 12/25 1045 AC IV Hydromorphone HCl 1 MG ONCE ONE 12/25 0900 WV 12/25 IV 12/25 0901 0902 Hydromorphone HCl 2 MG .STK-MED ONE 12/24 2005 DC IM 12/24 2007 Hydromorphone HCl 2 MG .STK-MED ONE 12/24 1618 DC IM 12/24 1619 Insulin Aspart 0 TIDAC 12/25 0800 DC SC Insulin Aspart 0 TIDAC 12/24 2145 AC SC Insulin Human Regular 0 Q6 12/24 0600 DC 12/24 SC 0803 Lisinopril 20 MG DAILY 12/20 0900 12/25 PO 0858 Lorazepam 0 Q1P PRN 12/20 0830 12/23 IV 2141 Magnesium Sulfate 1 GM ONCE ONE 12/25 1145 AC 12/25 Dextrose/Water 100 ML IV 12/25 1544 1233 Melatonin 5 MG .STK-MED ONE 12/25 0044 DC PO 12/25 0045 Melatonin 5 MG AT BEDTIME NEED.. 12/23 0245 AC 12/25 PO 0039 Metoprolol Tartrate 25 MG BID 12/21 0900 12/25 PO 0858 Midazolam HCl 5 MG .STK-MED ONE 12/24 1618 DC IM 12/24 1619 Morphine Sulfate 2 MG Q4P PRN 12/19 1030 12/24 IV 2315 Multivitamins 1 TAB DAILY 12/20 09 12/25 PO 0858 Nicotine 14 MG Q24 12/20 0900 12/25 TOP 0858 Nystatin 1 JAY JAY BID 12/23 1147 12/25 TOP 0903 Ondansetron HCl 8 MG .STK-MED ONE 12/24 1618 DC IM 12/24 1619 Ondansetron HCl 4 MG Q8P PRN 12/19 1030 DC IV Oxycodone HCl 20 MG 4 TIMES/DAY PRN 12/19 1030 AC 12/25 PO 1239 Potassium Chloride 10 MEQ DAILY 12/20 0900 12/25 PO 0858 Prednisone 40 MG DAILY 12/23 0900 WV 12/25 PO 0858 Senna 187 MG AT BEDTIME 12/21 2100 AC 12/24 PO 2143 Thiamine HCl 100 MG DAILY 12/20 0900 12/25 PO 0859 Tramadol HCl 50 MG ONCE ONE 12/25 0045 DC 12/25 PO 12/25 0046 0050 Vital Signs & I&O Last 24 Hrs of Vitals and I&O: Vital Signs Date Time Temp Pulse Resp B/P B/P Pulse O2 O2 Flow FiO2 Mean Ox Delivery Rate 12/25 1238 93 Nasal 50% Cannula 12/25 1200 96 16 140/88 12/25 1200 96 16 140/88 90 Nasal 50% Cannula 12/25 1000 85 16 154/96 12/25 0910 90 Nasal 50% Cannula 12/25 0858 110 142/96 12/25 0858 110 142/96 12/25 0856 110 18 142/96 91 Nasal 50% Cannula 12/25 0800 98.0 100 20 154/96 12/25 0800 91 Nasal 50% Cannula 12/25 0646 98.0 100 20 154/96 92 Non ReBreather 12/25 0541 92 Nasal 50% Cannula 12/25 0200 99.1 88 20 160/94 95 Non ReBreather 12/25 0010 93 Nasal 50% Cannula 12/25 0000 94 Nasal 50% Cannula 12/24 2143 100 150/100 12/24 2131 98.0 100 18 150/100 93 50% 12/24 1550 78 12/24 1550 91 Nasal 2.0L Cannula 12/24 1408 97.9 79 18 144/82 91 Nasal 2.0L Cannula 12/24 1400 95 Intake & Output 12/25 1600 12/25 0800 12/25 0000 Intake Total 120 120 Output Total 177 450 Balance -177 -330 120 Intake, Oral 120 120 Output, Urine 177 450 Patient 344 lb Weight Exam Other Physical Findings: Patient is awake and alert. He has a high flow nasal cannula and hishis cardiac exam reveals an S1 and an S2. His lung examination shows reduced breath sounds at the bases. Extremities without edema. Results Last 24 Hrs of Lab Results: Laboratory Tests 12/25/17 0635: Anion Gap 10, Estimated GFR > 60, BUN/Creatinine Ratio 28.3 H, Magnesium 1.8, CBC w Diff NO MAN DIFF REQ, RBC 4.65 L, MCV 99.8 H, MCH 33.0 H, MCHC 33.1, RDW 13.9, MPV 8.9, Gran % 82.4 H, Lymphocytes % 7.0 L, Monocytes % 10.5 H, Eosinophils % 0, Basophils % 0.1, Absolute Granulocytes 10.6 H, Absolute Lymphocytes 0.9 L, Absolute Monocytes 1.4 H, Absolute Eosinophils 0, Absolute Basophils 0 Impression/Plan Impression/Plan Impression/Plan: Impression 62-year-old man * Acute hypoxemic respiratory failure on chronic respiratory failure. This is likely hypoventilation in the setting of obstructive sleep apnea that the patient has declined to use therapy for. He has a history of COPD as well that could be contributory and congestive heart disease. * Postop for inguinal hernia repair Plan -Continue to follow off prednisone -Reduce FiO2 as tolerated above 88% SPO2 -Obtain chest x-ray today -Ensure the patient has a net negative to even fluid balance -Incentive spirometry was encouraged and counseled DVT prophylaxis at all times
--- NOTE | 2017-12-25 13:50 | PN- Cardiology ---
Subjective Subjective: No chest pain. Shortness of breath improving. No palpitations. No diaphoresis. No nausea or vomiting. Objective Vital Signs and I&Os Vital Signs Date Time Temp Pulse Resp B/P B/P Pulse O2 O2 Flow FiO2 Mean Ox Delivery Rate 12/25 1238 93 Nasal 50% Cannula 12/25 1200 96 16 140/88 12/25 1200 96 16 140/88 90 Nasal 50% Cannula 12/25 1000 85 16 154/96 12/25 0910 90 Nasal 50% Cannula 12/25 0858 110 142/96 12/25 0858 110 142/96 12/25 0856 110 18 142/96 91 Nasal 50% Cannula 12/25 0800 98.0 100 20 154/96 12/25 0800 91 Nasal 50% Cannula 12/25 0646 98.0 100 20 154/96 92 Non ReBreather 12/25 0541 92 Nasal 50% Cannula 12/25 0200 99.1 88 20 160/94 95 Non ReBreather 12/25 0010 93 Nasal 50% Cannula 12/25 0000 94 Nasal 50% Cannula 12/24 2143 100 150/100 12/24 2131 98.0 100 18 150/100 93 50% 12/24 1550 78 12/24 1550 91 Nasal 2.0L Cannula 12/24 1408 97.9 79 18 144/82 91 Nasal 2.0L Cannula 12/24 1400 95 Intake & Output 12/25 1600 12/25 0800 12/25 0000 12/24 1600 12/24 0800 12/24 0000 Intake Total 120 120 100 310 776.9 Output Total 372 104 0806 600 Balance -177 -330 120 -1100 310 176.9 Intake, IV 100 250 416.9 Intake, Oral 120 120 60 360 Output, Urine 729 402 5782 600 Patient 344 lb 334 lb Weight Physical Exam: Gen: NAD HEENT: normal Lungs: clear to auscultation, normal resp. effort Heart: Irregularly irregular, S1, S2, no murmurs Abdomen: Soft, nontender, no masses Extremities: No clubbing, cyanosis, or edema. Neuro: Alert and oriented x 3, cranial nerves intact Current Medications: Current Medications Sig/Pablo Start time Last Medication Dose Route Stop Time Status Admin Albuterol Sulfate 2 PUF Q4P PRN 12/19 1030 AC INH Albuterol Sulfate 3 ML Q4P PRN 12/19 1030 DC INH Allopurinol 300 MG DAILY 12/20 0900 AC 12/25 PO 0859 Atorvastatin Calcium 10 MG 1700 12/19 1700 AC 12/24 PO 2143 Bisacodyl 5 MG DAILY PRN 12/21 1615 AC 12/22 PO 0746 Budesonide/ 2 PUF BID 12/19 2100 AC 12/25 Formoterol Fumarate INH 0904 Cyanocobalamin 250 MCG DAILY 12/20 0900 AC 12/25 PO 0859 Dabigatran 150 MG BID 12/25 0900 AC 12/25 PO 1007 Dexamethasone 4 MG .STK-MED ONE 12/24 1618 DC IM 12/24 1619 Diltiazem HCl 240 MG DAILY 12/20 0900 AC 12/25 PO 0858 Docusate Sodium 100 MG DAILY NEEDED PRN 12/21 1615 AC PO Docusate Sodium 100 MG DAILY 12/20 0900 AC 12/25 PO 0858 Fentanyl Citrate 250 MCG .STK-MED ONE 12/24 1618 DC IM 12/24 1619 Fentanyl Citrate 100 MCG Q72 12/20 0900 AC 12/23 TOP 0920 Folic Acid 1 MG DAILY 12/20 0900 AC 12/25 PO 0858 Furosemide 40 MG DAILY 12/23 0900 AC 12/25 PO 0858 Heparin Sodium 25,000 UNIT Q24H 12/25 0800 DC 12/25 (Porcine) IV 0752 Sodium Chloride 500 ML Hydromorphone HCl 1 MG Q6P PRN 12/25 1045 AC IV Hydromorphone HCl 1 MG ONCE ONE 12/25 0900 DC 12/25 IV 12/25 0901 0902 Hydromorphone HCl 2 MG .STK-MED ONE 12/24 2005 DC IM 12/24 2007 Hydromorphone HCl 2 MG .STK-MED ONE 12/24 1618 DC IM 12/24 1619 Insulin Aspart 0 TIDAC 12/25 0800 DC SC Insulin Aspart 0 TIDAC 12/24 2145 AC SC Insulin Human Regular 0 Q6 12/24 0600 DC 12/24 SC 0803 Lisinopril 20 MG DAILY 12/20 0900 AC 12/25 PO 0858 Lorazepam 0 Q1P PRN 12/20 0830 AC 12/23 IV 2141 Magnesium Sulfate 1 GM ONCE ONE 12/25 1145 AC 12/25 Dextrose/Water 100 ML IV 12/25 1544 1233 Melatonin 5 MG .STK-MED ONE 12/25 0044 DC PO 12/25 0045 Melatonin 5 MG AT BEDTIME NEED.. 12/23 0245 AC 12/25 PO 0039 Metoprolol Tartrate 25 MG BID 12/21 0900 AC 12/25 PO 0858 Midazolam HCl 5 MG .STK-MED ONE 12/24 1618 DC IM 12/24 1619 Morphine Sulfate 2 MG Q4P PRN 12/19 1030 AC 12/24 IV 2315 Multivitamins 1 TAB DAILY 12/20 0900 AC 12/25 PO 0858 Nicotine 14 MG Q24 12/20 0900 AC 12/25 TOP 0858 Nystatin 1 JAY JAY BID 12/23 1147 AC 12/25 TOP 0903 Ondansetron HCl 8 MG .STK-MED ONE 12/24 1618 DC IM 12/24 1619 Ondansetron HCl 4 MG Q8P PRN 12/19 1030 DC IV Oxycodone HCl 20 MG 4 TIMES/DAY PRN 12/19 1030 AC 12/25 PO 1239 Potassium Chloride 10 MEQ DAILY 12/20 0900 AC 12/25 PO 0858 Prednisone 40 MG DAILY 12/23 0900 DC 12/25 PO 0858 Senna 187 MG AT BEDTIME 12/21 2100 AC 12/24 PO 2143 Thiamine HCl 100 MG DAILY 12/20 0900 AC 12/25 PO 0859 Tramadol HCl 50 MG ONCE ONE 12/25 0045 DC 12/25 PO 12/25 0046 0050 Results Last 48 Hrs of Labs/Mics: Laboratory Tests 12/25/17 0635: Anion Gap 10, Estimated GFR > 60, BUN/Creatinine Ratio 28.3 H, Magnesium 1.8, CBC w Diff NO MAN DIFF REQ, RBC 4.65 L, MCV 99.8 H, MCH 33.0 H, MCHC 33.1, RDW 13.9, MPV 8.9, Gran % 82.4 H, Lymphocytes % 7.0 L, Monocytes % 10.5 H, Eosinophils % 0, Basophils % 0.1, Absolute Granulocytes 10.6 H, Absolute Lymphocytes 0.9 L, Absolute Monocytes 1.4 H, Absolute Eosinophils 0, Absolute Basophils 0 12/24/17 0647: Anion Gap 7, Estimated GFR > 60, BUN/Creatinine Ratio 25.7 H, Magnesium 1.8, CBC w Diff NO MAN DIFF REQ, RBC 4.38 L, MCV 99.5 H, MCH 32.7 H, MCHC 32.8 L, RDW 14.0, MPV 8.3, Gran % 64.2, Lymphocytes % 24.3, Monocytes % 10.8 H, Eosinophils % 0.2, Basophils % 0.5, Absolute Granulocytes 4.9, Absolute Lymphocytes 1.9, Absolute Monocytes 0.8 H, Absolute Eosinophils 0, Absolute Basophils 0 12/23/174: APTT 107 *H Assessment/Plan Assessment/Plan Assessment: 1. Persistent atrial fibrillation 2. Diabetes mellitus 3. Hypertension 3. Status post umbilical hernia repair, postoperative day 1 Plan: * Restart Pradaxa * Continue other cardiac medication Continue telemetry? Yes
--- NOTE | 2017-12-25 18:05 | RADIOLOGY REPORT ---
EXAMINATION: XR CHEST CLINICAL INFORMATION: Pulmonary edema COMPARISON: 12/22/2017, previous TECHNIQUE: 2 views of the chest were obtained. FINDINGS: Study is technically challenging secondary to patient body habitus. There is persistent severe cardiomegaly. Mild prominence of the central pulmonary vascular structures and interstitial markings is stable. There are trace bilateral pleural effusions. No convincing consolidation. There is likely bibasilar atelectasis. Visualized osseous structures appear intact. IMPRESSION: Challenging limited study. Likely improvement overall in terms of fluid overload. Trace bilateral pleural effusions. No convincing pneumonia. Persistent severe cardiomegaly.
[2017-12-26 01:10] VITALS: BP 142/94
[2017-12-26 07:09] VITALS: BP 140/90
[2017-12-26 08:00] VITALS: BP 140/90
[2017-12-26 08:31] LABS: ABSOLUTE BASOPHIL COUNT 0 /CUMM (0.0-0.2); ABSOLUTE EOSINOPHIL COUNT 0 /CUMM (0.0-0.7); ABSOLUTE GRANULOCYTE CT 7.9 /CUMM (1.4-6.5); ABSOLUTE LYMPH COUNT 1.8 /CUMM (1.2-3.4); ABSOLUTE MONOCYTE COUNT 1.3 /CUMM (0.10-0.60); BASOPHIL % 0.4 % (0.0-2.0); EOSINOPHIL % 0.2 % (0-5); GRANULOCYTE % 71.8 % (42.2-75.2); HEMATOCRIT 47.1 % (42-52); MEAN CORPUSCULAR HGB 32.9 PG (27.0-31.0); MEAN CORPUSCULAR HGB CONC 33.1 G/DL (33.0-37.0); MEAN CORPUSCULAR VOLUME 99.4 FL (80.0-94.0); MEAN PLATELET VOLUME 8.7 FL (7.4-10.4); PLATELET COUNT 226 /CUMM (130-400); RBC DISTRIBUTION WIDTH 14.1 % (11.5-14.5); RED BLOOD CELL CT 4.74 /CUMM (4.70-6.10)
--- NOTE | 2017-12-26 09:14 | PN- Housestaff ---
Marion HARVEY,[facility] 12/26/17 0914: Subjective Follow-up For: -Bhumika -Umbilical Hernia -Alcohol Detox -Acute Hypoxic Respiratory Failure Tele-Events Since Last Visit: Bhumika with HR 80-124, no events Subjective: Afebrile, hemodynamically stable but mildly tachycardic. Patient saturating lower 90s on 44% high flow. The patient still complaining of mild abdominal pain over the site of hernia repair. He is also requesting his home dose of Xanax that he use when necessary at home for anxiety. He denies any other current active complaints. Review of Systems Constitutional: Reports: no symptoms, see HPI. Objective Last 24 Hrs of Vital Signs/I&O Vital Signs Date Time Temp Pulse Resp B/P B/P Pulse O2 O2 Flow FiO2 Mean Ox Delivery Rate 12/26 0853 124 140/90 12/26 0852 124 140/90 12/26 0852 124 140/90 12/26 0800 98.4 94 20 140/90 12/26 0800 93 Nasal 45% Cannula 12/26 0709 98.4 94 20 140/90 93 Non ReBreather 12/26 0110 142/94 12/26 0043 92 Nasal 45% Cannula 12/26 0000 Nasal 45% Cannula 12/25 2352 90 150/110 12/25 2226 94 Nasal 45% Cannula 12/25 2203 150/110 12/25 2200 98.3 98 20 150/110 94 Non ReBreather 12/25 2106 94 160/90 12/25 2000 93 Nasal 45% Cannula 12/25 1800 108 20 148/102 12/25 1628 95 Nasal 50% Cannula 12/25 1614 100 148/102 12/25 1613 100 148/102 12/25 1600 98.3 104 20 152/90 12/25 1426 98.3 103 20 152/90 91 Non ReBreather 12/25 1425 93 Nasal 50% Cannula 12/25 1400 108 16 140/88 12/25 1238 93 Nasal 50% Cannula 12/25 1200 96 16 140/88 12/25 1200 96 16 140/88 90 Nasal 50% Cannula Intake & Output 12/26 1600 12/26 0800 05 0000 Intake Total 120 472 Output Total 600 700 Balance -480 -228 Intake, IV 10 Intake, Oral 120 462 Output, Urine 600 700 Patient 152.067 kg Weight Weight Bed scale Measurement Method Physical Exam General Appearance: Alert, Oriented X3, Cooperative, No Acute Distress Skin: No Rashes HEENT: Atraumatic, PERRLA, EOMI, Mucous Membr. moist/pink Neck: No JVD Cardiovascular: Regular Rate, Normal S1, Normal S2, No Murmurs Lungs: Clear to Auscultation, Normal Air Movement Abdomen: Soft, tenderness over the surgical incision Neurological: Normal Speech Extremities: No Clubbing, No Cyanosis, No Edema Current Medications: Current Medications Sig/Pablo Start time Last Medication Dose Route Stop Time Status Admin Al Hydroxide/Mg 30 ML ONCE ONE 12/26 09 DC 12/26 Hydroxide PO 12/26 0901 0906 Albuterol Sulfate 2 PUF Q4P PRN 12/19 1030 AC INH Allopurinol 300 MG DAILY 12/20 09 AC 12/26 PO 1130 Alprazolam 0.5 MG TID PRN 12/26 1130 AC PO Amlodipine Besylate 10 MG DAILY 12/25 1533 AC 12/26 PO 0852 Atorvastatin Calcium 10 MG 1700 12/19 1700 AC 12/25 PO 1613 Bisacodyl 5 MG DAILY PRN 12/21 1615 AC 12/22 PO 0746 Budesonide/ 2 PUF BID 12/19 2100 AC 12/26 Formoterol Fumarate INH 1127 Cyanocobalamin 250 MCG DAILY 12/20 09 AC 12/26 PO 1130 Dabigatran 150 MG BID 12/25 0900 AC 12/26 PO 0852 Diltiazem HCl 240 MG DAILY 12/20 09 AC 12/26 PO 0852 Docusate Sodium 100 MG DAILY NEEDED PRN 12/21 1615 AC PO Docusate Sodium 100 MG DAILY 12/20 0900 AC 12/26 PO 1127 Fentanyl Citrate 100 MCG Q72 12/20 09 AC 12/26 TOP 0851 Folic Acid 1 MG DAILY 12/20 09 AC 12/26 PO 1127 Furosemide 40 MG DAILY 12/23 09 AC 12/26 PO 0852 Hydralazine HCl 10 MG ONCE ONE 12/25 2345 DC 12/25 PO 12/25 2346 2352 Hydromorphone HCl 1 MG Q6P PRN 12/25 1045 AC 12/26 IV 1140 Insulin Aspart 0 TIDAC 12/24 2145 AC SC Lisinopril 20 MG DAILY 12/20 0900 AC 12/26 PO 0853 Lorazepam 0 Q1P PRN 12/20 0830 AC 12/23 IV 2141 Magnesium Sulfate 1 GM ONCE ONE 12/25 1145 DC 12/25 Dextrose/Water 100 ML IV 12/25 1544 1233 Melatonin 5 MG .STK-MED ONE 12/25 2340 DC PO 12/25 2341 Melatonin 5 MG AT BEDTIME NEED.. 12/23 0245 AC 12/25 PO 2352 Metoprolol Tartrate 25 MG BID 12/21 0900 AC 12/26 PO 0852 Morphine Sulfate 2 MG Q4P PRN 12/19 1030 DC 12/25 IV 1803 Multivitamins 1 TAB DAILY 12/20 09 AC 12/26 PO 1127 Nicotine 14 MG Q24 12/20 0900 AC 12/26 TOP 0900 Nystatin 1 JAY JAY BID 12/23 1147 AC 12/25 TOP 2103 Oxycodone HCl 20 MG 4 TIMES/DAY PRN 12/26 1130 AC PO Oxycodone HCl 20 MG 4 TIMES/DAY PRN 12/19 1030 DC 12/26 PO 0735 Potassium Chloride 10 MEQ DAILY 12/20 0900 AC 12/26 PO 1127 Senna 187 MG AT BEDTIME 12/21 2100 AC 12/25 PO 2103 Thiamine HCl 100 MG DAILY 12/20 0900 AC 12/26 PO 1136 Last 24 Hrs of Lab/Timothy Results Last 24 Hrs of Labs/Mics: Laboratory Tests 12/26/17 0635: Anion Gap 8, Estimated GFR > 60, BUN/Creatinine Ratio 24.3, Magnesium 1.8, CBC w Diff NO MAN DIFF REQ, RBC 4.74, MCV 99.4 H, MCH 32.9 H, MCHC 33.1, RDW 14.1, MPV 8.7, Gran % 71.8, Lymphocytes % 16.0 L, Monocytes % 11.6 H, Eosinophils % 0.2, Basophils % 0.4, Absolute Granulocytes 7.9 H, Absolute Lymphocytes 1.8, Absolute Monocytes 1.3 H, Absolute Eosinophils 0, Absolute Basophils 0 12/25/17 1400: APTT Cancelled Assessment/Plan Assessment: 62 YO M with PMH significant for COPD, A.fib on pradaxa, JERRELL (not compliant with CPAP), Psoriatic arthritis, Venous insufficiency, regular alcohol consumption, HTN presented to [facility] after developing abdominal pain this evening. Assessment: 1. Acute Hypoxic Respiratory Failure on top of chronic Hypercapnic Respiratory Failure most likely secondary to hypoventilation because of JERRELL and recent surgery, however CHF and COPD may contribute. 2. Umbilical Hernia status post surgical repair 3. Alcohol Detox, currently stable and scarring 0 on CIWA 4. Atrial Fibrilliation with RVR fairly controlled 5.COPD 6.JERRELL Plan: * Currently on high flow, we will try to taper oxygen down. * Continue Incentive spirometry * TRC/Nebs as needed. * We will check ambulating oximetry * We will try to maintain negative fluid balance * Continue metoprolol 25mg BID. * Continue Diltiazem 240mg daily. * Continue PO Lasix 40mg daily. * Continue Pradaxa 150mg BID. * We will start Xanax for agitation(he is at 0.5 when necessary at home) * Nicotine patch 14mg daily. * Diet: Heart Healthy. * DVT Prophylaxis: Pradaxa * Code Status: Full Code Problem List: 1. Chronic atrial fibrillation 2. Incarcerated umbilical hernia Pain Ratin Pain Location: abdominal Pain Goal: Pain 4 or less Pain Plan: Oxycodone Tomorrow's Labs & Rationales: CBC to follow WBCs Vick Callejas MD 12/26/17 2012: Attending MD Review Statement Attending Statement Attending MD Statement: examined this patient, discuss w/resident/PA/CHALK EXTRUDING MACHINE OPERATOR, agreed w/resident/PA/CHALK EXTRUDING MACHINE OPERATOR, discussed with family, reviewed EMR data (avail), reviewed images, amended to note Attending Assessment/Plan: The patient was seen and discussed with the resident and Pulmonary (Dr. Martins). Still requiring high flow nasal oxygen. Will attempt to taper to standard nasal oxygen if possible. Continue current care.
--- NOTE | 2017-12-26 11:12 | PN- Pulmonary ---
Subjective HPI/Critical Care Issues: pt seen and examined remains on high flow oxygen, but fio2 reduced to 45% he takes the cannula off periodically dyspnea improved no cough no chest pain no fevers post operative pain controlled no n/v/d/c Objective Current Medications: Current Medications Sig/Pablo Start time Last Medication Dose Route Stop Time Status Admin Al Hydroxide/Mg 30 ML ONCE ONE 12/26 0900 DC 12/26 Hydroxide PO 12/26 0901 0906 Albuterol Sulfate 2 PUF Q4P PRN 12/19 1030 AC INH Allopurinol 300 MG DAILY 12/20 0900 AC 12/25 PO 0859 Amlodipine Besylate 10 MG DAILY 12/25 1533 AC 12/26 PO 0852 Atorvastatin Calcium 10 MG 1700 12/19 1700 AC 12/25 PO 1613 Bisacodyl 5 MG DAILY PRN 12/21 1615 AC 12/22 PO 0746 Budesonide/ 2 PUF BID 12/19 2100 AC 12/25 Formoterol Fumarate INH 2103 Cyanocobalamin 250 MCG DAILY 12/20 0900 AC 12/25 PO 0859 Dabigatran 150 MG BID 12/25 0900 AC 12/26 PO 0852 Diltiazem HCl 240 MG DAILY 12/20 0900 AC 12/26 PO 0852 Docusate Sodium 100 MG DAILY NEEDED PRN 12/21 1615 AC PO Docusate Sodium 100 MG DAILY 12/20 0900 AC 12/25 PO 0858 Fentanyl Citrate 100 MCG Q72 12/20 0900 AC 12/26 TOP 0851 Folic Acid 1 MG DAILY 12/20 0900 AC 12/25 PO 0858 Furosemide 40 MG DAILY 12/23 0900 AC 12/26 PO 0852 Hydralazine HCl 10 MG ONCE ONE 12/25 2345 DC 12/25 PO 12/25 2346 2352 Hydromorphone HCl 1 MG Q6P PRN 12/25 1045 AC 12/26 IV 0524 Insulin Aspart 0 TIDAC 12/24 2145 AC SC Lisinopril 20 MG DAILY 12/20 0900 AC 12/26 PO 0853 Lorazepam 0 Q1P PRN 12/20 0830 AC 12/23 IV 2141 Magnesium Sulfate 1 GM ONCE ONE 12/25 1145 DC 12/25 Dextrose/Water 100 ML IV 12/25 1544 1233 Melatonin 5 MG .STK-MED ONE 12/25 2340 DC PO 12/25 2341 Melatonin 5 MG AT BEDTIME NEED.. 12/23 0245 AC 12/25 PO 2352 Metoprolol Tartrate 25 MG BID 12/21 0900 AC 12/26 PO 0852 Morphine Sulfate 2 MG Q4P PRN 12/19 1030 DC 12/25 IV 1803 Multivitamins 1 TAB DAILY 12/20 0900 AC 12/25 PO 0858 Nicotine 14 MG Q24 12/20 0900 AC 12/26 TOP 0900 Nystatin 1 JAY JAY BID 12/23 1147 AC 12/25 TOP 210 Oxycodone HCl 20 MG 4 TIMES/DAY PRN 12/19 1030 DC 12/26 PO 0735 Potassium Chloride 10 MEQ DAILY 12/20 0900 AC 12/25 PO 0858 Prednisone 40 MG DAILY 12/23 0900 DC 12/25 PO 0858 Senna 187 MG AT BEDTIME 12/21 2100 AC 12/25 PO 2103 Thiamine HCl 100 MG DAILY 12/20 0900 AC 12/25 PO 0859 Vital Signs & I&O Last 24 Hrs of Vitals and I&O: Vital Signs Date Time Temp Pulse Resp B/P B/P Pulse O2 O2 Flow FiO2 Mean Ox Delivery Rate 12/26 0853 124 140/90 12/26 0852 124 140/90 12/26 0852 124 140/90 12/26 0800 98.4 94 20 140/90 12/26 0800 93 Nasal 45% Cannula 12/26 0709 98.4 94 20 140/90 93 Non ReBreather 12/26 0110 142/94 12/26 0043 92 Nasal 45% Cannula 12/26 0000 Nasal 45% Cannula 12/25 2352 90 150/110 12/25 2226 94 Nasal 45% Cannula 12/25 2203 150/110 12/25 2200 98.3 98 20 150/110 94 Non ReBreather 12/25 2106 94 160/90 12/25 2000 93 Nasal 45% Cannula 12/25 1800 108 20 148/102 12/25 1628 95 Nasal 50% Cannula 12/25 1614 100 148/102 12/25 1613 100 148/102 12/25 1600 98.3 104 20 152/90 12/25 1426 98.3 103 20 152/90 91 Non ReBreather 12/25 1425 93 Nasal 50% Cannula 12/25 1400 108 16 140/88 12/25 1238 93 Nasal 50% Cannula 12/25 1200 96 16 140/88 12/25 1200 96 16 140/88 90 Nasal 50% Cannula Intake & Output 12/26 1600 12/26 0800 12/26 0000 Intake Total 120 472 Output Total 600 700 Balance -480 -228 Intake, IV 10 Intake, Oral 120 462 Output, Urine 600 700 Patient 335 lb Weight Weight Bed scale Measurement Method Exam Other Physical Findings: gen-awake and alert head/neck - high flow nasal cannula cvs - s1, s2 lungs reduced at bases, some transmitted bronchial sounds ext without edema abd obese, dressing intact Results Last 24 Hrs of Lab Results: Laboratory Tests 12/26/17 0635: Anion Gap 8, Estimated GFR > 60, BUN/Creatinine Ratio 24.3, Magnesium 1.8, CBC w Diff NO MAN DIFF REQ, RBC 4.74, MCV 99.4 H, MCH 32.9 H, MCHC 33.1, RDW 14.1, MPV 8.7, Gran % 71.8, Lymphocytes % 16.0 L, Monocytes % 11.6 H, Eosinophils % 0.2, Basophils % 0.4, Absolute Granulocytes 7.9 H, Absolute Lymphocytes 1.8, Absolute Monocytes 1.3 H, Absolute Eosinophils 0, Absolute Basophils 0 12/25/17 1400: APTT Cancelled Impression/Plan Impression/Plan Impression/Plan: Impression 62-year-old man * improving acute hypoxemic respiratory failure on chronic respiratory failure. This is likely hypoventilation in the setting of obstructive sleep apnea that the patient has declined to use therapy for. He has a history of COPD as well that could be contributory and congestive heart disease. * Postop for inguinal hernia repair Plan -Reduce FiO2 as tolerated above 88% SPO2 -Ensure the patient has a net negative to even fluid balance -Incentive spirometry was encouraged and counseled -assess o2 needs prior to discharge -encouraged to reconsider JERRELL PAP therapy in the future DVT prophylaxis at all times
--- NOTE | 2017-12-26 11:14 | PN- General Surgery ---
See Addendum Subjective Subjective: PT IN BED WITH MOD ABD PAIN. PT ON HOME OXYCODONE, GOES TO PAIN CLINIC IN [place]. WILFRIDO DIET. AMBULATING. NO N/V. DENIES CP, FEVERS. VOIDING. PASSING GAS, NO BM Objective Vital Signs and I&Os Vital Signs Date Time Temp Pulse Resp B/P B/P Pulse O2 O2 Flow FiO2 Mean Ox Delivery Rate 12/26 0853 124 140/90 12/26 0852 124 140/90 12/26 0852 124 140/90 12/26 0800 98.4 94 20 140/90 12/26 0800 93 Nasal 45% Cannula 12/26 0709 98.4 94 20 140/90 93 Non ReBreather 12/26 0110 142/94 12/26 0043 92 Nasal 45% Cannula 12/26 0000 Nasal 45% Cannula 12/25 2352 90 150/110 12/25 2226 94 Nasal 45% Cannula 12/25 2203 150/110 12/25 2200 98.3 98 20 150/110 94 Non ReBreather 12/25 2106 94 160/90 12/25 2000 93 Nasal 45% Cannula 12/25 1800 108 20 148/102 12/25 1628 95 Nasal 50% Cannula 12/25 1614 100 148/102 12/25 1613 100 148/102 12/25 1600 98.3 104 20 152/90 12/25 1426 98.3 103 20 152/90 91 Non ReBreather 12/25 1425 93 Nasal 50% Cannula 12/25 1400 108 16 140/88 12/25 1238 93 Nasal 50% Cannula 12/25 1200 96 16 140/88 12/25 1200 96 16 140/88 90 Nasal 50% Cannula Intake & Output 12/26 1600 12/26 0800 12/26 0000 12/25 1600 12/25 0800 12/25 0000 Intake Total 120 472 649 120 120 Output Total 193 357 6263 450 Balance -480 -228 -378 -330 120 Intake, IV 10 247 Intake, Oral 120 462 402 120 120 Output, Urine 531 817 3623 450 Patient 335 lb 344 lb Weight Weight Bed scale Measurement Method Physical Exam: GEN- NAD RESP- CLEAR, NO 40% HIGH FLOW O2 CARDIAC- RRR ABD- OBESE, +BS, TENDER AROUND INCISION, DRESSING CAHNGED. SMALL AREA WITH ERYHTEMA AND QUESTION OF SMALL AMOUNT OF DRAINAGE. Current Medications: Current Medications Sig/Pablo Start time Last Medication Dose Route Stop Time Status Admin Al Hydroxide/Mg 30 ML ONCE ONE 12/26 09 DC 12/26 Hydroxide PO 12/26 0901 0906 Albuterol Sulfate 2 PUF Q4P PRN 12/19 1030 AC INH Allopurinol 300 MG DAILY 12/20 0900 AC 12/25 PO 0859 Amlodipine Besylate 10 MG DAILY 12/25 1533 AC 12/26 PO 0852 Atorvastatin Calcium 10 MG 1700 12/19 1700 AC 12/25 PO 1613 Bisacodyl 5 MG DAILY PRN 12/21 1615 AC 12/22 PO 0746 Budesonide/ 2 PUF BID 12/19 2100 AC 12/25 Formoterol Fumarate INH 2103 Cyanocobalamin 250 MCG DAILY 12/20 09 AC 12/25 PO 0859 Dabigatran 150 MG BID 12/25 0900 AC 12/26 PO 0852 Diltiazem HCl 240 MG DAILY 12/20 0900 AC 12/26 PO 0852 Docusate Sodium 100 MG DAILY NEEDED PRN 12/21 1615 AC PO Docusate Sodium 100 MG DAILY 12/20 0900 AC 12/25 PO 0858 Fentanyl Citrate 100 MCG Q72 12/20 0900 AC 12/26 TOP 0851 Folic Acid 1 MG DAILY 12/20 0900 AC 12/25 PO 0858 Furosemide 40 MG DAILY 12/23 0900 AC 12/26 PO 0852 Hydralazine HCl 10 MG ONCE ONE 12/25 2345 DC 12/25 PO 12/25 2346 2352 Hydromorphone HCl 1 MG Q6P PRN 12/25 1045 AC 12/26 IV 0524 Insulin Aspart 0 TIDAC 12/24 2145 AC SC Lisinopril 20 MG DAILY 12/20 0900 AC 12/26 PO 0853 Lorazepam 0 Q1P PRN 12/20 0830 AC 12/23 IV 2141 Magnesium Sulfate 1 GM ONCE ONE 12/25 1145 DC 12/25 Dextrose/Water 100 ML IV 12/25 1544 1233 Melatonin 5 MG .STK-MED ONE 12/25 2340 DC PO 12/25 2341 Melatonin 5 MG AT BEDTIME NEED.. 12/23 0245 AC 12/25 PO 2352 Metoprolol Tartrate 25 MG BID 12/21 0900 AC 05/20 PO 0852 Morphine Sulfate 2 MG Q4P PRN 12/19 1030 DC 12/25 IV 1803 Multivitamins 1 TAB DAILY 12/20 0900 AC 12/25 PO 0858 Nicotine 14 MG Q24 12/20 09 AC 12/26 TOP 09 Nystatin 1 JAY JAY BID 12/23 1147 AC 12/25 TOP 2102 Oxycodone HCl 20 MG 4 TIMES/DAY PRN 12/19 1030 DC 12/26 PO 0735 Potassium Chloride 10 MEQ DAILY 12/20 09 AC 12/25 PO 0858 Prednisone 40 MG DAILY 12/23 0900 DC 12/25 PO 0858 Senna 187 MG AT BEDTIME 12/21 2100 AC 12/25 PO 210 Thiamine HCl 100 MG DAILY 12/20 0900 AC 12/25 PO 0859 Results Last 48 Hours of Labs: Laboratory Tests 12/26 12/25 0635 1400 Chemistry Sodium (137 - 145 mmol/L) 137 Potassium (3.5 - 5.1 mmol/L) 3.9 Chloride (98 - 107 mmol/L) 97 L Carbon Dioxide (22 - 30 mmol/L) 31 H Anion Gap (5 - 16) 8 BUN (9 - 20 mg/dL) 17 Creatinine (0.7 - 1.2 mg/dL) 0.7 Estimated GFR (>60 ml/min) > 60 BUN/Creatinine Ratio (7 - 25 %) 24.3 Magnesium (1.6 - 2.3 mg/dL) 1.8 Coagulation APTT Cancelled Hematology CBC w Diff NO MAN DIFF REQ WBC (4.8 - 10.8 /CUMM) 11.0 H RBC (4.70 - 6.10 /CUMM) 4.74 Hgb (14.0 - 18.0 G/DL) 15.6 Hct (42 - 52 %) 47.1 MCV (80.0 - 94.0 FL) 99.4 H MCH (27.0 - 31.0 PG) 32.9 H MCHC (33.0 - 37.0 G/DL) 33.1 RDW (11.5 - 14.5 %) 14.1 Plt Count (130 - 400 /CUMM) 226 MPV (7.4 - 10.4 FL) 8.7 Gran % (42.2 - 75.2 %) 71.8 Lymphocytes % (20.5 - 51.1 %) 16.0 L Monocytes % (1.7 - 9.3 %) 11.6 H Eosinophils % (0 - 5 %) 0.2 Basophils % (0.0 - 2.0 %) 0.4 Absolute Granulocytes (1.4 - 6.5 /CUMM) 7.9 H Absolute Lymphocytes (1.2 - 3.4 /CUMM) 1.8 Absolute Monocytes (0.10 - 0.60 /CUMM) 1.3 H Absolute Eosinophils (0.0 - 0.7 /CUMM) 0 Absolute Basophils (0.0 - 0.2 /CUMM) 0 12/25 0635 Chemistry Sodium (137 - 145 mmol/L) 140 Potassium (3.5 - 5.1 mmol/L) 4.5 Chloride (98 - 107 mmol/L) 99 Carbon Dioxide (22 - 30 mmol/L) 31 H Anion Gap (5 - 16) 10 BUN (9 - 20 mg/dL) 17 Creatinine (0.7 - 1.2 mg/dL) 0.6 L Estimated GFR (>60 ml/min) > 60 BUN/Creatinine Ratio (7 - 25 %) 28.3 H Magnesium (1.6 - 2.3 mg/dL) 1.8 Hematology CBC w Diff NO MAN DIFF REQ WBC (4.8 - 10.8 /CUMM) 12.9 H RBC (4.70 - 6.10 /CUMM) 4.65 L Hgb (14.0 - 18.0 G/DL) 15.4 Hct (42 - 52 %) 46.4 MCV (80.0 - 94.0 FL) 99.8 H MCH (27.0 - 31.0 PG) 33.0 H MCHC (33.0 - 37.0 G/DL) 33.1 RDW (11.5 - 14.5 %) 13.9 Plt Count (130 - 400 /CUMM) 239 MPV (7.4 - 10.4 FL) 8.9 Gran % (42.2 - 75.2 %) 82.4 H Lymphocytes % (20.5 - 51.1 %) 7.0 L Monocytes % (1.7 - 9.3 %) 10.5 H Eosinophils % (0 - 5 %) 0 Basophils % (0.0 - 2.0 %) 0.1 Absolute Granulocytes (1.4 - 6.5 /CUMM) 10.6 H Absolute Lymphocytes (1.2 - 3.4 /CUMM) 0.9 L Absolute Monocytes (0.10 - 0.60 /CUMM) 1.4 H Absolute Eosinophils (0.0 - 0.7 /CUMM) 0 Absolute Basophils (0.0 - 0.2 /CUMM) 0 Assessment/Plan Assessment/Plan 62YO M WITH MULTIPLE MEDICAL PROBLEMS INCLUDING DIABETES, COPD, AFIB, HTN AND CHRONIC PAIN NOW SP OPEN UMBILICAL HERNIA REPAIR POD2. STABLE FROM A SURGICAL STANDPOINT. WILL RE-CHECK WOUND TOMORROW AT DRESSING CHANGE REC PAIN MANAGEMENT WITH [facility] AND IS MEDICAL MANAGEMENT REC FOLLOW-UP OUTPATIENT WITH DR LEAVITT IN 10 DAYS. STOOL SOFTENERS DVT PPX- XARELTO DISCUSSED WITH DR OLIVEROS AND HE AGREES WITH ABOVE Core Measures Venous Thromboembolism VTE Risk Factors Surgery No Mechanical VTE Prophylaxis d/t N/A MechProphylax Ordered No VTE Pharm Prophylaxis d/t Surgical Contraindication
[2017-12-26 14:08] VITALS: BP 108/80
[2017-12-26 16:00] VITALS: BP 108/80
[2017-12-26 21:57] VITALS: BP 110/70
[2017-12-27 06:52] VITALS: BP 110/68
--- NOTE | 2017-12-27 07:08 | PN- Housestaff ---
Pallavi HARVEY,[facility] 12/27/17 0708: Subjective Follow-up For: Bhumika Umbilical hernia alcohol detox acute hypoxic respiratory failure Tele-Events Since Last Visit: Bhumika with HR 96-112. Subjective: patient was seen and examined at bedside. Reports feeling well but tired. Does not offer any complaints. Review of Systems Constitutional: Reports: no symptoms. Objective Last 24 Hrs of Vital Signs/I&O Vital Signs Date Time Temp Pulse Resp B/P B/P Pulse O2 O2 Flow FiO2 Mean Ox Delivery Rate 12/27 0652 98.1 106 20 110/68 94 Nasal Cannula 12/27 0200 102 12/27 0000 90 12/26 2200 88 12/26 2157 98.8 101 20 110/70 96 Nasal Cannula 12/26 2120 93 Nasal 5.0L Cannula 12/26 2035 Nasal 5.0L Cannula 12/26 2008 92 148/76 12/26 2000 98 12/26 1800 92 12/26 1644 93 Nasal 5.0L Cannula 12/26 1600 98.1 98 20 108/80 12/26 1600 90 Nasal 5.0L Cannula 12/26 1408 98.1 98 20 108/80 93 Nasal Cannula 12/26 1400 98 12/26 1200 80 12/26 1000 110 12/26 0853 124 140/90 12/26 0852 124 140/90 12/26 0852 124 140/90 Intake & Output 12/27 1600 12/27 0800 12/27 0000 Intake Total 400 420 Output Total 675 225 Balance -275 195 Intake, Oral 400 420 Output, Urine 675 225 Patient 335 lb Weight Physical Exam General Appearance: Alert, Oriented X3, Cooperative, Mild Distress Skin: No Rashes, No Breakdown Skin Temp/Moisture Exam: Warm/Dry Sepsis Skin Exam (color): Normal for Ethnicity HEENT: Atraumatic Cardiovascular: Normal S1, Normal S2, No Murmurs Lungs: Normal Air Movement, bibasilar crackles Abdomen: Soft, No Tenderness Neurological: Normal Speech Extremities: trace edema of lower extremities Last 24 Hrs of Lab/Timothy Results Last 24 Hrs of Labs/Mics: Laboratory Tests 12/27/17 0626: CBC w Diff NO MAN DIFF REQ, RBC 4.87, MCV 98.8 H, MCH 33.0 H, MCHC 33.3, RDW 14.1, MPV 9.2, Gran % 75.8 H, Lymphocytes % 12.3 L, Monocytes % 10.9 H, Eosinophils % 0.7, Basophils % 0.3, Absolute Granulocytes 9.3 H, Absolute Lymphocytes 1.5, Absolute Monocytes 1.3 H, Absolute Eosinophils 0.1, Absolute Basophils 0 Assessment/Plan Assessment: 62 YO M with PMH significant for COPD, A.fib on pradaxa, JERRELL (not compliant with CPAP), Psoriatic arthritis, Venous insufficiency, regular alcohol consumption, HTN presented to [place] after developing abdominal pain this evening. Assessment: 1. Acute Hypoxic Respiratory Failure with Chronic Hypercapnic Respiratory Failure 2. Umbilical Hernia s/p repair 3. Alcohol Detox - resolved 4. Atrial Fibrilliation with RVR - now with improved rate control 5. History of COPD 6. History of JERRELL Plan: * Continue oxygen supplementation to maintain target sats > 92%. Currently on 4L. He would likey require home oxygen on discharge. * Pain control with IV Dilaudidd 0.4mg q6p for severe pain and oxycodone 20mg q6p for moderate. * Continue TRC/Nebs as needed. * Pulm recs appreciated * Continue metoprolol 25mg BID and increase diltiazem to 360mg (home dose) daily. * Continue PO Lasix 40mg daily. * Continue Pradaxa 150mg BID. * Repeat CXR today. * Echocardiogram - Normal left and right ventricular systolic function. Moderate mitral regurgitation. * Continue thiamine, folic acid, multivitamins * Monitor electrolytes and replete as needed. * Nicotine patch 14mg daily. * Diet: Heart Healthy. * DVT Prophylaxis: Pradaxa * Code Status: Full Code Problem List: 1. Atrial fibrillation Pain Ratin Pain Location: none Pain Goal: Remain pain free Pain Plan: none Tomorrow's Labs & Rationales: CBC, BEP YoandyRachelle hinkle 12/27/17 1335: Attending MD Review Statement Attending Statement Attending MD Statement: examined this patient, discuss w/resident/PA/SNOWSPORT INSTRUCTOR, agreed w/resident/PA/SNOWSPORT INSTRUCTOR, discussed with family, reviewed EMR data (avail), discussed with nursing, discussed with case mgmt, reviewed images, amended to note Attending Assessment/Plan: The patient was seen and discussed with house staff. Patient oxygen requirement imrpoving using nasal oxygen. Encourage incentive spirometry. Passing flatus and on bowel regimen for opiates needing for chronic pain. Afib rate controlled: dc/ amlodipine and resume cardizem 360, c/w pradaxa CHF with improvement on oral lasix atelectasis in ciarra-operative period c/w IS alcohol abuse in past. recentyl detoxed ciarra-umbilicla hernia with repair, no acute issues. follow surgery for dc planning. chronic back pain on opitaes, monitor bowel movement DM RISS and titrate insulin as needed hypertension controlled c/w regimen JERRELL on cpap at night, non compliant. gi/dvt prophyalxis full code. plan of care d.wed patient bedside
[2017-12-27 08:00] LABS: ABSOLUTE BASOPHIL COUNT 0 /CUMM (0.0-0.2); ABSOLUTE EOSINOPHIL COUNT 0.1 /CUMM (0.0-0.7); ABSOLUTE GRANULOCYTE CT 9.3 /CUMM (1.4-6.5); ABSOLUTE LYMPH COUNT 1.5 /CUMM (1.2-3.4); ABSOLUTE MONOCYTE COUNT 1.3 /CUMM (0.10-0.60); BASOPHIL % 0.3 % (0.0-2.0); EOSINOPHIL % 0.7 % (0-5); GRANULOCYTE % 75.8 % (42.2-75.2); HEMATOCRIT 48.1 % (42-52); MEAN CORPUSCULAR HGB CONC 33.3 G/DL (33.0-37.0); MEAN CORPUSCULAR VOLUME 98.8 FL (80.0-94.0); MEAN PLATELET VOLUME 9.2 FL (7.4-10.4); PLATELET COUNT 231 /CUMM (130-400); RBC DISTRIBUTION WIDTH 14.1 % (11.5-14.5); RED BLOOD CELL CT 4.87 /CUMM (4.70-6.10); WHITE BLOOD CELL COUNT 12.3 /CUMM (4.8-10.8)
--- NOTE | 2017-12-27 08:47 | PN- Pulmonary ---
Subjective HPI/Critical Care Issues: Patient is awake alert denies shortness of breath. Oxygen requirements have decreased Objective Current Medications: Current Medications Sig/Pablo Start time Last Medication Dose Route Stop Time Status Admin Al Hydroxide/Mg 30 ML .STK-MED ONE 12/26 09 DC Hydroxide PO 12/26 0904 Al Hydroxide/Mg 30 ML ONCE ONE 12/26 09 DC 12/26 Hydroxide PO 12/26 0901 0906 Albuterol Sulfate 2 PUF Q4P PRN 12/19 1030 AC INH Allopurinol 300 MG DAILY 12/20 0900 AC 12/27 PO 0844 Alprazolam 0.5 MG TID PRN 12/26 1130 AC 12/26 PO 2347 Amlodipine Besylate 10 MG DAILY 12/25 1533 AC 12/27 PO 0844 Atorvastatin Calcium 10 MG 1700 12/19 1700 AC 12/26 PO 1738 Bisacodyl 5 MG DAILY PRN 12/21 1615 AC 12/22 PO 0746 Budesonide/ 2 PUF BID 12/19 2100 AC 12/26 Formoterol Fumarate INH 2008 Cyanocobalamin 250 MCG DAILY 12/20 0900 AC 12/27 PO 0844 Dabigatran 150 MG BID 12/25 0900 AC 12/27 PO 0844 Diltiazem HCl 240 MG DAILY 12/20 09 AC 12/27 PO 0844 Docusate Sodium 100 MG DAILY NEEDED PRN 12/21 1615 AC PO Docusate Sodium 100 MG DAILY 12/20 0900 AC 12/26 PO 1127 Fentanyl Citrate 100 MCG Q72 12/20 0900 AC 12/26 TOP 0851 Folic Acid 1 MG DAILY 12/20 0900 AC 12/27 PO 0844 Furosemide 40 MG DAILY 12/23 0900 AC 12/27 PO 0844 Hydromorphone HCl 0.4 MG Q6P PRN 12/27 0900 UNVr IV Hydromorphone HCl 1 MG Q6P PRN 12/25 1045 DC 12/27 IV 0649 Insulin Aspart 0 TIDAC 12/24 2145 AC SC Lisinopril 20 MG DAILY 12/20 0900 AC 12/27 PO 0844 Lorazepam 0 Q1P PRN 12/20 0830 DC 12/23 IV 2141 Melatonin 5 MG AT BEDTIME NEED.. 12/23 0245 AC 12/25 PO 2352 Metoprolol Tartrate 25 MG BID 12/21 0900 AC 12/27 PO 0844 Morphine Sulfate 2 MG Q4P PRN 12/19 1030 DC 12/25 IV 1803 Multivitamins 1 TAB DAILY 12/20 09 12/27 PO 0844 Nicotine 14 MG Q24 12/20 0900 AC 12/26 TOP 0900 Nystatin 1 JAY JAY BID 12/23 1147 AC 12/25 TOP 2103 Oxycodone HCl 20 MG 4 TIMES/DAY PRN 12/26 1130 AC 12/27 PO 0845 Oxycodone HCl 20 MG 4 TIMES/DAY PRN 12/19 1030 DC 12/26 PO 0735 Potassium Chloride 10 MEQ DAILY 12/20 09 12/27 PO 0844 Senna 187 MG AT BEDTIME 12/21 2100 AC 12/26 PO 2008 Thiamine HCl 100 MG DAILY 12/20 09 AC 12/27 PO 0844 Vital Signs & I&O Last 24 Hrs of Vitals and I&O: Vital Signs Date Time Temp Pulse Resp B/P B/P Pulse O2 O2 Flow FiO2 Mean Ox Delivery Rate 12/27 0652 98.1 106 20 110/68 94 Nasal Cannula 12/27 0200 102 12/27 0000 90 12/26 2200 88 12/26 2157 98.8 101 20 110/70 96 Nasal Cannula 12/26 2120 93 Nasal 5.0L Cannula 12/26 2035 Nasal 5.0L Cannula 12/26 2008 92 148/76 12/26 2000 98 12/26 1800 92 12/26 1644 93 Nasal 5.0L Cannula 12/26 1600 98.1 98 20 108/80 12/26 1600 90 Nasal 5.0L Cannula 12/26 1408 98.1 98 20 108/80 93 Nasal Cannula 12/26 1400 98 12/26 1200 80 12/26 1000 110 12/26 0853 124 140/90 12/26 0852 124 140/90 12/26 0852 124 140/90 Intake & Output 12/27 1600 12/27 0800 12/27 0000 Intake Total 400 420 Output Total 675 225 Balance -275 195 Intake, Oral 400 420 Output, Urine 675 225 Patient 335 lb Weight Since saturation 5 L 94% exam of his chest shows diminished breath sounds are no wheezes or crackles cardiac exam shows regular S1 and S2 without murmurs Impression/Plan Impression/Plan Impression/Plan: 62-year-old gentleman with chronic hypercapnic respiratory failure improving acute hypoxic respiratory failure Recommendations: Taper FiO2 with improved saturations. Patient again encouraged to consider outpatient sleep study and nasal BiPAP continue negative fluid balance
--- NOTE | 2017-12-27 11:29 | PN- Cardiology ---
Subjective Subjective: Patient is resting comfortably today with no new complaints. Objective Vital Signs and I&Os Vital Signs Date Time Temp Pulse Resp B/P B/P Pulse O2 O2 Flow FiO2 Mean Ox Delivery Rate 12/27 0652 98.1 106 20 110/68 94 Nasal Cannula 12/27 0200 102 12/27 0000 90 12/26 2200 88 12/26 2157 98.8 101 20 110/70 96 Nasal Cannula 12/26 2120 93 Nasal 5.0L Cannula 12/26 2035 Nasal 5.0L Cannula 12/26 2008 92 148/76 12/26 2000 98 12/26 1800 92 12/26 1644 93 Nasal 5.0L Cannula 12/26 1600 98.1 98 20 108/80 12/26 1600 90 Nasal 5.0L Cannula 12/26 1408 98.1 98 20 108/80 93 Nasal Cannula 12/26 1400 98 12/26 1200 80 Intake & Output 12/27 1600 12/27 0800 12/27 0000 12/26 1600 12/26 0800 12/26 0000 Intake Total 400 420 680 120 472 Output Total 675 225 800 600 700 Balance -275 195 -120 -480 -228 Intake, IV 10 Intake, Oral 400 420 680 120 462 Number 0 Bowel Movements Output, Urine 675 225 800 600 700 Patient 335 lb 335 lb Weight Weight Bed scale Measurement Method Physical Exam: General: no apparent distress. Alert. Overweight Eyes: No obvious scleral icterus. HEENT: No jugular venous distention or abnormal jugular venous pulsations. Cardiovascular: Normal intensity S1/S2. Irregular Respiratory: Lungs clear to auscultation bilaterally. Abdomen: Soft, abdominal bandage Musculoskeletal: No clubbing or cyanosis noted, no edema Skin: warm Neurologic: No gross focal deficits noted. Current Medications: Current Medications Sig/Pablo Start time Last Medication Dose Route Stop Time Status Admin Albuterol Sulfate 2 PUF Q4P PRN 12/19 1030 AC INH Allopurinol 300 MG DAILY 12/20 0900 AC 12/27 PO 0844 Alprazolam 0.5 MG TID PRN 12/26 1130 AC 12/26 PO 2347 Amlodipine Besylate 10 MG DAILY 12/25 1533 AC 12/27 PO 0844 Atorvastatin Calcium 10 MG 1700 12/19 1700 AC 12/26 PO 1738 Bisacodyl 5 MG DAILY PRN 12/21 1615 AC 12/22 PO 0746 Budesonide/ 2 PUF BID 12/19 2100 AC 12/27 Formoterol Fumarate INH 0846 Cyanocobalamin 250 MCG DAILY 12/20 09 AC 12/27 PO 0844 Dabigatran 150 MG BID 12/25 09 AC 12/27 PO 0844 Diltiazem HCl 240 MG DAILY 12/20 0900 AC 12/27 PO 0844 Docusate Sodium 100 MG DAILY NEEDED PRN 12/21 1615 AC PO Docusate Sodium 100 MG DAILY 12/20 09 AC 12/27 PO 0846 Fentanyl Citrate 100 MCG Q72 12/20 0900 UT 12/26 TOP 0851 Folic Acid 1 MG DAILY 12/20 09 AC 12/27 PO 0844 Furosemide 40 MG DAILY 12/23 09 12/27 PO 0844 Hydromorphone HCl 0.4 MG Q6P PRN 12/27 09 AC IV Hydromorphone HCl 1 MG Q6P PRN 12/25 1045 DC 12/27 IV 0649 Insulin Aspart 0 TIDAC 12/24 2145 AC SC Lisinopril 20 MG DAILY 12/20 09 12/27 PO 0844 Lorazepam 0 Q1P PRN 12/20 0830 DC 12/23 IV 2141 Melatonin 5 MG AT BEDTIME NEED.. 12/23 0245 12/25 PO 2352 Metoprolol Tartrate 25 MG BID 12/21 09 12/27 PO 0844 Multivitamins 1 TAB DAILY 12/20 09 12/27 PO 0844 Nicotine 14 MG Q24 12/20 09 12/27 TOP 0846 Nystatin 1 JAY JAY BID 12/23 1147 12/25 TOP 2103 Oxycodone HCl 20 MG 4 TIMES/DAY PRN 12/26 1130 12/27 PO 0845 Potassium Chloride 10 MEQ DAILY 12/20 09 12/27 PO 0844 Senna 187 MG AT BEDTIME 12/21 2100 AC 12/26 PO 2007 Thiamine HCl 100 MG DAILY 12/20 09 12/27 PO 0844 Results Last 48 Hrs of Labs/Mics: Laboratory Tests 12/27/17 0626: CBC w Diff NO MAN DIFF REQ, RBC 4.87, MCV 98.8 H, MCH 33.0 H, MCHC 33.3, RDW 14.1, MPV 9.2, Gran % 75.8 H, Lymphocytes % 12.3 L, Monocytes % 10.9 H, Eosinophils % 0.7, Basophils % 0.3, Absolute Granulocytes 9.3 H, Absolute Lymphocytes 1.5, Absolute Monocytes 1.3 H, Absolute Eosinophils 0.1, Absolute Basophils 0 12/26/17 0635: Anion Gap 8, Estimated GFR > 60, BUN/Creatinine Ratio 24.3, Magnesium 1.8, Pro-B -Natriuretic Pept 3370 H, CBC w Diff NO MAN DIFF REQ, RBC 4.74, MCV 99.4 H, MCH 32.9 H, MCHC 33.1, RDW 14.1, MPV 8.7, Gran % 71.8, Lymphocytes % 16.0 L, Monocytes % 11.6 H, Eosinophils % 0.2, Basophils % 0.4, Absolute Granulocytes 7.9 H, Absolute Lymphocytes 1.8, Absolute Monocytes 1.3 H, Absolute Eosinophils 0, Absolute Basophils 0 12/25/17 1400: APTT Cancelled Recent Imaging Studies: Telemetry tracings were personally reviewed and show atrial fibrillation with borderline ventricular response rate Assessment/Plan Assessment/Plan #1. Persistent atrial fibrillation on Pradaxa currently on hold with rapid ventricular response most likely secondary to alcohol withdrawal #2. Diabetes #3. Hypertension #4. Obstructive sleep apnea/COPD #5. Periumbilical hernia requiring surgical intervention #6. Alcohol abuse with DTs The patient is doing well. It appears he was started on amlodipine for high blood pressure but given the fact that he was already on a CCB I recommend discontinuing the amlodipine and increasing the Cardizem to 360 mg p.o. daily as his heart rate is slightly elevated. He is maintaining negative fluid balance with oral Lasix. His Pradaxa has been resumed. Orlando Walker MD [facility] Continue telemetry? Yes
--- NOTE | 2017-12-27 12:45 | RADIOLOGY REPORT ---
EXAMINATION: XR CHEST CLINICAL INFORMATION: Pulmonary edema. Comparison to previous. COMPARISON: Chest x-ray dated 12/25/2017 and older studies dating back to 05/11/2011. TECHNIQUE: 2 views of the chest were obtained. FINDINGS: The cardiomediastinal silhouette is enlarged, unchanged from 12/25/2017 but significantly increased in size even allowing for differences in technique compared to 05/10/2011, suggesting a dilated cardiomyopathy. Lungs bilaterally are symmetrically expanded and demonstrate minimal bibasilar linear atelectatic changes minimal central vascular congestion. No overt pulmonary edema, focal consolidation, effusion or pneumothorax is seen. Mild vertebral spondylosis seen in the mid and lower thoracic spine. Bony structures are otherwise unremarkable. IMPRESSION: 1. Cardiomegaly. 2. Minimal central vascular congestion. No pulmonary edema. 3. Minimal atelectatic changes in the lung bases bilaterally.
[2017-12-27 13:35] VITALS: BP 130/70
--- NOTE | 2017-12-27 16:53 | PN- General Surgery ---
Subjective Subjective: POD 3 open umbilical / mesh no nausea, pain minimal now Objective Vital Signs and I&Os reviewed Vital Signs Date Time Temp Pulse Resp B/P B/P Pulse O2 O2 Flow FiO2 Mean Ox Delivery Rate 12/27 1335 98.3 93 20 130/70 94 Nasal Cannula 12/27 0900 93 Nasal 5.0L Cannula 12/27 0800 95 Nasal 5.0L Cannula 12/27 0652 98.1 106 20 110/68 94 Nasal Cannula 12/27 0200 102 12/27 0000 90 12/26 2200 88 12/26 2157 98.8 101 20 110/70 96 Nasal Cannula 12/26 2120 93 Nasal 5.0L Cannula 12/26 2034 Nasal 5.0L Cannula 12/27 2007 92 148/76 12/26 2000 98 12/26 1800 92 reviewed Intake & Output 12/27 1600 12/27 0800 12/27 0000 12/26 1600 12/26 0800 12/26 0000 Intake Total 660 400 420 680 120 472 Output Total 780 675 225 800 600 700 Balance -120 -275 195 -120 -480 -228 Intake, IV 20 10 Intake, Oral 640 400 420 680 120 462 Number 0 Bowel Movements Output, Urine 780 675 225 800 600 700 Patient 335 lb 335 lb Weight Weight Bed scale Measurement Method Physical Exam: Constitutional: no acute distress no pain Eyes: sclera anicteric ENMT: moist mucous membranes Cardiovascular: S1-S2 no murmurs no peripheral edema Respiratory: clear to auscultation with normal respiratory effort and no intercostal retractions GI: abdomen soft nontender nondistended Hernia site dressing dry soft no obvious hematoma Extremities / lymphatics: free range of motion no peripheral edema Skin: no jaundice no rashes warm, nondiaphoretic Psychiatric: mood and affect are appropriate and alert and oriented to person place and time Current Medications: I reviewed Current Medications Sig/Pablo Start time Last Medication Dose Route Stop Time Status Admin Albuterol Sulfate 2 PUF Q4P PRN 12/19 1030 AC INH Allopurinol 300 MG DAILY 12/20 0900 AC 12/27 PO 0844 Alprazolam 0.5 MG TID PRN 12/26 1130 AC 12/26 PO 2347 Amlodipine Besylate 10 MG DAILY 12/25 1533 DC 12/27 PO 0844 Atorvastatin Calcium 10 MG 1700 12/19 1700 AC 12/26 PO 1738 Bisacodyl 5 MG DAILY PRN 12/21 1615 AC 12/27 PO 1231 Budesonide/ 2 PUF BID 12/19 2100 AC 12/27 Formoterol Fumarate INH 0846 Cyanocobalamin 250 MCG DAILY 12/20 0900 AC 12/27 PO 0844 Dabigatran 150 MG BID 12/25 0900 AC 12/27 PO 0844 Diltiazem HCl 360 MG DAILY 12/28 09 AC PO Diltiazem HCl 240 MG DAILY 12/20 0900 DC 12/27 PO 0844 Docusate Sodium 100 MG DAILY NEEDED PRN 12/21 1615 AC PO Docusate Sodium 100 MG DAILY 12/20 0900 AC 12/27 PO 0846 Fentanyl Citrate 100 MCG Q72 12/20 09 DC 12/26 TOP 0851 Folic Acid 1 MG DAILY 12/20 09 AC 12/27 PO 0844 Furosemide 40 MG DAILY 12/23 0900 AC 12/27 PO 0844 Hydromorphone HCl 0.4 MG Q6P PRN 12/27 0900 AC 12/27 IV 1230 Hydromorphone HCl 1 MG Q6P PRN 12/25 1045 DC 12/27 IV 0649 Insulin Aspart 0 TIDAC 12/24 2145 AC SC Lisinopril 20 MG DAILY 12/20 09 AC 12/27 PO 0844 Lorazepam 0 Q1P PRN 12/20 0830 DC 12/23 IV 2141 Melatonin 5 MG AT BEDTIME NEED.. 12/23 0245 AC 12/25 PO 2352 Metoprolol Tartrate 25 MG BID 12/21 09 AC 12/27 PO 0844 Multivitamins 1 TAB DAILY 12/20 09 12/27 PO 0844 Nicotine 14 MG Q24 12/20 0900 AC 12/27 TOP 0846 Nystatin 1 JAY JAY BID 12/23 1147 DC 12/25 TOP 2103 Oxycodone HCl 10 MG 4 TIMES/DAY PRN 12/27 1538 AC PO Oxycodone HCl 20 MG 4 TIMES/DAY PRN 12/26 1130 DC 12/27 PO 1449 Potassium Chloride 10 MEQ DAILY 12/20 09 AC 12/27 PO 0844 Senna 187 MG AT BEDTIME 12/21 2100 AC 12/26 PO 2007 Thiamine HCl 100 MG DAILY 12/20 0900 AC 12/27 PO 0844 Results Last 48 Hours of Labs: I reviewed Laboratory Tests 12/27 12/26 0651 0693 Chemistry Sodium (137 - 145 mmol/L) 137 Potassium (3.5 - 5.1 mmol/L) 3.9 Chloride (98 - 107 mmol/L) 97 L Carbon Dioxide (22 - 30 mmol/L) 31 H Anion Gap (5 - 16) 8 BUN (9 - 20 mg/dL) 17 Creatinine (0.7 - 1.2 mg/dL) 0.7 Estimated GFR (>60 ml/min) > 60 BUN/Creatinine Ratio (7 - 25 %) 24.3 Magnesium (1.6 - 2.3 mg/dL) 1.8 [id number] Pept (<125 pg/mL) 3370 H Hematology CBC w Diff NO MAN DIFF REQ NO MAN DIFF REQ WBC (4.8 - 10.8 /CUMM) 12.3 H 11.0 H RBC (4.70 - 6.10 /CUMM) 4.87 4.74 Hgb (14.0 - 18.0 G/DL) 16.0 15.6 Hct (42 - 52 %) 48.1 47.1 MCV (80.0 - 94.0 FL) 98.8 H 99.4 H MCH (27.0 - 31.0 PG) 33.0 H 32.9 H MCHC (33.0 - 37.0 G/DL) 33.3 33.1 RDW (11.5 - 14.5 %) 14.1 14.1 Plt Count (130 - 400 /CUMM) 231 226 MPV (7.4 - 10.4 FL) 9.2 8.7 Gran % (42.2 - 75.2 %) 75.8 H 71.8 Lymphocytes % (20.5 - 51.1 %) 12.3 L 16.0 L Monocytes % (1.7 - 9.3 %) 10.9 H 11.6 H Eosinophils % (0 - 5 %) 0.7 0.2 Basophils % (0.0 - 2.0 %) 0.3 0.4 Absolute Granulocytes (1.4 - 6.5 /CUMM) 9.3 H 7.9 H Absolute Lymphocytes (1.2 - 3.4 /CUMM) 1.5 1.8 Absolute Monocytes (0.10 - 0.60 /CUMM) 1.3 H 1.3 H Absolute Eosinophils (0.0 - 0.7 /CUMM) 0.1 0 Absolute Basophils (0.0 - 0.2 /CUMM) 0 0 Assessment/Plan Assessment/Plan Impression from the perspective of the hernia repair he's doing well, the area needs to be kept dry and avoid any type of straining. Problem List: 1. 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 COPD (chronic obstructive pulmonary disease) Core Measures Venous Thromboembolism VTE Risk Factors Surgery No Mechanical VTE Prophylaxis d/t N/A MechProphylax Ordered No VTE Pharm Prophylaxis d/t Surgical Contraindication
--- NOTE | 2017-12-27 17:01 | Operative Report ---
Operative/Inv Procedure Report Surgery Date: 12/24/17 Name of Procedure: Open mesh repair of incarcerated umbilical hernia Pre-Operative Diagnosis: Incarcerated umbilical hernia Post-Operative Diagnosis: Same Estimated Blood Loss: scant Surgeon/Sales Operations: MD Pamela Dunaway Anesthesia: general endotracheal tube Operative/Procedure Note Note: Patient was placed on the OR table in the supine position. After successful induction of general anesthesia, another timeout was done, antibiotics given, the abdomen was clipped prepped and draped in the usual sterile fashion. At this point we were able to partially reduce the hernia contents. An incision was planned overlying the hernia, within the umbilical skin, this spot was infiltrated with local anesthetic and then made with a 15 blade. This was deepened with cautery and the incarcerated / herniated fat and overlying sac were dissected circumferentially off the fascia, defining the true edges of the defect, which was a transverse slit about 5 cm long there was no tension on the edges. We chose an oval 8 x 12 cm ventraleX coated mesh. It took some time to develop the space beneath bilateral rectus muscles then we inserted the mesh here and anchored it peripherally in 4 places, trans-musculofascial with 2-0 Prolene sutures, then closed the defect including small bites of the mesh with 0 Maxon. The subcutaneous layer and Enid's fascia were reapproximated to cover. The incision was irrigated and then the skin was reapproximated with a running subcuticular 4-0 Biosyn, followed by Mastisol, Steri-Strips cottonball, Tegaderm. EBL minimal lap and sponge counts correct wound expectancy clean IV fluids crystalloid complications none patient tolerated the procedure well was awakened extubated returned to the recovery room in satisfactory condition.
[2017-12-28 06:27] VITALS: BP 126/70
--- NOTE | 2017-12-28 07:04 | PN- Housestaff ---
Pallavi HARVEY,[facility] [place] 12/28/17 0703: Subjective Follow-up For: Bhumika Umbilical hernia alcohol detox acute hypoxic respiratory failure Tele-Events Since Last Visit: Bhumika with HR 86-97. Subjective: patient was seen and examined at bedside. He states he feels good. Has no complaints. Looks forward to being discharged. Review of Systems Constitutional: Reports: no symptoms. Objective Last 24 Hrs of Vital Signs/I&O Vital Signs Date Time Temp Pulse Resp B/P B/P Pulse O2 O2 Flow FiO2 Mean Ox Delivery Rate 12/28 0627 98.5 87 20 126/70 92 12/28 0030 83 95 12/27 2300 98.9 63 20 94 12/27 2142 100 130/70 12/27 2032 Nasal 4.0L Cannula 12/27 1335 98.3 93 20 130/70 94 Nasal Cannula 12/27 0900 93 Nasal 5.0L Cannula 12/27 0800 95 Nasal 5.0L Cannula Intake & Output 12/28 0800 12/28 0000 12/27 1600 Intake Total 480 360 660 Output Total 550 200 780 Balance -70 160 -120 Intake, IV 20 Intake, Oral 480 360 640 Output, Urine 550 200 780 Patient 335 lb Weight Physical Exam General Appearance: Alert, Oriented X3, Cooperative, Mild Distress Skin: No Rashes, No Breakdown Skin Temp/Moisture Exam: Warm/Dry Sepsis Skin Exam (color): Normal for Ethnicity HEENT: Atraumatic Cardiovascular: Normal S1, Normal S2, No Murmurs Lungs: Clear to Auscultation, Normal Air Movement Abdomen: Soft, No Tenderness Neurological: Normal Speech Extremities: No Cyanosis, No Edema Last 24 Hrs of Lab/Timothy Results Last 24 Hrs of Labs/Mics: Laboratory Tests 12/28/17 0631: Anion Gap 9, Estimated GFR > 60, BUN/Creatinine Ratio 35.0 H, Magnesium 1.8, CBC w Diff NO MAN DIFF REQ, RBC 4.47 L, MCV 99.0 H, MCH 32.8 H, MCHC 33.1, RDW 14.2, MPV 9.3, Gran % 76.0 H, Lymphocytes % 12.5 L, Monocytes % 9.8 H, Eosinophils % 1.4, Basophils % 0.3, Absolute Granulocytes 9.0 H, Absolute Lymphocytes 1.5, Absolute Monocytes 1.2 H, Absolute Eosinophils 0.2, Absolute Basophils 0 Assessment/Plan Assessment: 62 yo M with PMH significant for COPD, A.fib on pradaxa, JERRELL (not compliant with CPAP), Psoriatic arthritis, Venous insufficiency, regular alcohol consumption, hypertension presented to noe after developing abdominal pain this evening. Assessment: 1. Acute Hypoxic Respiratory Failure with Chronic Hypercapnic Respiratory Failure 2. Umbilical Hernia s/p repair 3. Alcohol Detox - resolved 4. Atrial Fibrilliation with RVR - now with improved rate control 5. History of COPD 6. History of JERRELL Plan: * Continue oxygen supplementation to maintain target sats >92%. Currently on 2L. He may need home oxygen. * Pain control with IV Dilaudidd 0.4mg q6p for severe pain and oxycodone 20mg q6p for moderate. * Continue TRC/Nebs as needed. * Pulm recs appreciated * increase metoprolol to 50mg BID and continue diltiazem 360mg (home dose) daily. * Continue PO Lasix 40mg daily and Pradaxa 150mg BID. * Repeat CXR yesterday showed mild pulmonary congestion. * Echocardiogram - Normal left and right ventricular systolic function. Moderate mitral regurgitation. * Continue thiamine, folic acid, multivitamins * Monitor electrolytes and replete as needed. * Nicotine patch 14mg daily. * Diet: Heart Healthy. * DVT Prophylaxis: Pradaxa * Code Status: Full Code Problem List: 1. Atrial fibrillation Pain Ratin Pain Location: none Pain Goal: Remain pain free Pain Plan: none Tomorrow's Labs & Rationales: CBC, BEP YoandyRachelle 12/28/17 1051: Attending MD Review Statement Attending Statement Attending MD Statement: examined this patient, discuss w/resident/PA/STAFF EDITOR, agreed w/resident/PA/STAFF EDITOR, discussed with family, reviewed EMR data (avail), discussed with nursing, discussed with case mgmt, reviewed images, amended to note Attending Assessment/Plan: The patient was seen and discussed with house staff. Patient oxygen requirement imrpoving using nasal oxygen. Encourage incentive spirometry. Had bowel movement today. Afib rate uncontrolled: cardizem 360 qd + metoprolol 50 bid, c/w pradaxa CHF with improvement on oral lasix. atelectasis in ciarra-operative period c/w IS alcohol abuse in past. recentyl detoxed ciarra-umbilicla hernia with repair, no acute issues. follow surgery as outpatient. consitpation with relief. chronic back pain on opitaes, monitor bowel movement DM RISS and titrate insulin as needed hypertension controlled c/w regimen JERRELL on cpap at night, non compliant. gi/dvt prophyalxis full code. Monitor heart rate and PT consult today. plan of care d.wed patient bedside. Anticipate dc planning in next 24-48 hrs.
[2017-12-28 07:51] LABS: ABSOLUTE BASOPHIL COUNT 0 /CUMM (0.0-0.2); ABSOLUTE EOSINOPHIL COUNT 0.2 /CUMM (0.0-0.7); ABSOLUTE LYMPH COUNT 1.5 /CUMM (1.2-3.4); ABSOLUTE MONOCYTE COUNT 1.2 /CUMM (0.10-0.60); BASOPHIL % 0.3 % (0.0-2.0); EOSINOPHIL % 1.4 % (0-5); HEMATOCRIT 44.3 % (42-52); MEAN CORPUSCULAR HGB 32.8 PG (27.0-31.0); MEAN CORPUSCULAR HGB CONC 33.1 G/DL (33.0-37.0); MEAN PLATELET VOLUME 9.3 FL (7.4-10.4); PLATELET COUNT 237 /CUMM (130-400); RBC DISTRIBUTION WIDTH 14.2 % (11.5-14.5); RED BLOOD CELL CT 4.47 /CUMM (4.70-6.10); WHITE BLOOD CELL COUNT 11.8 /CUMM (4.8-10.8)
--- NOTE | 2017-12-28 08:47 | PN- Pulmonary ---
Subjective HPI/Critical Care Issues: Patient is awake alert feels improved with no shortness of breath Objective Current Medications: Current Medications Sig/Pablo Start time Last Medication Dose Route Stop Time Status Admin Albuterol Sulfate 2 PUF Q4P PRN 12/19 1030 AC INH Allopurinol 300 MG DAILY 12/20 0900 AC 12/27 PO 0844 Alprazolam 0.5 MG TID PRN 12/26 1130 AC 12/28 PO 0052 Amlodipine Besylate 10 MG DAILY 12/25 1533 DC 12/27 PO 0844 Atorvastatin Calcium 10 MG 1700 12/19 1700 AC 12/27 PO 2141 Bisacodyl 5 MG DAILY PRN 12/21 1615 AC 12/27 PO 1231 Budesonide/ 2 PUF BID 12/19 2100 AC 12/27 Formoterol Fumarate INH 2142 Cyanocobalamin 250 MCG DAILY 12/20 0900 AC 12/27 PO 0844 Dabigatran 150 MG BID 12/25 0900 AC 12/27 PO 2141 Diltiazem HCl 360 MG DAILY 12/28 09 AC PO Diltiazem HCl 240 MG DAILY 12/20 0900 DC 12/27 PO 0844 Docusate Sodium 100 MG DAILY NEEDED PRN 12/21 1615 AC PO Docusate Sodium 100 MG DAILY 12/20 09 AC 12/27 PO 0846 Fentanyl Citrate 100 MCG Q72 12/20 09 DC 12/26 TOP 0851 Folic Acid 1 MG DAILY 12/20 0900 AC 12/27 PO 0844 Furosemide 40 MG DAILY 12/23 0900 AC 12/27 PO 0844 Hydromorphone HCl 0.4 MG Q6P PRN 12/27 0900 AC 12/28 IV 0052 Hydromorphone HCl 1 MG Q6P PRN 12/25 1045 DC 12/27 IV 0649 Insulin Aspart 0 TIDAC 12/24 2145 AC SC Lisinopril 20 MG DAILY 12/20 09 AC 12/27 PO 0844 Melatonin 5 MG AT BEDTIME NEED.. 12/23 0245 AC 12/25 PO 2352 Metoprolol Tartrate 25 MG BID 12/21 0900 AC 12/27 PO 2142 Multivitamins 1 TAB DAILY 12/20 09 AC 12/27 PO 0844 Nicotine 14 MG Q24 12/20 09 AC 12/27 TOP 0846 Nystatin 1 JAY JAY BID 12/23 1147 DC 12/25 TOP 2103 Oxycodone HCl 10 MG 4 TIMES/DAY PRN 12/27 1538 AC 12/28 PO 0342 Oxycodone HCl 20 MG 4 TIMES/DAY PRN 12/26 1130 DC 12/27 PO 1449 Potassium Chloride 10 MEQ DAILY 12/20 09 AC 12/27 PO 0844 Senna 187 MG AT BEDTIME 12/21 2100 AC 12/27 PO 2142 Thiamine HCl 100 MG DAILY 12/20 09 AC 12/27 PO 0844 Vital Signs & I&O Last 24 Hrs of Vitals and I&O: Vital Signs Date Time Temp Pulse Resp B/P B/P Pulse O2 O2 Flow FiO2 Mean Ox Delivery Rate 12/28 0627 98.5 87 20 126/70 92 12/28 0030 83 95 12/27 2300 98.9 63 20 94 12/27 2142 100 130/70 12/27 2032 Nasal 4.0L Cannula 12/27 1335 98.3 93 20 130/70 94 Nasal Cannula 12/27 0900 93 Nasal 5.0L Cannula Intake & Output 12/28 1600 12/28 0800 12/28 0000 Intake Total 480 360 Output Total 550 200 Balance -70 160 Intake, Oral 480 360 Output, Urine 550 200 Patient 335 lb Weight Oxygen saturation 4 L 90-95% exam of his chest shows decreased breath sounds cardiac exam shows regular S1 and S2 without murmurs Impression/Plan Impression/Plan Impression/Plan: 62-year-old with improved acute on chronic hypercapnic respiratory failure acute hypoxic respiratory failure secondary to COPD obesity alveolar hypoventilation and obstructive sleep apnea. CHF appears improved Recommendations: Taper FiO2 with improved saturations. Patient again encouraged to consider outpatient sleep study and nasal BiPAP continue negative fluid balance. No further pulmonary suggestions patient should be seen in the office for arrangement of outpatient sleep study and pulmonary function testing
--- NOTE | 2017-12-28 10:06 | PN- Cardiology ---
Subjective Subjective: Patient complains about the food and is upset about having to remain in the hospital. He denies chest pain or shortness of breath. Review of Systems: Eyes no blurred or double vision Ears no deafness or ringing Nose and throat no recurrent sinusitis Lungs per history of present illness Heart per history of present illness Abdomen no nausea vomiting Musculoskeletal occasional muscle and joint pains Psych no anxiety or depression Neuro without recurrent headache or seizures Endocrine no heat or cold intolerance Objective Vital Signs and I&Os Vital Signs Date Time Temp Pulse Resp B/P B/P Pulse O2 O2 Flow FiO2 Mean Ox Delivery Rate 12/28 922 128 130/60 12/28 06 98.5 87 20 126/70 92 12/28 0030 83 95 12/27 2300 98.9 63 20 94 12/27 2142 100 130/70 12/27 203 Nasal 4.0L Cannula 12/27 133 98.3 93 20 130/70 94 Nasal Cannula Intake & Output 12/28 1600 12/28 0800 12/28 0000 12/27 1600 12/27 0800 12/27 0000 Intake Total 480 360 660 400 420 Output Total 550 200 780 675 225 Balance -70 160 -120 -275 195 Intake, IV 20 Intake, Oral 480 360 640 400 420 Output, Urine 550 200 780 675 225 Patient 335 lb 335 lb Weight Physical Exam: Patient is a well-developed well-nourished male appearing in no acute distress HEENT is unremarkable Neck is supple there is no JVD Lungs are clear Heart irregular rhythm S1 and S2 are normal no murmurs gallops or rubs Abdomen bowel sounds positive Extremities without edema Current Medications: Current Medications Sig/Pablo Start time Last Medication Dose Route Stop Time Status Admin Albuterol Sulfate 2 PUF Q4P PRN 12/19 1030 AC INH Allopurinol 300 MG DAILY 12/20 0900 AC 12/28 PO 0923 Alprazolam 0.5 MG TID PRN 12/26 1130 AC 12/28 PO 0052 Amlodipine Besylate 10 MG DAILY 12/25 1533 DC 12/27 PO 0844 Atorvastatin Calcium 10 MG 1700 12/19 1700 AC 12/27 PO 2141 Bisacodyl 5 MG DAILY PRN 12/21 1615 AC 12/27 PO 1231 Budesonide/ 2 PUF BID 12/19 2100 AC 12/28 Formoterol Fumarate INH 0923 Cyanocobalamin 250 MCG DAILY 12/20 899 AC 12/28 PO 0923 Dabigatran 150 MG BID 12/25 09 AC 12/28 PO 0923 Diltiazem HCl 360 MG DAILY 12/28 899 AC 12/28 PO 09 Diltiazem HCl 240 MG DAILY 12/20 0900 DC 12/27 PO 0844 Docusate Sodium 100 MG DAILY NEEDED PRN 12/21 1615 AC PO Docusate Sodium 100 MG DAILY 12/20 09 AC 12/28 PO 0923 Folic Acid 1 MG DAILY 12/20 09 AC 12/28 PO 0923 Furosemide 40 MG DAILY 12/23 09 AC 12/28 PO 0923 Hydromorphone HCl 0.4 MG Q6P PRN 12/27 899 AC 12/28 IV 0052 Insulin Aspart 0 TIDAC 12/24 2145 SC Lisinopril 20 MG DAILY 12/20 09 AC 12/28 PO 0923 Melatonin 5 MG AT BEDTIME NEED.. 12/23 0245 12/25 PO 2352 Metoprolol Tartrate 25 MG BID 12/21 09 AC 12/28 PO 0923 Multivitamins 1 TAB DAILY 12/20 09 AC 12/28 PO 0923 Nicotine 14 MG Q24 12/20 09 12/28 TOP 0925 Nystatin 1 JAY JAY BID 12/23 1147 MT 12/25 TOP 2103 Oxycodone HCl 10 MG 4 TIMES/DAY PRN 12/27 1538 AC 12/28 PO 0926 Oxycodone HCl 20 MG 4 TIMES/DAY PRN 12/26 1130 MT 12/27 PO 1449 Potassium Chloride 10 MEQ DAILY 12/20 899 AC 12/28 PO 0923 Senna 187 MG AT BEDTIME 12/21 2100 AC 12/27 PO 2142 Thiamine HCl 100 MG DAILY 12/20 09 AC 12/28 PO 0923 Results Last 48 Hrs of Labs/Mics: Laboratory Tests 12/28/17 0631: Anion Gap 9, Estimated GFR > 60, BUN/Creatinine Ratio 35.0 H, Magnesium 1.8, CBC w Diff NO MAN DIFF REQ, RBC 4.47 L, MCV 99.0 H, MCH 32.8 H, MCHC 33.1, RDW 14.2, MPV 9.3, Gran % 76.0 H, Lymphocytes % 12.5 L, Monocytes % 9.8 H, Eosinophils % 1.4, Basophils % 0.3, Absolute Granulocytes 9.0 H, Absolute Lymphocytes 1.5, Absolute Monocytes 1.2 H, Absolute Eosinophils 0.2, Absolute Basophils 0 12/27/17 0626: CBC w Diff NO MAN DIFF REQ, RBC 4.87, MCV 98.8 H, MCH 33.0 H, MCHC 33.3, RDW 14.1, MPV 9.2, Gran % 75.8 H, Lymphocytes % 12.3 L, Monocytes % 10.9 H, Eosinophils % 0.7, Basophils % 0.3, Absolute Granulocytes 9.3 H, Absolute Lymphocytes 1.5, Absolute Monocytes 1.3 H, Absolute Eosinophils 0.1, Absolute Basophils 0 Telemetry personally reviewed atrial fibrillation with rapid ventricular response heart rate up to 140 Assessment/Plan Assessment/Plan #1. Persistent atrial fibrillation on Pradaxa currently on hold with rapid ventricular response most likely secondary to alcohol withdrawal #2. Diabetes #3. Hypertension #4. Obstructive sleep apnea/COPD #5. Periumbilical hernia requiring surgical intervention #6. Alcohol abuse with DTs Recommendations 1. Continue current dose of diltiazem 2. Would increase metoprolol to 50 mg twice daily for rate control 3. Continue to monitor on telemetry Continue telemetry? Yes
[2017-12-28] MEDS ORDERED: METOPROLOL TART50 M1 PO (11:44)
[2017-12-28 14:10] VITALS: BP 124/72
[2017-12-28 22:51] VITALS: BP 120/74
[2017-12-29 07:02] VITALS: BP 138/74
--- NOTE | 2017-12-29 07:07 | PN- Housestaff ---
Pallavi HARVEY,[facility] 12/29/17 0707: Subjective Follow-up For: Bhumika Umbilical hernia alcohol detox acute hypoxic respiratory failure Tele-Events Since Last Visit: Bhumika with HR 71-104. Subjective: Feels well. States his breathing is good. Offers no complaints. Eager to go home. Review of Systems Constitutional: Reports: no symptoms. Objective Last 24 Hrs of Vital Signs/I&O Vital Signs Date Time Temp Pulse Resp B/P B/P Pulse O2 O2 Flow FiO2 Mean Ox Delivery Rate 12/29 0702 97.9 100 20 138/74 95 Nasal 2.0L Cannula 12/29 0000 Nasal 2.0L Cannula 12/28 2251 99.2 76 20 120/74 93 Nasal Cannula 12/28 2119 93 124/72 12/28 1410 98.3 93 18 124/72 93 Nasal Cannula 12/28 1106 91 Nasal 2.0L Cannula 12/28 1040 86 Room Air 12/28 0923 128 130/60 Intake & Output 12/29 1600 12/29 0800 12/29 0000 Intake Total 400 400 Output Total Balance 400 400 Intake, Oral 400 400 Patient 332 lb Weight Weight Bed scale Measurement Method Physical Exam General Appearance: Alert, Oriented X3, Cooperative, Mild Distress Skin: No Rashes, No Breakdown Skin Temp/Moisture Exam: Warm/Dry Sepsis Skin Exam (color): Normal for Ethnicity HEENT: Atraumatic Cardiovascular: Normal S1, Normal S2, No Murmurs Lungs: Normal Air Movement Abdomen: Soft, No Tenderness Neurological: Normal Speech Extremities: No Edema Last 24 Hrs of Lab/Timothy Results Last 24 Hrs of Labs/Mics: Laboratory Tests 12/29/17 0631: Sodium Pending, Potassium Pending, Chloride Pending, Carbon Dioxide Pending, Anion Gap Pending, BUN Pending, Creatinine Pending, BUN/Creatinine Ratio Pending , CBC w Diff Pending, WBC Pending, RBC Pending, Hgb Pending, Hct Pending, MCV Pending, MCH Pending, MCHC Pending, RDW Pending, Plt Count Pending, MPV Pending Assessment/Plan Assessment: 62 yo M with PMH significant for COPD, Bhumika on pradaxa, JERRELL (not compliant with CPAP), Psoriatic arthritis, Venous insufficiency, regular alcohol consumption, hypertension presented to [facility] after developing abdominal pain this evening. Assessment: 1. Acute Hypoxic Respiratory Failure with Chronic Hypercapnic Respiratory Failure 2. Umbilical Hernia s/p repair 3. Alcohol Detox - resolved 4. Atrial Fibrilliation with RVR - now with improved rate control 5. History of COPD 6. History of JERRELL Plan: * Off oxygen on room air with saturations of 93%. * Stable to be discharged today. * Continue metoprolol 50mg BID and diltiazem 360mg (home dose) daily. * Continue PO Lasix 40mg daily and Pradaxa 150mg BID. * Echocardiogram - Normal left and right ventricular systolic function. Moderate mitral regurgitation. * Outpatient follow up with general surgery and pulmonary. He may need further testing like PFTs and sleep study. * Nicotine patch 14mg daily. * Diet: Heart Healthy. * DVT Prophylaxis: Pradaxa * Code Status: Full Code Problem List: 1. Atrial fibrillation Pain Ratin Pain Location: none Pain Goal: Remain pain free Pain Plan: none Tomorrow's Labs & Rationales: none Rachelle Pitt 12/29/17 1206: Attending MD Review Statement Attending Statement Attending MD Statement: examined this patient, discuss w/resident/PA/BIOMATERIALS ENGINEER, agreed w/resident/PA/BIOMATERIALS ENGINEER, discussed with family, reviewed EMR data (avail), discussed with nursing, discussed with case mgmt, reviewed images, amended to note Attending Assessment/Plan: Patient clinically improving, his surgical site clean and needs to follow up 1. Pulmoanry in 2-3 weeks for outpatient sleep stuides. 2. General surgery Dr Crawford in 1 week 3. PCP in 1 week of discharge.
[2017-12-29] MEDS ORDERED: VENTOLIN HFA18 GM INH (08:03)
[2017-12-29] MEDS ORDERED: PROAIR HFA8.5 GM INH (08:05)
[2017-12-29 08:12] LABS: ABSOLUTE BASOPHIL COUNT 0.1 /CUMM (0.0-0.2); ABSOLUTE EOSINOPHIL COUNT 0.2 /CUMM (0.0-0.7); ABSOLUTE GRANULOCYTE CT 7.9 /CUMM (1.4-6.5); ABSOLUTE LYMPH COUNT 1.9 /CUMM (1.2-3.4); BASOPHIL % 0.5 % (0.0-2.0); GRANULOCYTE % 70.7 % (42.2-75.2); HEMATOCRIT 45.6 % (42-52); MEAN CORPUSCULAR HGB 32.8 PG (27.0-31.0); MEAN CORPUSCULAR HGB CONC 33.1 G/DL (33.0-37.0); MEAN CORPUSCULAR VOLUME 99.2 FL (80.0-94.0); MEAN PLATELET VOLUME 9.4 FL (7.4-10.4); PLATELET COUNT 276 /CUMM (130-400); RBC DISTRIBUTION WIDTH 13.9 % (11.5-14.5); WHITE BLOOD CELL COUNT 11.1 /CUMM (4.8-10.8)
--- NOTE | 2017-12-29 08:36 | PN- Pulmonary ---
Subjective HPI/Critical Care Issues: Patient's respiratory status continues to improve oxygen requirements have decreased from 5-2 L Objective Current Medications: Current Medications Sig/Pablo Start time Last Medication Dose Route Stop Time Status Admin Albuterol Sulfate 2 PUF Q4P PRN 12/19 1030 AC INH Allopurinol 300 MG DAILY 12/20 0900 AC 12/28 PO 0923 Alprazolam 0.5 MG TID PRN 12/26 1130 DC 12/29 PO 0039 Atorvastatin Calcium 10 MG 1700 12/19 1700 AC 12/28 PO 1729 Bisacodyl 5 MG DAILY PRN 12/21 1615 AC 12/27 PO 1231 Budesonide/ 2 PUF BID 12/19 2100 AC 12/28 Formoterol Fumarate INH 2120 Cyanocobalamin 250 MCG DAILY 12/20 0900 AC 12/28 PO 0923 Dabigatran 150 MG BID 12/25 0900 AC 12/28 PO 2119 Diltiazem HCl 360 MG DAILY 12/28 0900 AC 12/28 PO 0922 Docusate Sodium 100 MG DAILY NEEDED PRN 12/21 1615 AC PO Docusate Sodium 100 MG DAILY 12/20 0900 AC 12/28 PO 0923 Folic Acid 1 MG DAILY 12/20 0900 AC 12/28 PO 0923 Furosemide 40 MG DAILY 12/23 0900 AC 12/28 PO 0923 Hydromorphone HCl 0.4 MG Q6P PRN 12/27 0900 AC 12/29 IV 0701 Insulin Aspart 0 TIDAC 12/24 2145 AC SC Lisinopril 20 MG DAILY 12/20 0900 AC 12/28 PO 0923 Melatonin 5 MG AT BEDTIME NEED.. 12/23 0245 AC 12/25 PO 2352 Metoprolol Tartrate 50 MG BID 12/28 2100 AC 12/28 PO 211 Metoprolol Tartrate 25 MG ONCE ONE 12/28 1030 DC 12/28 PO 12/28 1031 1035 Metoprolol Tartrate 25 MG BID 12/21 0900 DC 12/28 PO 09 Multivitamins 1 TAB DAILY 12/20 0900 AC 12/28 PO 0923 Nicotine 14 MG Q24 12/20 0900 AC 12/28 TOP 0925 Oxycodone HCl 10 MG ONCE ONE 12/28 1030 DC 12/28 PO 12/28 1031 1036 Oxycodone HCl 20 MG 4 TIMES/DAY PRN 12/28 1016 AC 12/29 PO 0438 Oxycodone HCl 10 MG 4 TIMES/DAY PRN 12/27 1538 DC 12/28 PO 09 Potassium Chloride 10 MEQ DAILY 12/20 899 AC 12/28 PO 922 Senna 187 MG AT BEDTIME 12/21 2100 AC 12/28 PO 2118 Thiamine HCl 100 MG DAILY 12/20 09 AC 12/28 PO 922 Vital Signs & I&O Last 24 Hrs of Vitals and I&O: Vital Signs Date Time Temp Pulse Resp B/P B/P Pulse O2 O2 Flow FiO2 Mean Ox Delivery Rate 12/29 0702 97.9 100 20 138/74 95 Nasal 2.0L Cannula 12/29 0000 Nasal 2.0L Cannula 12/28 2251 99.2 76 20 120/74 93 Nasal Cannula 12/28 2119 93 124/72 12/28 1410 98.3 93 18 124/72 93 Nasal Cannula 12/28 1106 91 Nasal 2.0L Cannula 12/28 1040 86 Room Air 12/28 922 128 130/60 Intake & Output 12/29 1600 12/29 0800 12/29 0000 Intake Total 400 400 Output Total Balance 400 400 Intake, Oral 400 400 Patient 332 lb Weight Weight Bed scale Measurement Method Since saturation 2 L 95% exam of his chest shows decreased breath sounds are no wheezes or crackles cardiac exam shows regular rhythm Impression/Plan Impression/Plan Impression/Plan: 62-year-old gentleman with chronic hypoxic history failure improved hypercapnic respiratory failure has improved oxygen requirements Recommendations: Taper FiO2 with improved saturations. Please arrange outpatient follow-up for pulmonary function testing and nocturnal polysomnography
[2017-12-29] MEDS ORDERED: SENNA8.6 M3 PO ×2 (08:42→09:57)
[2017-12-29] MEDS ORDERED: COLACE100 M1 PO ×2 (08:42→09:57)
[2017-12-29 09:00] VITALS: BP 144/80
[2017-12-29] MEDS ORDERED: METOPROLOL TART50 M1 PO (09:57)
== END 2017-12-29 11:40 | DRG 353 ==
LOC: ERH 21:41 → ERHI 12-17 01:17 → 1NO 12-17 01:17 → ENRESERV 12-17 02:49 → 2NA 12-17 03:33 → 1NO 12-19 11:35 → ENPENDDIS 12-29 10:00 → ENTRNSPT 12-29 11:29 → EDTRNSPT 12-29 11:33 → EDTRNSPTSTS 12-29 11:33 → 1NO 12-29 11:40 → CMPTRNSPT 12-29 11:47
PROVIDERS: Dermatology; Internal Medicine; Physician Assistant; Preventive Medicine Public Health & General Preventive Medicine; Student in an Organized Health Care Education/Training Program; Surgery
PROC: 0WUF0JZ Supplement Abdominal Wall with Synthetic Substitute, Open Approach (ICD-10-PCS; principal; 2017-12-24)
DX: K42.0 Umbilical hernia with obstruction, without gangrene (principal); J96.01 Acute respiratory failure with hypoxia; E11.8 Type 2 diabetes mellitus with unspecified complications; I11.0 Hypertensive heart disease with heart failure; I50.9 Heart failure, unspecified; E66.01 Morbid (severe) obesity due to excess calories; F13.20 Sedative, hypnotic or anxiolytic dependence, uncomplicated; I48.1 Persistent atrial fibrillation; J96.12 Chronic respiratory failure with hypercapnia; F10.239 Alcohol dependence with withdrawal, unspecified; Z68.41 Body mass index [BMI] 40.0-44.9, adult; L40.50 Arthropathic psoriasis, unspecified; Z79.01 Long term (current) use of anticoagulants; J44.9 Chronic obstructive pulmonary disease, unspecified; G47.33 Obstructive sleep apnea (adult) (pediatric); Z79.4 Long term (current) use of insulin; G89.29 Other chronic pain; F17.200 Nicotine dependence, unspecified, uncomplicated; Z79.84 Long term (current) use of oral hypoglycemic drugs
CPT/HCPCS: 1NP; 1NSP; 2NAP; 36415; 36592; 71045; 71046; 74177; 81001; 82436; 93005; 93010; 93306; 96361; 96365; 96375; 96376; 97116-GO; 97161-GP; 99291; C1781; C9399; G0480; J0131; J0690; J1100; J1170; J1644; J1815; J1885; J1940; J2405; J2920; J3490; J7042; J7060; S5012